=== PATIENT | female | born 1970 | race Caucasian/White ===

== ENCOUNTER 2024-05-04 09:05 | Emergency (ER) | payer OTHER, SELFPAY ==
--- OUTSIDE RECORDS SUMMARY | 2024-05-04 09:09 | XMS_ITS | Encounter Summary ---
Author Organization [facility] Address [address] [place] [address]. [place] [address] Care Team Providers Care Bedspread Seamer Name Role Phone Maria Garcia EXHIBITS COORDINATOR Unavailable [phone] Rachana Collins Brien Hannon Unavailable [phone] Sonja Lemon MD Unavailable [phone] Anitra Albarran MD Unavailable [phone] Jayla Metcalf MD Primary Care Provider Jayla Metcalf MD Unavailable Maxi Massey MD Unavailable [phone] Olga Lui APRN [facility] Unavailable Reason for Visit * Reason Onset Date Comments Vaginal Discharge Entered automa tically based on patient selection in [facility] Vaginal Problem 03/27/2024 Encounter Details Date Type Department Care Team (Late st Contact Info) Description 03/27/2024 3:30 PM SUPERVISING FLOORPERSON E-Visit [facility] [address] [place] [address] [place] [address] [place] [address] Vaginal Discharge (Entered automatically b... Social History Tobacco Use Types Packs/Day Years Used Date Smoking Tobacco: Former Cigarettes Passive Smoke Exposure: Past Smokeless Tobacco: Never Alcohol Use Standard Drinks/Week Comments Yes 0 (1 standard drink = 0.6 oz pur e alcohol) PHQ-2 Answer Date Recorded PHQ-2 Score 0 04/15/2023 Adolescent Education Answer Date Record ed Getting School Help Needed Not on file 11/27 Food Insecurity Answer Date Recorded Within the past 12 months, d id you worry that your food would run out before you got money to buy more? Patient refused 2022 Within the past 12 months, d id the food you bought just not last and you didn t have money to get more? Patient refused 01/31/2023 Housing Stability Answer Date Recorded Do you have housing? (Barrie g is defined as stable permanent housing and does not include staying ouside in a car, in a tent, in an abandoned building, in an overnight custodial, or couch-surfing.) Patient refused 01/31/2023 Are you worried about losing your housing? Patie nt refused 01/31/2023 Financial Resource Strain Answer Date R ecorded Within the past 12 months, h ave you or your family members you live with been unable to get utilities (heat, electricity) when it was really needed? Patient refused 023 Transportation Needs Answer Date Record ed Within the past 12 months, h as lack of transportation kept you from medical appointments, getting your medicines, non-medical meetings or appointments, work, or from getting things that you need? Patient refused 01/31/2023 Interpersonal Safety Answer Date Record ed Do you feel physically and e motionally safe where you currently live? Yes 12/20/2023 Within the past 12 months, h ave you been hit, slapped, kicked or otherwise physically hurt by someone? No 12/20/2023 Within the past 12 months, h ave you been humiliated or emotionally abused in other ways by your partner or ex-partner? No 12/20/2023 Comments No Sex and Gender Information Value Date Recorded Sex Assigned at Not on file Legal Sex Female 6:22 AM SUPERVISING FLOORPERSON Gender Identity Not on file Sexual Orientation Not on file documented as of this encounter Miscellaneous Notes * Addendum Note - Jayla Metcalf MD - 03/27/2024 3:30 PM CSTAddended by: JAYLA METCALF on: 03/29/2024 12:31 PM Modules accepted: Orders RVISING FLOORPERSON * Telephone Encounter - Jayla Metcalf MD - 03/27/2024 3:23 PM CST Provider E-Visit time total (minutes): 4 RVISING FLOORPERSON documented in this encounter Plan of Treatment Upcoming Encounters Date Type Department Care Team (Late st Contact Info) Description 05/10/2024 3:00 PM SUPERVISING FLOORPERSON [facility] [address] [place] [address] [place] [address] [place] [address] documented as of this encounter Results * Multiplex Vaginal Panel by PCR (03/28/2024 1:56 PM SUPERVISING FLOORPERSON) Pathologist [facility] Bacterial Vaginosis Organism DNA Negative Negative 03/28/2024 8:57 PM SUPERVISING FLOORPERSON [facility] Comment: Indicator DNA target(s) related to bacterial vaginosis organisms is/are not detected. Organisms associated with bacterial vaginosis that are targeted in this assay include Atopobium spp., Bacterial Vaginosis-Associated Bacterium-2, and Megasphaera-1. Detected organisms are not reported individually. Rita Group DNA Not Detected Not Detected 03/28/2024 8:57 PM SUPERVISING FLOORPERSON [facility] Comment:Rita group specie s detected by this target include C. albicans, C. tropicalis, C. parapsilosis, C. dubliniensis. Rita glabrata / Rita krusei DNA Not Detected Not Detected 03/28/2024 8:57 PM SUPERVISING FLOORPERSON [facility] Trichomonas vaginalis DNA Not Detected Not Detected 03/28/2024 8:57 PM SUPERVISING FLOORPERSON [facility] Swab VAGINAL STRUCTURE / Unknown Non-blood Collection / Unknown 03/28/2024 1:56 PM SUPERVISING FLOORPERSON 03/28/2024 1:56 PM SUPERVISING FLOORPERSON Narrative [facility] - 03/28/2024 8:57 PM SUPERVISING FLOORPERSON The Xpert Xpress MVP test, performed on the [employer], is an automated, qualitative in vitro diagnostic test for the detection of DNA targets from anaerobic bacteria associated with bacterial vaginosis, Rita species associated with vulvovaginal candidiasis, and Trichomonas vaginalis. The assay uses clinician-collected and self-collected vaginal swabs from patients who are symptomatic for vaginitis/ vaginosis. The Xpert Xpress MVP test utilizes real-time polymerase chain reaction (PCR) for the amplification of specific DNA targets and utilizes fluorogenic target-specific hybridization probes to detect and differentiate DNA. It is intended to aid in the diagnosis of vaginal infections in women with a clinical presentation consistent with bacterial vaginosis, vulvovaginal candidiasis, or trichomoniasis. The assay targets three anaerobic microorgansims that are associated with bacterial vaginosis (BV). Other organisms that are not detected by the Xpert Xpress MVP test have also been reported to be associated with BV. The BV organism and Rita species targets of the Xpert Xpress MVP test can be commensal in women; positive results must be considered in conjunction with other clinical and patient information to determine the disease status. Jayla Metcalf MD LAB - MICRO GENERAL ORDERABLES F inal Result [facility] Inf. Diseases Diag. Lab [address] [facility], [address] [place] [id number] documented in this encounter Visit Diagnoses Diagnosis Abdominal pain, left lower quadrant- Primary Thrush Candidiasis of mouth documented in this encounter Care Teams Bedspread Seamer Relationship Specialty Start [place] [address] [place] [address] PCP - General Internal Medicine 11/21/23 Maria Garcia NP [address] [place] [address] Nurse Practitioner 09/28/22 Rachana Collins AuD [address] [place] [address] Stock Analyst Audiology 09/28/22 Sonja Lemon MD [address] [place] [address] parking meter collector 07/26/23 Anitra Albarran MD [address] [place] [address] parking meter collector 09/26/23 [place] [address] [place] [address] Assigned PCP 12/28/23 Maxi Massey MD [address] [place] [address] parking meter collector 02/15/24 Olga Lui APRN [employer] [address] [address] Assigned OBGYN Provider 03/29/24 documented as of this encounter
--- OUTSIDE RECORDS SUMMARY | 2024-05-04 09:09 | XMS_ITS | Encounter Summary ---
Author Organization [facility] Address [address] [place] [address] Care Team Providers Care Apprentice Name Role Phone Maria Garcia SOLAR PROJECT MANAGER Unavailable [phone] Rachana Collins AuD Unavailable [phone] Sonja Lemon MD Unavailable [phone] Anitra Albarran MD Unavailable [phone] Jackelyn Metcalf MD Primary Care Provider [phone] Jackelyn Metcalf MD Unavailable Maxi Massey MD Unavailable [phone] Encounter Details Date Type Department Care Team (Latest Contact Info) Description 03/28/2024 Travel Social History Tobacco Use Types Packs/Day Years [...] Answer Date Recorded Do you have housing? (Housin g is defined as stable permanent housing and does not include staying ouside in a car, in a tent, in an abandoned building, in an overnight chcf, or couch-surfing.) Patient refused 01/31/2023 Are you worried about losing your housing? Kassidye nt refused 01/31/2023 Financial Resource Strain Answer [...] on file Legal Sex Female 6:22 AM SENIOR OPERATOR Gender Identity Not on file Sexual Orientation Not on file documented as of this encounter Plan of Treatment Upcoming Encounters Date Type Department Care Team (Late st Contact Info) Description 05/10/2024 3:00 PM SENIOR OPERATOR Office Visit [facility] [address] [place] [address] [place] [address] [place], [place] [id number] documented as of this encounter Visit Diagnoses Not on filedocumented in this encounter Care Teams Apprentice Relationship Specialty Start [place] [address] [address] [facility] [place] [id number] PCP - General Internal Medicine 11/21/23 Maria Garcia NP [address] [place] [address] Nurse Practitioner 09/28/22 Rachana Collins AuD [address] [place] [address] Mechanical Estimator Audiology 09/28/22 Sonja Lemon MD [address] [place] [address] byproduct engineer 07/26/23 Anitra Albarran MD [address] [place] [address] byproduct engineer 09/26/23 [place] [address] [place] [address] Assigned PCP 12/28/23 Maxi Massey MD [address] [place] [address] byproduct engineer 02/15/24 documented as of this encounter
--- OUTSIDE RECORDS SUMMARY | 2024-05-04 09:09 | XMS_ITS | Encounter Summary ---
Author Organization [facility] Address [address] [place] [address] Care Team Providers Care Scientific Process Operator Name Role Phone Maria Garcia CANDLE POURER Unavailable [phone] Rachana Collins Unavailable [phone] Sonja Lemon MD Unavailable [phone] Anitra Albarran MD Unavailable [phone] Jayla Metcalf MD Primary Care Provider [phone] Jayla Metcalf MD Unavailable Maxi Massey MD Unavailable [phone] Olga Lui APRN [facility] Unavailable [phone] Encounter Details Date Type Department Care Team (Late st Contact Info) Description 04/12/2024 8:00 AM [facility] [address] [place] [address] Vaginal discharge Social History Tobacco Use Types Packs/Day Years [...] Date Recorded Do you have housing? (Barrie santos is defined as stable permanent housing and does not include staying ouside in a car, in a tent, in an abandoned building, in an overnight nursing home, or couch-surfing.) Patient refused 01/31/2023 Are you [...] on file Legal Sex Female 6:22 AM GANG PUSHER Gender Identity Not on file Sexual Orientation Not on file documented as of this encounter Miscellaneous Notes * Addendum Note - Jayla Metcalf MD - 04/12/2024 8:00 AM CSTAddended by: JAYLA METCALF T on: 04/12/2024 08:10 AM Modules accepted: Orders PUSHER documented in this encounter Plan of Treatment Upcoming Encounters Date Type Department Care Team (Late st Contact Info) Description 05/10/2024 3:00 PM GANG PUSHER Office Visit [facility] [address] [place] [id number] [place] [address] [place] [id number] Scheduled Orders Name Type Priority Associated Diagnoses Orde r Schedule Wet prep - lab collect Microbiology Routine Vaginal discharge 12 Occurrences starting 04/12/2024 until 04/12/2025, 2 completed documented as of this encounter Procedures Procedure Name Priority Date/Time Associated Diagnosis Comments WET PREPARATION Routine 04/12/2024 7:19 AM GANG PUSHER Vaginal discharge documented in this encounter Results * (ABNORMAL) Wet prep - lab collect (04/24/2024 11:58 AM GANG PUSHER) Trichomonas Absent Absent KAVYA 04/24/2024 12:04 PM GANG PUSHER RM LABORATORY Yeast Absent Absent KAVYA 04/24/2024 12:04 PM GANG PUSHER RM LABORATORY Clue Cells Absent Absent KAVYA 04/24/2024 12:04 PM GANG PUSHER RM LABORATORY WBCs/high power field 2+(A) None KAVYA 04/24/2024 12:04 PM GANG PUSHER RM LAB[facility]ATORY Swab VAGINAL STRUCTURE / Unknown Non-blood Collection / Unknown 04/24/2024 11:58 AM GANG PUSHER 04/24/2024 11:58 AM GANG PUSHER us Jayla Metcalf MD LAB - MICRO GENERAL ORDERABLES F inal Result LABORATORY [facility] [place] [facility] [address] [facility] (no room number, 1st floor of clinic) [place] [address], [facility] * (ABNORMAL) Wet prep - lab collect (04/18/2024 3:39 PM GANG PUSHER) Trichomonas Absent Absent KAVYA 04/18/2024 3:53 PM GANG PUSHER RM LABORATORY Yeast Absent Absent KAVYA 04/18/2024 3:53 PM GANG PUSHER RM LABORATORY Clue Cells Present(A) Absent KAVYA 04/18/2024 3:53 PM GANG PUSHER RM LABORATORY WBCs/high power field None None KAVYA 04/18/2024 3:53 PM GANG PUSHER RM LABORATORY Swab VAGINAL STRUCTURE / Unknown Non-blood Collection / Unknown 04/18/2024 3:39 PM GANG PUSHER 04/18/2024 3:52 PM GANG PUSHER Jayla Metcalf MD LAB - MICRO GENERAL ORDERABLES F inal Result LABORATORY [facility] [place] [facility] [address] [facility] (no room number, 1st floor of clinic) [place] [phone], [facility] * (ABNORMAL) Wet prep - lab collect (04/12/2024 7:19 AM GANG PUSHER) Trichomonas Absent Absent KAVYA 04/12/2024 7:25 AM GANG PUSHER LABORATORY Yeast Present(A) Absent KAVYA 04/12/2024 7:25 AM GANG PUSHER LABORATORY Clue Cells Absent Absent KAVYA 04/12/2024 7:25 AM GANG PUSHER LABORATORY WBCs/high power field 1+(A) None KAVYA 04/12/2024 7:25 AM GANG PUSHER LABORATORY Swab VAGINAL STRUCTURE / Unknown Non-blood Collection / Unknown 04/12/2024 7:19 AM GANG PUSHER 04/12/2024 7:19 AM GANG PUSHER Jayla Metcalf MD LAB - MICRO GENERAL ORDERABLES F inal Result LABORATORY [facility] [place] [facility] [address] [facility] (no room number, 1st floor of clinic) [place] [phone], [facility] documented in this encounter Visit Diagnoses Diagnosis Vaginal discharge Leukorrhea, not specified as infective documented in this encounter Care Teams Scientific Process Operator Relationship Specialty Start [place] [address] [place] [address] PCP - General Internal Medicine 11/21/23 Maria Garcia NP [address] [place] [address] Nurse Practitioner 09/28/22 Rachana Collins AuD [address] [place] [address] Storage Management Consultant Audiology 09/28/22 Sonja Lemon MD [address] [place] [address] divisional human resources director 07/26/23 Anitra Albarran MD [address] [place] [address] divisional human resources director 09/26/23 [place] [address] [place] [address] Assigned PCP 12/28/23 Maxi Massey MD [address] [place] [address] divisional human resources director 02/15/24 Olga Lui APRN CNP [address] [facility] [address] [id number] Assigned OBGYN Provider 03/29/24 documented as of this encounter
--- OUTSIDE RECORDS SUMMARY | 2024-05-04 09:09 | XMS_ITS | Encounter Summary ---
Author Organization [facility] Address [address] [place] [address]. [place] [address] Care Team Providers Care Manager Mobile Name Role Phone Maria Garcia PRINTED CIRCUIT BOARD ASSEMBLER Unavailable [phone] Rachana Collins Brien Hannon Unavailable [phone] Sonja Lemon MD Unavailable [phone] Anitra Albarran MD Unavailable [phone] Jackelyn Metcalf MD Primary Care Provider [phone] Jackelyn Metcalf MD Unavailable Maxi Massey MD Unavailable [phone] Olga Lui APRN [facility] Unavailable [phone] Reason for Visit * Reason Onset Date Comments Vaginal Discharge En[facility] automa [facility]ically [facility] Vaginal Problem 04/11/2024 Encounter Details Date Type Department Care Team (Late st Contact Info) Description 04/11/2024 11:30 AM FIBERGLASS SKI MAKER E-Visit [facility] [address] [place] [address] [place] [address] [place] [address] Vaginal Discharge (Entered automatically b... [...] in an abandoned building, in an overnight long term, or couch-surfing.) Patient refused 01/31/2023 Are you [...] on file Legal Sex Female 6:22 AM FIBERGLASS SKI MAKER Gender Identity Not on file Sexual Orientation Not on file documented as of this encounter Miscellaneous Notes * Telephone Encounter - Jackelyn Metcalf MD - 04/11/2024 12:11 PM CST Provider E-Visit time total (minutes): 3 RGLASS SKI MAKER documented in this encounter Plan of Treatment Upcoming Encounters Date Type Department Care Team (Late st Contact Info) Description 05/10/2024 3:00 PM FIBERGLASS SKI MAKER Office Visit [facility] [address] [facility] [place] [phone] [place] [address] [address] [place] [address] documented as of this encounter Results * (ABNORMAL) Wet prep - lab collect (04/12/2024 7:19 AM FIBERGLASS SKI MAKER) Trichomonas Absent Absent KAVYA 04/12/2024 7:25 AM FIBERGLASS SKI MAKER LABORATORY Yeast Present(A) Absent KAVYA 04/12/2024 7:25 AM FIBERGLASS SKI MAKER RM LABORATORY Clue Cells Absent Absent KAVYA 04/12/2024 7:25 AM FIBERGLASS SKI MAKER LABORATORY WBCs/high power field 1+(A) None KAVYA 04/12/2024 7:25 AM FIBERGLASS SKI MAKER LABORATORY Swab VAGINAL STRUCTURE / Unknown Non-blood Collection / Unknown 04/12/2024 7:19 AM FIBERGLASS SKI MAKER 04/12/2024 7:19 AM FIBERGLASS SKI MAKER us Jackelyn Metcalf MD LAB - MICRO GENERAL ORDERABLES F inal Result LABORATORY [facility] [place] [facility] [address] [facility] (no room number, 1st floor of clinic) [place] [id number] documented in this encounter Visit Diagnoses Diagnosis Vaginal discharge- Primary Leukorrhea, not specified as infective Bacterial vaginosis Vaginitis and vulvovaginitis, unspecified documented in this encounter Care Teams Manager Mobile Relationship Specialty Start [place] [address] [place] [id number] PCP - General Internal Medicine 11/21/23 Maria Garcia NP [address] [place] [address] Nurse Practitioner 09/28/22 Rachana Collins AuD [address] [place] [address] Sealer Dry Cell Audiology 09/28/22 Sonja Lemon MD [address] [place] [address] outside solar sales consultant 07/26/23 Anitra Albarran MD [address] [place] [address] outside solar sales consultant 09/26/23 [place] [address] [place] [address] Assigned PCP 12/28/23 Maxi Massey MD [address] [place] [address] outside solar sales consultant 02/15/24 Olga Lui APRN FINANCE ASSOCIATE [address] [address] Assigned OBGYN Provider 03/29/24 documented as of this encounter
--- OUTSIDE RECORDS SUMMARY | 2024-05-04 09:09 | XMS_ITS | Clinical Summary ---
Author Organization [facility] Address [address] [place] [address] Care Team Providers Care Hardboard Panel Printer Name Role Phone Unavailable Primary Care Provider Unavailabl e Allergies Active Allergy Reactions Criticality Noted Date Comments Codeine 06/17/2009 Other reaction(s): GI Upset, Nausea Only Medications hydrOXYzine HCl (ATARAX) 25 mg oral tabletIndication s:Insomnia, unspecified type Take 1-2 tablets (25-50 mg) by mouth at bedtime as needed for sleep. 90 tablet 3 1 Active triamcinolone acetonide (KENALOG) 0.5 % Top topical cream Apply 1 Application to skin twice a day. 454 g 2 Active propranoloL (INDERAL) 20 mg oral tabletIndication s:PAULA (generalized anxiety disorder) Take 1 tablet (20 mg) by mouth twice a day. 180 tablet 3 2 Active albuterol HFA (PROVENTIL;FAITH KAMILA HFA) 90 mcg/actuation Inhl inhaler Inhale 2 puffs every 4 (four) hours as needed. 18 g 3 3 Active ofloxacin 0.3% (FLOXIN) 0.3 % Otic Drop Instill 10 drops into EACH ear once daily. 10 mL 3 Active FLUoxetine (PROZAC) 20 mg oral capsuleIndicatio ns:PAULA (generalized anxiety disorder) Take 1 capsule (20 mg) by mouth once daily. 90 capsule 3 3 Active omeprazole (PRILOSEC) 20 mg oral delayed release capsuleIndicatio ns:Gastroesophag eal reflux disease, unspecified whether esophagitis present Take 1 capsule (20 mg) by mouth once daily. 90 capsule 3 3 Active traZODone (DESYREL) 50 mg oral tabletIndication s:Insomnia, unspecified type TAKE ONE AND ONE-HALF TABLETS BY MOUTH ONCE DAILY 135 tablet 3 3 Active FLUoxetine (PROZAC) 10 mg oral capsuleIndicatio ns:PAULA (generalized anxiety disorder) Take 1 capsule (10 mg) by mouth once daily. In addition to 20mg capsule 90 capsule 3 3 Active valACYclovir (VALTREX) 1 gram oral tablet Take 2 tablets (2,000 mg) by mouth every 12 (twelve) hours. Take 2 pills q 12 hours x 2 doses. 12 tablet 3 3 Active amoxicillin (AMOXIL) 875 mg oral tabletIndication s:Acute sinusitis, recurrence not specified, unspecified location Take 1 tablet (875 mg) by mouth twice a day. 20 tablet 3 Active Active Problems Problem Noted Date Diagnosed Date PAULA (generalized anxiety disorder) Immunizations Name Administration Dates Next Due DTaP (Daptacel) 01/17/2006 H1N1 Influenza 02/19/2009 Influenza recombinant (FluBl ok Quadrivalent PF) 11/20/2018,11/14/2017,01/06/2016 Influenza split virus quadrivalent 12/08,12/21/2016,12/10/2014,2013,12/19/2012,01/07/2012,12/21/2010,1 ,12/12/2006,01/04/2006 Test.tv 12+ Yrs Monovalent CO VID Vaccine (purple cap) 02/13/2021,05/08/2020,04/17/2020 Tdap 04/08/2016 Family History Medical History Relation Comments High Blood Pressure Father High Cholesterol Father Other Disease Father rectal cancer Colon Cancer Maternal Grandfather Heart Disease Maternal Grandmother High Blood Pressure Maternal Grandmother Multiple Sclerosis Mother Heart Disease Paternal Grandfather Stroke Paternal Grandmother Breast Cancer Neg Family Hx Ovarian Cancer Neg Family Hx Relation Status Comments Brother 1 Alive Brother 2 Alive Father Alive Maternal Grandfather Maternal Grandmother Mother Paternal Grandfather Paternal Grandmother Sister 1 Alive Sister 2 Alive Social History Tobacco Use Types Packs/Day Years Used Date Smoking Tobacco: Some Days Smokeless Tobacco: Never Tobacco Cessation:Ready to Q uit: Not Asked; Counseling Given: Not Answered PHQ-2 Answer Date Recorded PHQ2 Total 0 11/13/2021 Comments No Sex and Gender Information Value Date Recorded Sex Assigned at Not on file Legal Sex Female 4:16 PM CDT Gender Identity Not on file Sexual Orientation Not on file Last Filed Vital Signs Vital Sign Reading Time Taken Comments Blood Pressure 116/60 11/13/2021 9:31 AM CDT Pulse 67 11/13/2021 9:31 AM CDT Temperature 36.7 C (98 F) 10/23/2021 10:57 AM CDT Respiratory Rate - - Oxygen Saturation 98% 10/23/2021 10:57 AM CDT Inhaled Oxygen Concentration - - Weight 64.9 kg (143 lb) 11/13/2021 9:31 AM CDT Height 167 cm (5' 5.75) 11/13/2021 9:31 AM CDT Body Mass Index 23.26 11/13/2021 9:31 AM CDT Plan of Treatment Health Maintenance Due Date Last Done Comments Colonoscopy 1970 Hepatitis C Screening 1970 Anxiety Follow-Up (PAULA-7) 1971 Depression Assessment (PHQ-2) 1971 Pneumococcal 50+ Years (1 of 1 - PCV) 2020 Zoster Vaccine (1 of 2) 2020 Yearly Review of HCD 11/13/2022 11/13/2021 Mammogram Screening 05/30/2023 05/29/2021, 9 COVID-19 Vaccine ( season) 2023 02/13/2021, 05/08/2020, 04/17/2020 Influenza Vaccine (#1) 2023 , 11/20/2018, 11/14/2017, Additional history exists Pap Smear 11/18/2024 11/19/2019 Adult Tetanus Booster 04/08/2026 04/08/2016 Lipid Screening 11/13/2026 11/13/2021, 11/16/2019 RSV Vaccines (1 - 1-dose 75+ series) 2045 Pneumococcal Vaccine Aged Out No long er eligible based on patient's age to complete this topic Procedures Procedure Name Priority Date/Time Associated Diagnosis Comments LIPID PROFILE CASCADE Routine 11/13/2021 10:21 AM CDT Screening for cholesterol level MAMMO DIGITAL SCREENING BI Routine 05/29/2021 9:27 AM CDT Visit for screening mammogram PAP (RESEARCH MANUFACTURING OPERATOR CYTOLOGY) Routine 11/19/2019 8: 43 AM CDT Screening for cervical cancer from Last 3 Months or Most Recently Relevant to Health Maintenance Results * (ABNORMAL) LIPID PROFILE CASCADE (11/13/2021 10:21 AM CDT) CHOLESTEROL 257.0(H) 0.0 - 200.0 mg/dL [facility] TRIGLYCERIDES 116.0 0.0 - 200.0 mg/dL [facility] HDL 53.0 40.0 - 60.0 mg/dL [facility] LDL 180.8(H) 0.0 - 130.0 [facility] CHOL HDL RATIO 4.8(H) 0.0 - 4.0 [facility] Blood VENOUS BLOOD SPECIMEN / Unknown 11/13/2021 10:21 AM CDT Yoana Chicas APRN, NP CHEMISTRY ORDERABLE Zuleyka l Result [facility] [address] [address], * MAMMO DIGITAL SCREENING BI (05/29/2021 9:27 AM CDT) Anatomical Region Laterality Modality Breast Bilateral Mammography Impressions 05/29/2021 9:49 AM CDT : There is no mammographic evidence of malignancy. RECOMMENDATION: - A screening mammogram in 1 year. BI-RADS: Overall: 2 - Benign The patient will be notified of the results. REPORT SIGNED BY Vlad Gomes MD Narrative 05/29/2021 9:49 AM CDT EXAM: MAMMO DIGITAL SCREENING BI REASON FOR EXAM: Routine screening mammogram COMPARISON: Compared to: 02/08/2019 MAMMO DIGITAL SCREENING BI, 12/10/2011 MAMMO OUTSIDE STUDY, and 05/14/2010 MAMMO OUTSIDE STUDY TECHNIQUE: Craniocaudal and oblique digital views were obtained. Current study was evaluated with Computer Aided Detection (CAD) system. FINDINGS: The breasts are heterogeneously dense. There are benign appearing calcifications present in the left breast. No significant masses, calcifications, or other findings are seen. There has been no significant interval change. Yoana Chicas APRN, NP MAMMO ORDERABLE Final Re sult * PAP TEST (RESEARCH MANUFACTURING OPERATOR CYTOLOGY) (11/19/2019 8:43 AM CDT) Case Report Pap Smear Case: [id number] Authorizing Provider: Yoana Chicas APRN, NP Collected: 11/19/2019 08:43 AM Ordering Location: [facility] - Received: 11/19/2019 05:[address] [facility] First Screen: Noah Hernandez Specimen: Cervical Thin Prep with HPV Test Assistant Professor Of Spanish Screening, Cervix 11/21/2019 2:[address] [facility] Interpretation Negative for intraepithelial lesion or malignant cells. 11/21/2019 2:[address] [facility] Specimen Adequacy Satisfactory for evaluation. Endocervical/trans formation zone component present. 11/21/2019 2:41 PM CDT [facility] LMP 07/05/16 11/21/2019 2:[address] [facility] Pap Disclaimer This specimen was screened by the [facility] prior to manual review by a service learning coordinator and/or pathologist. The Pap test is a screening test and has an irreducible false-negative rate. Routine periodic testing and follow-up of unexplained clinical signs and symptoms are important to minimize the consequence of false-negative Pap tests. Blayne et al. 2012 Updated Consensus Guidelines for the Management of Abnormal Cervical Cancer Screening Tests and Cancer Precursors. J Low Genit Tract Dis 2013; 17 (5): S2-S27 11/21/2019 2:[address] [facility] Vaginal and cervical cytologic material (specimen) CERVIX UTERI STRUCTURE / Unknown 11/19/2019 8:43 AM CDT 11/19/2019 5:43 PM CDT Comment:Patient's last menst rual period was 07/05/2016. Yoana Chicas APRN, NP PATHOLOGY/CYTOLOGY ORDER ABLE Final Result [facility] [address] [place] [address] from Last 3 Months or Most Recently Relevant to Health Maintenance Insurance [employer] OPEN ACCESS/CHOICE
--- OUTSIDE RECORDS SUMMARY | 2024-05-04 09:09 | XMS_ITS | Encounter Summary ---
Author Organization [facility] Address [address] [place] [address] Care Team Providers Care Moccasin Sewer Name Role Phone Maria Garcia NP Unavailable [phone] Rachana Collins Unavailable [phone] Olga Lui APRN MOTORCYLES FINAL INSPECTOR Unavailable [phone] Samaria Cash PA-C Unavailable [phone] Samaria CashC Primary Care Provider [phone] Sonja Lemon MD Unavailable [phone] Anitra Albarran MD Unavailable [phone] Jackelyn Metcalf MD Primary Care Provider [phone] Jackelyn Metcalf MD Unavailable Solange Castellon PA-C Unavailable [phone] Maxi Massey MD Unavailable [phone] Olga Lui APRN MOTORCYLES FINAL INSPECTOR Unavailable [phone] Reason for Visit * Reason Onset Date Comments Mouth/Lip Problem 07/27/2023 Encounter Details Date Type Department Care Team (Late st Contact Info) Description 07/27/2023 [facility] Medical Advice [address] [address] Samaria Cash PA-C [address] [facility] [address] [place] [address] Mouth/Lip Problem Social History Tobacco Use Types Packs/Day Years [...] in an abandoned building, in an overnight assisted, or couch-surfing.) Patient refused 01/31/2023 Are you [...] motionally safe where you currently live? Yes 01/31/2023 Within the past 12 months, h ave you been hit, slapped, kicked or otherwise physically hurt by someone? No 01/31/2023 Within the past 12 months, h ave you been humiliated or emotionally abused in other ways by your partner or ex-partner? No 01/31/2023 Comments No Sex and Gender Information Value Date Recorded Sex Assigned at Not on file Legal Sex Female 6:22 AM EMERGENCY TELECOMMUNICATIONS DISPATCHER Gender Identity Not on file Sexual Orientation Not on file documented as of this encounter Miscellaneous Notes * Telephone Encounter - Leda Roldan RN - 07/27/2023 8:39 AM CDT Samaria- see [facility] message below. Please advise. Leda Roldan RN documented in this encounter Plan of Treatment Upcoming Encounters Date Type Department Care Team (Late st Contact Info) Description 05/10/2024 3:00 PM EMERGENCY TELECOMMUNICATIONS DISPATCHER Office Visit [facility] [address] [place] [address] [place] [address] [place], [place] [id number] documented as of this encounter Visit Diagnoses Diagnosis Thrush- Primary Candidiasis of mouth documented in this encounter Care Teams Moccasin Sewer Relationship Specialty Start Date End Date Samaria Cash PA-C 6565 [facility] [address] [address]2385 PCP - General Family Medicine 03/10/23 11/14/23 [place] [address] [place], [place] 4668568 PCP - General Internal Medicine 11/21/23 Maria Garcia NP [address] [place] [address] 105135 Nurse Practitioner 09/28/22 Rachana Collins AuD [address] [place] [address] [id number] Bullet Assembly Press Operator Audiology 09/28/22 Olga Lui APRN MOTORCYLES FINAL INSPECTOR [address] [place] [address] Assigned OBGYN Provider 12/25/2202/25 Samaria Cash PA-C [address] [place], [place] 303335 Assigned PCP 02/26/23 12/27/23 Sonja Lemon MD [address] [place] [place], [place] 700947 peanut grader 07/26/23 Anitra Albarran MD [address] [place], [place] 941757 peanut grader 09/26/23 [place] [address] [place] [address] Assigned PCP 12/28/23 Solange Castellon PA-C [address] [place] [address] Physician Inspector Watch Assembly peanut grader 02/15/24 02/15/24 Maxi Massey MD [address] [place], [place] 405037 peanut grader 02/15/24 Olga Lui APRN MOTORCYLES FINAL INSPECTOR [address] [place] [address] Assigned OBGYN Provider 03/29/24 documented as of this encounter
--- OUTSIDE RECORDS SUMMARY | 2024-05-04 09:09 | XMS_ITS | Encounter Summary ---
Author Organization [facility] Address [address] [place] [address] Care Team Providers Care Evp Global Product Leadership Name Role Phone Maria Garcia NP Unavailable [phone] Rachana Collins Unavailable [phone] Olga Lui APRN SENIOR INFORMATION SECURITY ENGINEER Unavailable [phone] Samaria Cash PA-C Unavailable Samaria Cash PA-C Primary Care Provider [phone] Sonja Lemon MD Unavailable [phone] Anitra Albarran MD Unavailable [phone] Jackelyn Metcalf MD Primary Care Provider [phone] Jackelyn Metcalf MD Unavailable Solange Castellon PA-C Unavailable [phone] Maxi Massey MD Unavailable [phone] Olga Lui APRN SENIOR INFORMATION SECURITY ENGINEER Unavailable [phone] Encounter Details Date Type Department Care Team (Late st Contact Info) Description 2023 [facility] [address] [place] [address] 700 [place] [address] Olga Lui APRN SENIOR INFORMATION SECURITY ENGINEER [address] [place] [address] 700 [place] [address] Vaginal symptom (Primary Dx) Social History Tobacco Use Types Packs/Day Years Used Date Smoking Tobacco: Former Cigarettes Passive Smoke Exposure: Never Smokeless Tobacco: Never Alcohol Use Standard Drinks/Week [...] in an abandoned building, in an overnight [facility], or couch-surfing.) Patient refused 01/31/2023 Are you [...] on file Legal Sex Female 6:22 AM BENEFITS ANALYST Gender Identity Not on file Sexual Orientation Not on file documented as of this encounter Plan of Treatment Upcoming Encounters Date Type Department Care Team (Late st Contact Info) Description 05/10/2024 3:00 PM BENEFITS ANALYST Office Visit [facility] [place] [address] [place] [phone] [place] [address] [place] [address] documented as of this encounter Visit Diagnoses Diagnosis Vaginal symptom- Primary documented in this encounter Care Teams Evp Global Product Leadership Relationship Specialty Start Date End Date Samaria Cash PA-C [address] [place] [id number] PCP - General Family Medicine 03/10/23 11/14/23 [place] [address] [place] [address] PCP - General Internal Medicine 11/21/23 Maria Garcia NP [address]09 [place], [place] 161695 Nurse Practitioner 09/28/22 Rachana Collins AuD 9[address] [place], [place] 9937[address] Sheet Metal Worker Supervisor Audiology 09/28/22 Olga Lui APRN CNP [address] [place], [place] 267604 Assigned OBGYN Provider 12/25/2202/25 Samaria Cash PA-C [address] [place] 619475 Assigned PCP 02/26/23 12/27/23 Sonja Lemon MD [address] [place] [address] manager employee benefits 07/26/23 Anitra Albarran MD [address] [place] [address] manager employee benefits 09/26/23 [place] [address] [place] [address] Assigned PCP 12/28/23 Solange Castellon PA-C 6525 [facility] [place] [address] Physician Stitcher Hand manager employee benefits 02/15/24 02/15/24 Maxi Massey MD [address] [place], [place] [address] manager employee benefits 02/15/24 Olga Lui APRN SENIOR INFORMATION SECURITY ENGINEER [address] 228[address] Assigned OBGYN Provider 03/29/24 documented as of this encounter
--- OUTSIDE RECORDS SUMMARY | 2024-05-04 09:10 | XMS_ITS | Encounter Summary ---
Author Organization [facility] Address [address] [place] [address] Care Team Providers Care Lens Inserter Name Role Phone Maria Garcia NP Unavailable [phone] Rachana Collins Unavailable [phone] Olga Lui APRN SALES OFFICE ADMINISTRATOR Unavailable [phone] Samaria Cash PA-C Unavailable Samaria Cash PA-C Primary Care Provider [phone] Sonja Lemon MD Unavailable [phone] Anitra Albarran MD Unavailable [phone] Jackelyn Metcalf MD Primary Care Provider [phone] Jackelyn Metcalf MD Unavailable Solange Castellon PA-C Unavailable [phone] Maxi Massey MD Unavailable [phone] Olga Lui APRN SALES OFFICE ADMINISTRATOR Unavailable [phone] Encounter Details Date Type Department Care Team (Late st Contact Info) Description 05/25/2023 [facility] [address] [place] [address] 700 [place] [address] Olga Lui APRN SALES OFFICE ADMINISTRATOR [address] [place] [address] 700 [place], [place] 522974 Social History Tobacco Use Types Packs/Day Years [...] in an abandoned building, in an overnight group home, or couch-surfing.) Patient refused 01/31/2023 Are [...] on file Legal Sex Female 6:22 AM HR LEADER Gender Identity Not on file Sexual Orientation Not on file documented as of this encounter Miscellaneous Notes * Telephone Encounter - Olga Lui APRN CNP - 05/25/2023 1:00 PM CDT I placed orders, of note back in December I recc this pt to see one of the MD to look at a lesion onher vulva, I do not think she has had it evaluated, but she is having sx near monthly of UTI/bv/yeast, some positive, some negative I am concerned with this many sx that she may need to come in for eval. If she has not had this lesion evaluated, recommend/remind her to come in please and see if we can get to the bottom of why she is experiencing so vaginal sx. She can collect the urine today, we will see results but still should come in for evaluation for her vulvar lesion. Thx Olga Lui APRN CNP * Telephone Encounter - Juju Dinh RN - 05/25/2023 11:28 AM CDT Pt having bladder symptoms-want her to start e-visit or okay to order? Pain/pressure with urinating Routing to provider to advise. Juju Dinh RN on 05/25/2023 at 11:30 AM documented in this encounter Plan of Treatment Upcoming Encounters Date Type Department Care Team (Late st Contact Info) Description 05/10/2024 3:00 PM HR LEADER Office Visit [facility] [address] [place] [address] [place] [address] [place] [address] documented as of this encounter Visit Diagnoses Not on filedocumented in this encounter Care Teams Lens Inserter Relationship Specialty Start Date End Date Samaria Cash PA-C [address] [facility] [address] [place] [address] PCP - General Family Medicine 03/10/23 11/14/23 [place] [address] [place] [address] PCP - General Internal Medicine 11/21/23 Maria Garcia NP 909 [place] [address] Nurse Practitioner 09/28/22 Rachana Collins AuD 909 [place] [address] Traffic Signal Mechanic Audiology 09/28/22 Olga Lui APRN CNP [address] [place] [address] 700 [place] [address] Assigned OBGYN Provider 12/25/2202/25 Samaria Cash PA-C 6565 [facility] 200 [place] [address] Assigned PCP 02/26/23 12/27/23 Sonja Lemon MD [address] [place] [address] inbound sales manager 07/26/23 Anitra Albarran MD [address] [place] [address] inbound sales manager 09/26/23 [place] [address] [place] [address] Assigned PCP 12/28/23 Solange Castellon PA-C [address] [place] [address] Physician Tow Truck Driver inbound sales manager 02/15/24 02/15/24 Maxi Massey MD [address] [place] [address] inbound sales manager 02/15/24 Olga Lui APRN SALES OFFICE ADMINISTRATOR [address] [address] Assigned OBGYN Provider 03/29/24 documented as of this encounter
--- OUTSIDE RECORDS SUMMARY | 2024-05-04 09:10 | XMS_ITS | Encounter Summary ---
Author Organization [facility] Address [address] [place] [address] Care Team Providers Care Manufacturing Business Analyst Name Role Phone Maria Garcia SOCK LINING EXAMINER Unavailable [phone] Rachana Collins AuD Unavailable [phone] Sonja Lemon MD Unavailable [phone] Anitra Albarran MD Unavailable [phone] Jackelyn Metcalf MD Primary Care Provider [phone] Jackelyn Metcalf MD Unavailable Maxi Massey MD Unavailable [phone] Olga Lui APRN [facility] Unavailable [phone] Encounter Details Date Type Department Care Team (Late st Contact Info) Description 04/18/2024 4:00 PM [facility] [address] [place] [address] Vaginal discharge Social History Tobacco [...] in an abandoned building, in an overnight prison, or couch-surfing.) Patient refused 01/31/2023 Are you [...] on file Legal Sex Female 6:22 AM LICENSING WORKER Gender Identity Not on file Sexual Orientation Not on file documented as of this encounter Plan of Treatment Upcoming Encounters Date Type Department Care Team (Late st Contact Info) Description 05/10/2024 3:00 PM LICENSING WORKER Office Visit [facility] [address] [facility] [place] [address] [place] [address] [place] [address] documented as of this encounter Procedures Procedure Name Priority Date/Time Associated Diagnosis Comments WET PREPARATION Routine 04/18/2024 3:39 PM LICENSING WORKER Vaginal discharge documented in this encounter Results * (ABNORMAL) Wet prep - lab collect (04/18/2024 3:39 PM LICENSING WORKER) Trichomonas Absent Absent KAVYA 04/18/2024 3:53 PM LICENSING WORKER [facility] LAB[facility]ATORY Yeast Absent Absent KAVYA 04/18/2024 3:53 PM LICENSING WORKER [facility] Clue Cells Present(A) Absent KAVYA 04/18/2024 3:53 PM LICENSING WORKER [facility] WBCs/high power field None None KAVYA 04/18/2024 3:53 PM LICENSING WORKER [facility] Swab VAGINAL STRUCTURE / Unknown Non-blood Collection / Unknown 04/18/2024 3:39 PM LICENSING WORKER 04/18/2024 3:52 PM LICENSING WORKER us Jackelyn Metcalf MD LAB - MICRO GENERAL ORDERABLES F inal Result LABORATORY [facility] [place] [facility] [address] [facility] (no room number, 1st floor of clinic) [place] [address] documented in this encounter Visit Diagnoses Diagnosis Vaginal discharge Leukorrhea, not specified as infective documented in this encounter Care Teams Manufacturing Business Analyst Relationship Specialty Start [place] [address] [place], [place] [phone] PCP - General Internal Medicine 11/21/23 Maria Garcia NP [address] [place] [address] 023855 Nurse Practitioner 09/28/22 Rachana Collins AuD [address] [place] [address] Textile Conservator Audiology 09/28/22 Sonja Lemon MD [address] [place], [place] 309[address] marker machine 07/26/23 Anitra Albarran MD [address] [place] [address] marker machine 09/26/23 [place] [address] [place] [address] Assigned PCP 12/28/23 Maxi Massey MD [address] [place] [address] marker machine 02/15/24 Olga Lui APRN ASSISTANT ELEMENTARY TEACHER [address] [address] Assigned OBGYN Provider 03/29/24 documented as of this encounter
--- OUTSIDE RECORDS SUMMARY | 2024-05-04 09:10 | XMS_ITS | Encounter Summary ---
Author Organization [place] Address [address] [place] [address] Care Team Providers Care Nurse Advisor Name Role Phone Maria Garcia NP Unavailable [phone] Rachana Collins Unavailable [phone] Olga Lui APRN PLUGMAN Unavailable [phone] Samaria Cash PA-C Unavailable Samaria Cash PA-C Primary Care Provider [phone] Sonja Lemon MD Unavailable [phone] Anitra Albarran MD Unavailable [phone] Jackelyn Metcalf MD Primary Care Provider [phone] Jackelyn Metcalf MD Unavailable Solange Castellon PA-C Unavailable [phone] Maxi Massey MD Unavailable [phone] Olga Lui APRN PLUGMAN Unavailable [phone] Encounter Details Date Type Department Care Team (Late st Contact Info) Description 05/17/2023 [facility] [place] [facility] [address] [place] [address] 700 [place] [address] Olga Lui APRN PLUGMAN [address] [place] [address] 700 [place], [place] [id number] Yeast infection of the vagina (Primary Dx) Social History Tobacco Use Types [...] in an abandoned building, in an overnight fpc, or couch-surfing.) Patient refused 01/31/2023 Are you [...] on file Legal Sex Female 6:22 AM RAIL TRANSPORTATION OPERATOR Gender Identity Not on file Sexual Orientation Not on file documented as of this encounter Miscellaneous Notes * Telephone Encounter - Olga Lui APRN CNP - 05/17/2023 11:58 AM CDT Sent script documented in this encounter Plan of Treatment Upcoming Encounters Date Type Department Care Team (Late st Contact Info) Description 05/10/2024 3:00 PM RAIL TRANSPORTATION OPERATOR Office Visit [facility] [address] [place] [phone] [place] [address] [place], [place] [id number] documented as of this encounter Visit Diagnoses Diagnosis Yeast infection of the vagina- Primary Candidiasis of vulva and vagina documented in this encounter Care Teams Nurse Advisor Relationship Specialty Start Date End Date Samaria Cash PA-C [address] [facility] [address] [place], [place] [address] PCP - General Family Medicine 03/10/23 11/14/23 [place] [address] [place], [place] 2053768 PCP - General Internal Medicine 11/21/23 Maria Garcia NP [address] [place] [address] 060345 Nurse Practitioner 09/28/22 Rachana Collins AuD 9 [place], [place] 861415 Atomic Process Engineer Audiology 09/28/22 Olga Lui APRN CNP [address] [facility] [address] [place] [address] Assigned OBGYN Provider 12/25/2202/25 Samaria Cash PA-C [address] [facility] 200 [place] [address] Assigned PCP 02/26/23 12/27/23 Sonja Lemon MD [address] [place] [address] manpower development specialist manager 07/26/23 Anitra Albarran MD [address] [place] [address] manpower development specialist manager 09/26/23 [place] [address] [facility] [address] Assigned PCP 12/28/23 Solange Castellon PA-C [address] [place] [address] Physician Flat Surfacer manpower development specialist manager 02/15/24 02/15/24 Maxi Massey MD [address] [place] [address] manpower development specialist manager 02/15/24 Olga Lui APRN PLUGMAN 606 [facility] 700 [place] [address] Assigned OBGYN Provider 03/29/24 documented as of this encounter
--- OUTSIDE RECORDS SUMMARY | 2024-05-04 09:10 | XMS_ITS | Encounter Summary ---
Author Organization [place] Address [address] [place] [address] Care Team Providers Care Steel Division Supervisor Name Role Phone Maria Garcia TECHNICAL APPLICATIONS SCIENTIST Unavailable [phone] Rachana Collins AuD Unavailable [phone] Sonja Lemon MD Unavailable [phone] Anitra Albarran MD Unavailable [phone] Jackelyn Metcalf MD Primary Care Provider [phone] Jackelyn Metcalf MD Unavailable Maxi Massey MD Unavailable [phone] Olga Lui APRN [facility] Unavailable [phone] Encounter Details Date Type Department Care Team (Late st Contact Info) Description 04/24/2024 1:00 PM [facility] [address] [place] [address] Vaginal discharge Social History Tobacco [...] in an abandoned building, in an overnight skilled nursing, or couch-surfing.) Patient refused 01/31/2023 Are you [...] on file Legal Sex Female 6:22 AM SPARE FIXER Gender Identity Not on file Sexual Orientation Not on file documented as of this encounter Plan of Treatment Upcoming Encounters Date Type Department Care Team (Late st Contact Info) Description 05/10/2024 3:00 PM SPARE FIXER Office Visit [facility] [address] [facility] [place] [address] [place] [address] [facility] [place] [place] [address] documented as of this encounter Procedures Procedure Name Priority Date/Time Associated Diagnosis Comments WET PREPARATION Routine 04/24/2024 11:58 AM SPARE FIXER Vaginal discharge documented in this encounter Results * (ABNORMAL) Wet prep - lab collect (04/24/2024 11:58 AM SPARE FIXER) Trichomonas Absent Absent KAVYA 04/24/2024 12:04 PM SPARE FIXER RM LABORATORY Yeast Absent Absent KAVYA 04/24/2024 12:04 PM SPARE FIXER RM LABORATORY Clue Cells Absent Absent KAVYA 04/24/2024 12:04 PM SPARE FIXER RM LABORATORY WBCs/high power field 2+(A) None KAVYA 04/24/2024 12:04 PM SPARE FIXER RM LABORATORY Swab VAGINAL STRUCTURE / Unknown Non-blood Collection / Unknown 04/24/2024 11:58 AM SPARE FIXER 04/24/2024 11:58 AM SPARE FIXER us Jackelyn Metcalf MD LAB - MICRO GENERAL ORDERABLES F inal Result LABORATORY [facility] [place] Lab [address] [facility] (no room number, 1st floor of clinic) [place] [address] documented in this encounter Visit Diagnoses Diagnosis Vaginal discharge Leukorrhea, not specified as infective documented in this encounter Care Teams Steel Division Supervisor Relationship Specialty Start [place] [address] [place], [place] 50547[address] PCP - General Internal Medicine 11/21/23 Maria Garcia NP [address] [place] [address] 332915 Nurse Practitioner 09/28/22 Rachana Collins AuD [address] [place] [address] Thermite Welder Audiology 09/28/22 Sonja Lemon MD [address] [place], [place] 804[address] material disposition inspector 07/26/23 Anirta Albarran MD [address] [place] [address] material disposition inspector 09/26/23 [place] [address] [place] [address] Assigned PCP 12/28/23 Maxi Massey MD [address] [place] [address] material disposition inspector 02/15/24 Olga Lui APRN ONCOLOGIST [address] 033884 Assigned OBGYN Provider 03/29/24 documented as of this encounter
--- OUTSIDE RECORDS SUMMARY | 2024-05-04 09:10 | XMS_ITS | Encounter Summary ---
Author Organization [place] Address [address] [place] [address] Care Team Providers Care Learning And Development Associate Name Role Phone Maria Garcia CONCHE OPERATOR Unavailable [phone] [place] HillsRachana egan AuD Unavailable [phone] Sonja Lemon MD Unavailable [phone] Anitra Albarran MD Unavailable [phone] Jackelyn Metcalf MD Primary Care Provider [phone] Jackelyn Metcalf MD Unavailable Maxi Massey MD Unavailable [phone] Olga Lui APRN [facility] Unavailable [phone] Encounter Details Date Type Department Care Team (Latest Contact Info) Description 04/20/2024 Travel Social History Tobacco Use Types Packs/Day [...] in an abandoned building, in an overnight intermediate, or couch-surfing.) Patient refused 01/31/2023 Are you worried about losing your housing? Dulce Maria nt refused 01/31/2023 Financial Resource Strain Answer [...] on file Legal Sex Female 6:22 AM HASSOCK MAKER Gender Identity Not on file Sexual Orientation Not on file documented as of this encounter Plan of Treatment Upcoming Encounters Date Type Department Care Team (Late st Contact Info) Description 05/10/2024 3:00 PM HASSOCK MAKER Office Visit [facility] [address] [place] [phone] [place] [address] [address] [id number] documented as of this encounter Visit Diagnoses Not on filedocumented in this encounter Care Teams Learning And Development Associate Relationship Specialty [place] [address] [address] [place] [id number] PCP - General Internal Medicine 11/21/23 Maria Garcia NP 909 [place], [place] 938295 Nurse Practitioner 09/28/22 Rachana Collins AuD 909 [place], [place] 0[address] Treatment Coordinator Audiology 09/28/22 Sonja Lemon MD [address] [place], [place] 555157 hydraulic chair assembler 07/26/23 Anitra Albarran MD [address] [place], [place] [address] hydraulic chair assembler 09/26/23 [place] [address] [place] [address] Assigned PCP 12/28/23 Maxi Massey MD [address] [place] [address] hydraulic chair assembler 02/15/24 Olga Lui APRN AQUATICS LIFEGUARD [address] 642784 Assigned OBGYN Provider 03/29/24 documented as of this encounter
--- OUTSIDE RECORDS SUMMARY | 2024-05-04 09:10 | XMS_ITS | Encounter Summary ---
Author Organization [place] Address [facility] [place] [address] Care Team Providers Care Office Administration Instructor Name Role Phone Maria Garcia FUEL PILOT ENGINEER Unavailable [phone] KarinaRachana egan AuD Unavailable [phone] Sonja Lemon MD Unavailable [phone] Anitra Albarran MD Unavailable [phone] Jackelyn Metcalf MD Primary Care Provider Jackelyn Metcalf MD Unavailable Maxi Massey MD Unavailable [phone] Olga Lui APRN [facility] Unavailable Encounter Details Date Type Department Care Team (Late st Contact Info) Description 2024 10:30 AM SHIP'S ENGINEER Office Visit [facility] [address] [place] [address] [place] [address] [place] [address] Acute left-sided low back pain with left-sided sciatica Social History Tobacco Use Types Packs/Day Years [...] Date Recorded Do you have housing? (Barrie asntos is defined as stable permanent housing and does not include staying ouside in a car, in a tent, in an abandoned building, in an overnight snf, or couch-surfing.) Patient refused 01/31/2023 Are you [...] on file Legal Sex Female 6:22 AM SHIP'S ENGINEER Gender Identity Not on file Sexual Orientation Not on file documented as of this encounter Last Filed Vital Signs Vital Sign Reading Time Taken Comments Blood Pressure 137/78 2024 8:57 AM SHIP'S ENGINEER Pulse 79 2024 8:57 AM SHIP'S ENGINEER Temperature 36.6 C (97.9 F) 2024 8:57 AM SHIP'S ENGINEER Respiratory Rate 14 2024 8:57 AM SHIP'S ENGINEER Oxygen Saturation 97% 2024 8:57 AM SHIP'S ENGINEER Inhaled Oxygen Concentration - - Weight 58.1 kg (128 lb) 2024 8:57 AM SHIP'S ENGINEER Height 165.1 cm (5' 5) 2024 8:57 AM SHIP'S ENGINEER Body Mass Index 21.3 2024 8:57 AM SHIP'S ENGINEER documented in this encounter Progress Notes * Jackelyn Metcalf MD - 2024 10:30 AM CST Assessment & Plan Acute left-sided low back pain with left-sided sciatica Acute left hip pain Straight leg test negative Certain positions worsen the pain Intermittent shooting pain to the hip and the buttock Deny tingling numbness weakness GI/ issues Stable vital signs - CBC with platelets and differential; Future - Comprehensive metabolic panel (BMP + Alb, Alk Phos, ALT, AST, Total. Bili, TP); Future - ESR: Erythrocyte sedimentation rate; Future - CRP, inflammation; Future - cyclobenzaprine (FLEXERIL) 5 MG tablet; Take 1 tablet (5 mg) by mouth 3 times daily as needed formuscle spasms. - gabapentin (NEURONTIN) 100 MG capsule; Take 1 capsule (100 mg) by mouth daily as needed for neuropathic pain. Take Consider physical therapy. Patient wants to defer at this time. Interested in possible steroid injection. Referral to sports medicine. Antonio Fall is a 54 year old, presenting for the following health issues: No chief complaint on file. Left hip pain x 4 days Started Tuesday, was getting out of bed Pain is positional, dull on the hip some shooting pain down the groin and buttock Took 2 aleve with some relieve this morning Took gabapentin and flexeril last night with some relieve Slept ok overnight Had chills for the past couple of days. Pain isannoying Review of Systems Constitutional, HEENT, cardiovascular, pulmonary, gi and gu systems are negative, except as otherwise noted. Objective BP 137/78 (BP Location: Left arm, Patient Position: Sitting, Cuff Size: Adult Regular) Pulse 79 Temp 97.9 ??F (36.6 ??C) (Oral) Resp 14 Ht 1.651 m (5' 5) Wt 58.1 kg (128 lb) SpO2 97% BMI 21.30 kg/m?? Body mass index is 21.3 kg/m??. Physical Exam Constitutional: Appearance: Normal appearance. Eyes: Extraocular Movements: Extraocular movements intact. Cardiovascular: Rate and Rhythm: Normal rate and regular rhythm. Pulmonary: Effort: Pulmonary effort is normal. Breath sounds: Normal breath sounds. Abdominal: Palpations: Abdomen is soft. Comments: Soft No rebound Musculoskeletal: General: Normal range of motion. Cervical back: Normal range of motion. Comments: Normal gait No tenderness on lateral hip, good ROM Negative straight leg test Skin: General: Skin is warm. Neurological: General: No focal deficit present. Mental Status: She is alert and oriented to person, place, and time. Mental status is at baseline. Psychiatric: Mood and Affect: Mood normal. Behavior: Behavior normal. Thought Content: Thought content normal. Judgment: Judgment normal. Signed Electronically by: Jackelyn Metcalf MD 'S ENGINEER documented in this encounter Plan of Treatment Upcoming Encounters Date Type Department Care Team (Late st Contact Info) Description 05/10/2024 3:00 PM SHIP'S ENGINEER Office Visit [facility] [address] [place] [address] [place] [id number] [place] [address] Scheduled Orders Name Type Priority Associated Diagnoses Orde r Schedule CBC with platelets and differential Lab Panel Routine Acute left-sided low back pain with left-sided sciatica Expected: 2024 (Approximate), Expires: 2025 Comprehensive metabolic panel (BMP + Alb, Alk Phos, ALT, AST, Total. Bili, TP) Lab Routine Acute left-sided low back pain with left-sided sciatica Expected: 2024 (Approximate), Expires: 2025 ESR: Erythrocyte sedimentation rate Lab Routine Acute left-sided low back pain with left-sided sciatica Expected: 2024 (Approximate), Expires: 2025 CRP, inflammation Lab Routine Acute left-sided low back pain with left-sided sciatica Expected: 2024 (Approximate), Expires: 2025 documented as of this encounter Visit Diagnoses Diagnosis Acute left-sided low back pain with left-sided sciatica documented in this encounter Care Teams Office Administration Instructor Relationship Specialty Start [place] [address] [place] [address] PCP - General Internal Medicine 11/21/23 Maria Garcia NP [address] [place] [address]165 Nurse Practitioner 09/28/22 Rachana Collins AuD [address] [place] [address] 183325 Pinion And Wheel Truer Audiology 09/28/22 Sonja Lemon MD [address] [place] [address] keyliner 07/26/23 Anitra Albarran MD [address] [place] [address] keyliner 09/26/23 [place] [address] [address] Assigned PCP 12/28/23 Maxi Massey MD [address] [place], [place] 90[address]87 keyliner 02/15/24 Olga Lui APRN CNP [address] [address] Assigned OBGYN Provider 03/29/24 documented as of this encounter
--- OUTSIDE RECORDS SUMMARY | 2024-05-04 09:10 | XMS_ITS | Encounter Summary ---
Author Organization [place] Address [address] [place] [address] Care Team Providers Care Sod Farmer Name Role Phone Maria Garcia PLASTIC BOAT BUFFER Unavailable [phone] Rachana Collins AuD Unavailable [phone] Sonja Lemon MD Unavailable [phone] Anitra Albarran MD Unavailable [phone] Jackelyn Metcalf MD Primary Care Provider [phone] Jackelyn Metcalf MD Unavailable Maxi Massey MD Unavailable [phone] Olga Lui APRN [facility] Unavailable [phone] Encounter Details Date Type Department Care Team (Late st Contact Info) Description 04/20/2024 11:15 AM [facility] [address] [place] [address] UTI symptoms Social History Tobacco Use Types Packs/Day Years [...] in an abandoned building, in an overnight residential, or couch-surfing.) Patient refused 01/31/2023 Are you [...] on file Legal Sex Female 6:22 AM SPLINE ROLLING MACHINE JOB SETTER Gender Identity Not on file Sexual Orientation Not on file documented as of this encounter Plan of Treatment Upcoming Encounters Date Type Department Care Team (Late st Contact Info) Description 05/10/2024 3:00 PM SPLINE ROLLING MACHINE JOB SETTER Office Visit [facility] [address] [place] [address] [place] [address] [place] [address] documented as of this encounter Procedures Procedure Name Priority Date/Time Associated Diagnosis Comments UA MICROSCOPIC WITH REFLEX TO CULTURE Routine 04/20/2024 12:17 PM SPLINE ROLLING MACHINE JOB SETTER UTI symptoms UA MACROSCOPIC WITH REFLEX TO MICRO AND CULTURE Routine 04/20/2024 12:17 PM SPLINE ROLLING MACHINE JOB SETTER UTI symptoms documented in this encounter Results * (ABNORMAL) UA Microscopic with Reflex to Culture (04/20/2024 12:17 PM SPLINE ROLLING MACHINE JOB SETTER) Bacteria Urine Few(A) None Seen /HPF KAVYA 04/20/2024 12:31 PM SPLINE ROLLING MACHINE JOB SETTER LABORATORY RBC Urine 0-2 0-2 /HPF /HPF KAVYA 04/20/2024 12:31 PM SPLINE ROLLING MACHINE JOB SETTER RM LABORATORY WBC Urine 0-5 0-5 /HPF /HPF KAVYA 04/20/2024 12:31 PM SPLINE ROLLING MACHINE JOB SETTER LABORATORY Squamous Epithelials Urine Few(A) None Seen /LPF KAVYA 04/20/2024 12:31 PM SPLINE ROLLING MACHINE JOB SETTER LABORATORY Urine URINE SPECIMEN / Unknown Non-blood Collection / Unknown 04/20/2024 12:17 PM SPLINE ROLLING MACHINE JOB SETTER 04/20/2024 12:17 PM SPLINE ROLLING MACHINE JOB SETTER Narrative LABORATORY - 04/20/2024 12:31 PM SPLINE ROLLING MACHINE JOB SETTER Urine Culture not indicated us Merle Dasilva PREMISES TECHNICIAN LEAD FURNACE OPERATOR LAB - URINE ORDER MARÍA Final Result LABORATORY [facility] [place] [facility] [address] [facility] (no room number, 1st floor of clinic) [place] [address], [facility] * (ABNORMAL) UA Macroscopic with reflex to Microscopic and Culture - Lab Collect (04/20/2024 12:17 PMCST) Color Urine Yellow Colorless, Straw, Light Yellow, Yellow 04/20/2024 12:24 PM SPLINE ROLLING MACHINE JOB SETTER LABORATORY Appearance Urine Clear Clear 04/20/19 12:24 PM SPLINE ROLLING MACHINE JOB SETTER LABORATORY Glucose Urine Negative Negative mg/dL 04/20/2024 12:24 PM SPLINE ROLLING MACHINE JOB SETTER LABORATORY Bilirubin Urine Negative Negative 12:24 PM SPLINE ROLLING MACHINE JOB SETTER LABORATORY Ketones Urine Negative Negative mg/dL 04/20/2024 12:24 PM SPLINE ROLLING MACHINE JOB SETTER LABORATORY Specific [place] Urine 1.020 1.003 - 1.035 04/20/2024 12:24 PM SPLINE ROLLING MACHINE JOB SETTER LABORATORY Blood Urine Trace(A) Negative 04/20/2024 12:24 PM SPLINE ROLLING MACHINE JOB SETTER LABORATORY pH Urine 6.0 5.0 - 7.0 04/20/2024 12:24 PM SPLINE ROLLING MACHINE JOB SETTER LABORATORY Protein Albumin Urine Negative Negative mg/dL 04/20/2024 12:24 PM SPLINE ROLLING MACHINE JOB SETTER LABORATORY Urobilinogen Urine 0.2 0.2, 1.0 E.U./dL 04/20/2024 12:24 PM SPLINE ROLLING MACHINE JOB SETTER LABORATORY Nitrite Urine Negative Negative 04/20/2024 12:24 PM SPLINE ROLLING MACHINE JOB SETTER LABORATORY Leukocyte Esterase Urine Negative Negative 04/20/2024 12:24 PM SPLINE ROLLING MACHINE JOB SETTER LABORATORY Urine URINE SPECIMEN / Unknown Non-blood Collection / Unknown 04/20/2024 12:17 PM SPLINE ROLLING MACHINE JOB SETTER 04/20/2024 12:17 PM SPLINE ROLLING MACHINE JOB SETTER us Merle Dasilva PREMISES TECHNICIAN LEAD FURNACE OPERATOR LAB - URINE ORDER MARÍA Final Result LABORATORY [facility] [place] [facility] [address] [facility] (no room number, 1st floor of clinic) [place] [address] documented in this encounter Visit Diagnoses Diagnosis UTI symptoms documented in this encounter Care Teams Sod Farmer Relationship Specialty Start [place] [address] [place], [place] [phone] PCP - General Internal Medicine 11/21/23 Maria Garcia NP [address] [place] [address] [id number] Nurse Practitioner 09/28/22 Rachana Collins AuD [address] [place] [address] Project Internship Audiology 09/28/22 Sonja Lemon MD [address] [place], [place] 3697[address] ice seller 07/26/23 Anitra Albarran MD [address] [place] [address] ice seller 09/26/23 [place] [address] [place] [address] Assigned PCP 12/28/23 Maxi Massey MD [address] [place] [address] ice seller 02/15/24 Olga Lui APRN LEAD FURNACE OPERATOR [address] [address] Assigned OBGYN Provider 03/29/24 documented as of this encounter
--- OUTSIDE RECORDS SUMMARY | 2024-05-04 09:10 | XMS_ITS | Encounter Summary ---
Author Organization [place] Address [address] [place] [address] Care Team Providers Care Time Lock Expert Name Role Phone Maria Garcia APPLICATIONS ENGINEER MANUFACTURING Unavailable [phone] Rachana Collins AuD Unavailable [phone] Sonja Lemon MD Unavailable [phone] Anitra Albarran MD Unavailable [phone] Jackelyn Metcalf MD Primary Care Provider [phone] Jackelyn Metcalf MD Unavailable Maxi Massey MD Unavailable [phone] Olga Lui APRN [facility] Unavailable [phone] Encounter Details Date Type Department Care Team (Latest Contact Info) Description 04/18/2024 Travel Social History Tobacco Use Types Packs/Day [...] in an abandoned building, in an overnight detention, or couch-surfing.) Patient refused 01/31/2023 Are you [...] on file Legal Sex Female 6:22 AM LEVERS LACE MACHINE OPERATOR Gender Identity Not on file Sexual Orientation Not on file documented as of this encounter Plan of Treatment Upcoming Encounters Date Type Department Care Team (Late st Contact Info) Description 05/10/2024 3:00 PM LEVERS LACE MACHINE OPERATOR [facility] [address] [facility] [place] [phone] [place] [address] [address] [id number] documented as of this encounter Visit Diagnoses Not on filedocumented in this encounter Care Teams Time Lock Expert Relationship Specialty Start [place] [address] [address] [id number] PCP - General Internal Medicine 11/21/23 Maria Garcia NP 909 [place], [place] 4420[address] Nurse Practitioner 09/28/22 Rachana Collins AuD 909 [place], [place] 225[address] Design Draftsman Audiology 09/28/22 Sonja Lemon MD [address] [place] [place], [place] 0[address] automatic i threading machine feeder 07/26/23 Anitra Albarran MD [address] [place], [place] [address] automatic i threading machine feeder 09/26/23 [place] [address] [place] [address] Assigned PCP 12/28/23 Maxi Massey MD [address] [place] [address] automatic i threading machine feeder 02/15/24 Olga Lui APRN RECORDS OFFICER [address] [address] Assigned OBGYN Provider 03/29/24 documented as of this encounter
--- OUTSIDE RECORDS SUMMARY | 2024-05-04 09:10 | XMS_ITS | Encounter Summary ---
Author Organization [place] Address [address] [place] [address] Care Team Providers Care Laundry Manager Name Role Phone Maria Garcia NP Unavailable [phone] Rachana Collins Unavailable [phone] Sonja Lemon MD Unavailable [phone] Anitra Albarran MD Unavailable [phone] Jackelyn Metcalf MD Primary Care Provider [phone] Jackelyn Metcalf MD Unavailable Maxi Massey MD Unavailable [phone] Encounter Details Date Type Department Care Team (Late st Contact Info) Description 03/28/2024 2:15 PM LEGAL RESEARCH ANALYST Lab [facility] [address] [place] [address] Abdominal pain, left lower quadrant Social History Tobacco Use Types Packs/Day Years [...] on file Legal Sex Female 6:22 AM LEGAL RESEARCH ANALYST Gender Identity Not on file Sexual Orientation Not on file documented as of this encounter Plan of Treatment Upcoming Encounters Date Type Department Care Team (Late st Contact Info) Description 05/10/2024 3:00 PM LEGAL RESEARCH ANALYST Office Visit [facility] [address] [place] [address] [place] [address] [place] [address] documented as of this encounter Procedures Procedure Name Priority Date/Time Associated Diagnosis Comments MULTIPLEX VAGINAL PANEL BY PCR Routine 03/28/2024 1:56 PM LEGAL RESEARCH ANALYST Abdominal pain, left lower quadrant documented in this encounter Results * Multiplex Vaginal Panel by PCR (03/28/2024 1:56 PM LEGAL RESEARCH ANALYST) Bacterial Vaginosis Organism DNA Negative Negative 03/28/2024 8:57 PM LEGAL RESEARCH ANALYST [facility] Comment: Indicator DNA target(s) related to bacterial vaginosis organisms is/are not detected. Organisms associated with bacterial vaginosis that are targeted in this assay include Atopobium spp., Bacterial Vaginosis-Associated Bacterium-2, and Megasphaera-1. Detected organisms are not reported individually. Rita Group DNA Not Detected Not Detected 03/28/2024 8:57 PM LEGAL RESEARCH ANALYST [facility] Comment:Rita group specie s detected by this target include C. albicans, C. tropicalis, C. parapsilosis, C. dubliniensis. Rita glabrata / Rita krusei DNA Not Detected Not Detected 03/28/2024 8:57 PM LEGAL RESEARCH ANALYST [facility] Trichomonas vaginalis DNA Not Detected Not Detected 03/28/2024 8:57 PM LEGAL RESEARCH ANALYST [facility] Swab VAGINAL STRUCTURE / Unknown Non-blood Collection / Unknown 03/28/2024 1:56 PM LEGAL RESEARCH ANALYST 03/28/2024 1:56 PM LEGAL RESEARCH ANALYST Narrative [facility] - 03/28/2024 8:57 PM LEGAL RESEARCH ANALYST The Xpert Xpress MVP test, performed on the [employer]ni[employer] Instrument Systems, is an automated, qualitative in vitro [...] patient information to determine the disease status. Jackelyn Metcalf MD LAB - MICRO GENERAL ORDERABLES F inal Result [facility] Inf. Diseases Diag. Lab [address] [facility], Room [address] [place] [address] documented in this encounter Visit Diagnoses Diagnosis Abdominal pain, left lower quadrant documented in this encounter Care Teams Laundry Manager Relationship Specialty [place] [address] [address] [id number] PCP - General Internal Medicine 11/21/23 Maria Garcia NP [address] [place] [address] 883025 Nurse Practitioner 09/28/22 Rachana Collins AuD [address] [place] [address] Transportation Project Manager Audiology 09/28/22 Sonja Lemon MD [address] [place] 253777 parts casting machine operator 07/26/23 Anitra Albarran MD [address] [place] [address] parts casting machine operator 09/26/23 [place] [address] [address] [place] [address] Assigned PCP 12/28/23 Maxi Massey MD [address] [place] [address] parts casting machine operator 02/15/24 documented as of this encounter
--- OUTSIDE RECORDS SUMMARY | 2024-05-04 09:10 | XMS_ITS | Encounter Summary ---
Author Organization [place] Address [address] [place] [address] Care Team Providers Care Turnaround Planner Name Role Phone Maria Garcia NP Unavailable [phone] Rachana Collins Unavailable [phone] Olga Lui APRN MEDIA AID Unavailable [phone] Samaria Cash PA-C Unavailable Samaria Cash PA-C Primary Care Provider [phone] Sonja Lemon MD Unavailable [phone] Anitra Albarran MD Unavailable Jackelyn Metcalf MD Primary Care Provider [phone] Jackelyn Metcalf MD Unavailable Solange Castellon PA-C Unavailable [phone] Maxi Massey MD Unavailable [phone] Olga Lui APRN MEDIA AID Unavailable [phone] Encounter Details Date Type Department Care Team (Late st Contact Info) Description 05/23/2023 [facility] [address] [place] [address] 700 [place] [address] Olga Lui APRN MEDIA AID [address] [place] [address] 700 [place], [place] 493384 Social History Tobacco Use Types Packs/Day Years [...] on file Legal Sex Female 6:22 AM CANDY POLISHER Gender Identity Not on file Sexual Orientation Not on file documented as of this encounter Plan of Treatment Upcoming Encounters Date Type Department Care Team (Late st Contact Info) Description 05/10/2024 3:00 PM CANDY POLISHER Office Visit [facility] [address] [place] [phone] [place] [address] [place] [id number] documented as of this encounter Visit Diagnoses Not on filedocumented in this encounter Care Teams Turnaround Planner Relationship Specialty Start Date End Date Samaria Cash PA-C [address] [place] 024045 PCP - General Family Medicine 03/10/23 11/14/23 [place] [address] [address] [place] [id number] PCP - General Internal Medicine 11/21/23 Maria Garcia NP [address] [place], [place] 976095 Nurse Practitioner 09/28/22 Rachana Collins AuD 9 [place], [place] 474145 Acrobatic Dancer Audiology 09/28/22 Olga Lui APRN CNP [address] [place], [place] [address] Assigned OBGYN Provider 12/25/2202/25 Samaria Cash PA-C [address] [place] [address] Assigned PCP 02/26/23 12/27/23 Sonja Lemon MD [address] [place] [address] emergency medical service coordinator 07/26/23 Anitra Albarran MD [address] [place] [address] emergency medical service coordinator 09/26/23 [place] [address] [address] [facility] [address] Assigned PCP 12/28/23 Solange Castellon PA-C [address] [facility] [place] [address] Physician Petroleum Products Sales Representative emergency medical service coordinator 02/15/24 02/15/24 Maxi Massey MD [address] [place], [place] 776327 emergency medical service coordinator 02/15/24 Olga Lui APRN CNP [address] 803644 Assigned OBGYN Provider 03/29/24 documented as of this encounter
--- OUTSIDE RECORDS SUMMARY | 2024-05-04 09:10 | XMS_ITS | Encounter Summary ---
Author Organization [place] Address [facility] [place] [address] Care Team Providers Care Cardroom Hand Name Role Phone Maria Garcia UTILITY HELICOPTER REPAIRER Unavailable [phone] Rachana Collins Unavailable [phone] Sonja Lemon MD Unavailable [phone] Anitra Albarran MD Unavailable [phone] Jackelyn Metcalf MD Primary Care Provider [phone] Jackelyn Metcalf MD Unavailable Maxi Massey MD Unavailable Olga Lui APRN ARTIFICIAL BREEDING DISTRIBUTOR Unavailable Encounter Details Date Type Department Care Team (Late st Contact Info) Description 04/18/2024 Orders Only [facility] [address] [place] [address] Juju Cordero APRN ARTIFICIAL BREEDING DISTRIBUTOR [address] [place] [address] Bacterial vaginosis (Primary Dx) Social History Tobacco Use Types [...] in an abandoned building, in an overnight fdc, or couch-surfing.) Patient refused 01/31/2023 Are you [...] on file Legal Sex Female 6:22 AM GROUT WORKER Gender Identity Not on file Sexual Orientation Not on file documented as of this encounter Plan of Treatment Upcoming Encounters Date Type Department Care Team (Late st Contact Info) Description 05/10/2024 3:00 PM GROUT WORKER Office Visit [facility] [address] [place] [phone] [place] [address] [place] [address] documented as of this encounter Visit Diagnoses Diagnosis Bacterial vaginosis- Primary Vaginitis and vulvovaginitis, unspecified documented in this encounter Care Teams Cardroom Hand Relationship Specialty [place] [address] [address] [place], [place] 7718168 PCP - General Internal Medicine 11/21/23 Maria Garcia NP 909 [place], [place] 709955 Nurse Practitioner 09/28/22 Rachana Collins AuD [address] [place], [place] 801685 Backup Administrator Audiology 09/28/22 Sonja Lemon MD [address] [place] [address] dump grounds checker 07/26/23 Anitra Albarran MD [address] [place] [address] dump grounds checker 09/26/23 [place] [address] [address] [facility] [place] [address] Assigned PCP 12/28/23 Maxi Massey MD [address] [place] [address] dump grounds checker 02/15/24 Olga Lui APRN ARTIFICIAL BREEDING DISTRIBUTOR [address] [place] [address] Assigned OBGYN Provider 03/29/24 documented as of this encounter
--- OUTSIDE RECORDS SUMMARY | 2024-05-04 09:10 | XMS_ITS | Encounter Summary ---
Author Organization [place] Address [address] [place] [address]. [place] [address] Care Team Providers Care Cath Lab Manager Name Role Phone Maria Garcia REGIONAL CONTROLLER Unavailable [phone] Karina, Rachanadov Hannon Unavailable [phone] Sojna Lemon MD Unavailable [phone] Anitra Albarran MD Unavailable [phone] Jackelyn Metcalf MD Primary Care Provider [phone] Jackelyn Metcalf MD Unavailable Maxi Massey MD Unavailable [phone] Olga Lui APRN PROCESS ANALYST Unavailable Reason for Visit * Reason Comments UTI Entered automaticall y based on patient selection in [employer]. Encounter Details Date Type Department Care Team (Late st Contact Info) Description 04/20/2024 9:30 AM HELP AID E-Visit [facility] [address] [place] [address] Merle Dasilva APRN PROCESS ANALYST [address] [place] [address] UTI (Entered automatically based on patien... Social History Tobacco Use Types Packs/Day Years [...] in an abandoned building, in an overnight jail, or couch-surfing.) Patient refused 01/31/2023 Are you [...] on file Legal Sex Female 6:22 AM HELP AID Gender Identity Not on file Sexual Orientation Not on file documented as of this encounter Miscellaneous Notes * Telephone Encounter - Merle Dasilva, JAKI PROCESS ANALYST - 04/20/2024 10:24 AM CST Provider E-Visit time total (minutes): 5 minutes AID documented in this encounter Plan of Treatment Upcoming Encounters Date Type Department Care Team (Late st Contact Info) Description 05/10/2024 3:00 PM HELP AID [facility] [address] [place] [phone] [place] [address] [place] [address] documented as of this encounter Results * (ABNORMAL) UA Macroscopic with reflex to Microscopic and Culture - Lab Collect (04/20/2024 12:17 PMCST) Color Urine Yellow Colorless, Straw, Light Yellow, Yellow 04/20/2024 12:24 PM [facility] Appearance Urine Clear Clear 04/20/19 25 12:24 PM [facility] Glucose Urine Negative Negative mg/dL 04/20/2024 12:24 PM [facility] Bilirubin Urine Negative Negative 12:24 PM [facility] Ketones Urine Negative Negative mg/dL 04/20/2024 12:24 PM [facility] Specific [place] Urine 1.020 1.003 - 1.035 04/20/2024 12:24 PM [facility] Blood Urine Trace(A) Negative 04/20/2024 12:24 PM [facility] pH Urine 6.0 5.0 - 7.0 04/20/2024 12:24 PM [facility] Protein Albumin Urine Negative Negative mg/dL 04/20/2024 12:24 PM [facility] Urobilinogen Urine 0.2 0.2, 1.0 E.U./dL 04/20/2024 12:24 PM [facility] Nitrite Urine Negative Negative 04/20/2024 12:24 PM [facility] Leukocyte Esterase Urine Negative Negative 04/20/2024 12:24 PM [facility] Urine URINE SPECIMEN / Unknown Non-blood Collection / Unknown 04/20/2024 12:17 PM HELP AID 04/20/2024 12:17 PM HELP AID us Merle Dasilva IT ADMIN PROCESS ANALYST LAB - URINE ORDER MARÍA Final Result LABORATORY [facility] [place] [facility] [address] [facility] (no room number, 1st floor of clinic) [place] [address], [facility] documented in this encounter Visit Diagnoses Diagnosis UTI symptoms- Primary documented in this encounter Care Teams Cath Lab Manager Relationship Specialty [place] [address] [address] [place] 1488[address] PCP - General Internal Medicine 11/21/23 Maria Garcia NP 909 [place], [place] 314655 Nurse Practitioner 09/28/22 Rachana Collins AuD 9 [place], [place] 262445 Professor Of Business Audiology 09/28/22 Sonja Lemon MD [address] [place], [place] 141907 7th grade teacher 07/26/23 Anitra Albarran MD [address] [place], [place] 4[address]77 7th grade teacher 09/26/23 [place] [address] [place] [address] Assigned PCP 12/28/23 Maxi Massey MD [address] [place] [address] 7th grade teacher 02/15/24 Olga Lui APRN PROCESS ANALYST [address] [address] Assigned OBGYN Provider 03/29/24 documented as of this encounter
--- OUTSIDE RECORDS SUMMARY | 2024-05-04 09:10 | XMS_ITS | Encounter Summary ---
Author Organization [place] Address [address] [place] [address] Care Team Providers Care Supervisor Electrolytic Tinning Name Role Phone Maria Garcia PEOPLESOFT FINANCIALS CONSULTANT Unavailable [phone] Beckett RidgeRachana egan AuD Unavailable [phone] Sonja Lemon MD Unavailable [phone] Anitra Albarran MD Unavailable [phone] Jackelyn Metcalf MD Primary Care Provider [phone] Jackelyn Metcalf MD Unavailable Maxi Massey MD Unavailable [phone] Olga Lui APRN [facility] Unavailable [phone] Encounter Details Date Type Department Care Team (Latest Contact Info) Description 04/24/2024 Travel Social History Tobacco Use Types Packs/Day [...] in an abandoned building, in an overnight fci, or couch-surfing.) Patient refused 01/31/2023 Are you [...] on file Legal Sex Female 6:22 AM [facility] Gender Identity Not on file Sexual Orientation Not on file documented as of this encounter Plan of Treatment Upcoming Encounters Date Type Department Care Team (Late st Contact Info) Description 05/10/2024 3:00 PM [facility] [address] [facility] [phone] [place] [address] [address] [id number] documented as of this encounter Visit Diagnoses Not on filedocumented in this encounter Care Teams Supervisor Electrolytic Tinning Relationship Specialty [place] [address] [address] [id number] PCP - General Internal Medicine 11/21/23 Maria Garcia NP 909 [place], [place] 342205 Nurse Practitioner 09/28/22 Rachana Collins AuD 909 [place], [place] 363575 Environmental Programs Manager Audiology 09/28/22 Sonja Lemon MD [address] [place], [place] 932[address] irrigating pump operator 07/26/23 Anitra Albarran MD [address] [place], [place] 55[address] irrigating pump operator 09/26/23 [place] [address] [place] [address] Assigned PCP 12/28/23 Maxi Massey MD [address] [place] [address] irrigating pump operator 02/15/24 Olga Lui APRN SLIME PLANT OPERATOR HELPER [address] [address] Assigned OBGYN Provider 03/29/24 documented as of this encounter
--- OUTSIDE RECORDS SUMMARY | 2024-05-04 09:10 | XMS_ITS | Encounter Summary ---
Author Organization [place] Address [address] [place] [address] Care Team Providers Care Oxygen Equipment Aide Name Role Phone Maria Garcia BUSINESS COORDINATOR Unavailable [phone] RailroadRachana egan AuD Unavailable [phone] Sonja Lemon MD Unavailable [phone] Anitra Albarran MD Unavailable [phone] Jackelyn Metcalf MD Primary Care Provider [phone] Jackelyn Metcalf MD Unavailable Maxi Massey MD Unavailable [phone] Olga Lui APRN [facility] Unavailable [phone] Encounter Details Date Type Department Care Team (Latest Contact Info) Description 04/12/2024 Travel Social History Tobacco Use Types Packs/Day [...] on file Legal Sex Female 6:22 AM RN SURGICAL PCU Gender Identity Not on file Sexual Orientation Not on file documented as of this encounter Plan of Treatment Upcoming Encounters Date Type Department Care Team (Late st Contact Info) Description 05/10/2024 3:00 PM RN SURGICAL PCU Office [facility] [address] [facility] [phone] [place] [address] [address] [id number] documented as of this encounter Visit Diagnoses Not on filedocumented in this encounter Care Teams Oxygen Equipment Aide Relationship Specialty [place] [address] [address] [phone] PCP - General Internal Medicine 11/21/23 Maria Garcia NP 909 [place], [place] 4697[address] Nurse Practitioner 09/28/22 Rachana Collins AuD 9[address] [place], [place] 481545 Processing Spec Audiology 09/28/22 Sonja Lemon MD [address] [place], [place] [address] ultrasonic hand solderer 07/26/23 Anitra Albarran MD [address] [place], [place] [address] ultrasonic hand solderer 09/26/23 [place] [address] [place] [address] Assigned PCP 12/28/23 Maxi Massey MD [address] [place] [address] ultrasonic hand solderer 02/15/24 Olga Lui APRN ICE RINK ATTENDANT [address] [address] Assigned OBGYN Provider 03/29/24 documented as of this encounter
--- OUTSIDE RECORDS SUMMARY | 2024-05-04 09:10 | XMS_ITS | Encounter Summary ---
Author Organization [place] Address [facility] [place] [address] Care Team Providers Care Volunteer Assistant Name Role Phone Maria Garcia BIOMEDICAL REPAIR TECHNICIAN Unavailable [phone] Karina, Rachana E AuD Unavailable [phone] Sonja Lemon MD Unavailable [phone] Anitra Albarran MD Unavailable [phone] Jackelyn Metcalf MD Primary Care Provider Jackelyn Metcalf MD Unavailable Maxi Massey MD Unavailable [phone] Olga Lui APRN [facility] Unavailable Encounter Details Date Type Department Care Team (Late st Contact Info) Description 05/02/2024 Telephone [facility] [address] [place] [address] [place] [address] [place] [address] Social History Tobacco Use Types Packs/Day Years [...] on file Legal Sex Female 6:22 AM CUSTOMER SERVICE REPRESENTATIVE TEACHER Gender Identity Not on file Sexual Orientation Not on file documented as of this encounter Miscellaneous Notes * Telephone Encounter - Jackelyn Metcalf MD - 05/02/2024 4:11 PM CST Acute left lower back pain with shooting pain Denies GI/ OMER SERVICE REPRESENTATIVE TEACHER documented in this encounter Plan of Treatment Upcoming Encounters Date Type Department Care Team (Late st Contact Info) Description 05/10/2024 3:00 PM CUSTOMER SERVICE REPRESENTATIVE TEACHER [facility] [address] [place] [phone] [place] [address] [place] [id number] documented as of this encounter Visit Diagnoses Diagnosis Acute left-sided low back pain with left-sided sciatica- Primary documented in this encounter Care Teams Volunteer Assistant Relationship Specialty Start [place] [address] [address] [place] [phone] PCP - General Internal Medicine 11/21/23 Maria Garcia NP 909 [place], [place] 285385 Nurse Practitioner 09/28/22 Rachana Collins AuD 909 [place], [place] [address] Kaiako Kura [place] Audiology 09/28/22 Sonja Lemon MD [address] [place] [address] staff accountant 07/26/23 Anitra Albarran MD [address] [place] [address] staff accountant 09/26/23 [place] [address] [place] [address] Assigned PCP 12/28/23 Maxi Massey MD [address] [place] [address] staff accountant 02/15/24 Olga Lui APRN CNP [address] [facility] [address] [place] [address] Assigned OBGYN Provider 03/29/24 documented as of this encounter
--- OUTSIDE RECORDS SUMMARY | 2024-05-04 09:10 | XMS_ITS | Clinical Summary ---
Author Organization [facility] Address [address] [place] [address] Care Team Providers Care Concrete Block Maker Name Role Phone Doreen Degroot MD Primary Care Provider Allergies Active Allergy Reactions Criticality Noted Date Comments Adhesive Tape-Silicones Rash 08/09/2023 Codeine GI Upset 01/13/2010 Latex Itching 09/27/2022 Medications FLUoxetine (SARAFEM) 20 mg tablet Take 20 mg by mouth every morning. Active Omeprazole 20 mg tablet Take 20 mg by mouth once daily. Active traZODone (DESYREL) 50 mg tablet Take 50 mg by mouth at bedtime. Active ofloxacin (FLOXIN) 0.3 % otic solutionIndicat ions:Otorrhea of left ear Place 5 Drops into left ear two times daily. 5 mL 04/06/2023 Active albuterol HFA (PRO-AIR; VENTOLIN; PROVENTIL) 90 mcg/actuation inhaler Inhale 1-2 Puffs by mouth. 09/01/2022 Active SUMAtriptan (IMITREX) 50 mg tablet Take 50 mg by mouth. 02/22/2023 Active dexAMETHasone 0.5 mg/5 mL (DECADRON) 0.5 mg/5 mL oral elixirIndicatio ns:Thrush Use 5-10mL to rinse your mouth for 10 mins and spit. Do this twice daily for one week. Do not drink or eat for 30 mins afterwards. Do not swallow the medication. 100 mL 2 08/09/2023 Active fluconazole (DIFLUCAN) 200 mg tabletIndicatio ns:Thrush TAKE ONE TABLET BY MOUTH ONCE DAILY FOR 3 DAYS 3 Tablet 08/16/2023 Active ciprofloxacin-d exAMETHasone (CIPRODEX) otic suspensionIndic ations:Otorrhea of left ear Place 4 Drops into left ear two times daily. 7.5 mL 05/02/2024 Active Encounters Date Type Department Care Team Description 05/01/2024 Telephone [facility] [address] [place] [address] Rob Melgoza MD Ear Pain/problem (FOLLOW UP) from Last 3 Months Social History Tobacco Use Types Packs/Day Years Used Date Smoking Tobacco: Former Cigarettes Q uit: 03/07/2016 Passive Smoke Exposure: Past Smokeless Tobacco: Never Tobacco Cessation:Counseling Given: Not Answered Comments:Only when having alcohol Alcohol Use Standard Drinks/Week Comments Yes 0 (1 standard drink = 0.6 oz pur e alcohol) social use Social Connections Answer Date Recorded Frequency of Communication with Friends and Fami ly Not on file 11/19/2022 Financial Resource Strain Answer Date R ecorded Difficulty of Paying Living Expenses Not on file 03/07/2021 Difficulty of Paying Living Expenses Not on file 03/07/2021 Comments No Sex and Gender Information Value Date Recorded Sex Assigned at Not on file Legal Sex Female 8:00 AM ADVANCED MANUFACTURING VICE PRESIDENT Gender Identity Not on file Sexual Orientation Not on file Obstetrics History Last Filed Vital Signs Vital Sign Reading Time Taken Comments Blood Pressure 110/70 03/21/2020 1:01 PM ADVANCED MANUFACTURING VICE PRESIDENT Pulse 79 07/18/2018 11:48 AM CDT Temperature 36.6 C (97.9 F) 07/18/2018 11:48 AM CDT Respiratory Rate 16 07/18/2018 11:4 8 AM CDT Oxygen Saturation 100% 07/18/2018 11: 48 AM CDT Inhaled Oxygen Concentration - - Weight 63.5 kg (139 lb 14.4 oz) 021 10:04 AM CDT Height 163.2 cm (5' 4.25) 10/17/2020 1 0:04 AM CDT Body Mass Index 23.83 10/17/2020 10:04 AM CDT Plan of Treatment Health Maintenance Due Date Last Done Comments Tdap 1981 Depression screening for age 12+ 1982 HIV for age 15-65 1985 Hepatitis C screening for age 18-79 1988 Tetanus booster 1990 Pap test for age 21-65 1991 Colonoscopy through age 75 2015 Lipids for age 45-75 2015 Mammogram for age 45-75 2015 Pneumococcal series for age 50+ (1 of 1 - PCV) 2020 Zoster (shingles) series for age 50+ (1 of 2) 2020 BMI (ht and wt on same day) for age 18+ 10/17/2021 10/17/2020, 03/21/2020, 07/22/2016 COVID-19 vaccine series ( season) 2023 02/13/2021, 05/08/2020, 04/17/2020 Influenza for age 50-64 11/06/2023 Insurance [facility] Advance Directives * Full Code (Latest Code Status on File) Date Activated Date Inactivated Comments 07/26/2016 9:02 AM 07/26/2016 4:28 PM Care Teams Concrete Block Maker Relationship Specialty Start Date End Date Doreen Degroot MD [facility] - General 01/13/10
--- OUTSIDE RECORDS SUMMARY | 2024-05-04 09:11 | XMS_ITS | Encounter Summary ---
Author Organization [facility] Address [address] [place] [address] Care Team Providers Care Blood Bank Laboratory Technician Name Role Phone No Ref-Primary, Physician Primary Care Provider Maria Garcia NP Unavailable [phone] Rachana Collins Unavailable [phone] Katie Daley HOUSE COORDINATOR STAFFING PROGRAM MANAGER Unavailable Un available Olga Lui APRN STAFFING PROGRAM MANAGER Unavailable [phone] Samaria Cash PA-C Unavailable [phone] Samaria Cash PA-C Primary Care Provider [phone] Sonja Lemon MD Unavailable [phone] Anitra Albarran MD Unavailable [phone] Jackelyn Metcalf MD Primary Care Provider [phone] Jackelyn Metcalf MD Unavailable Solange Castellon PA-C Unavailable [phone] Maxi Massey MD Unavailable [phone] Olga Lui APRN STAFFING PROGRAM MANAGER Unavailable [phone] Encounter Details Date Type Department Care Team (Late st Contact Info) Description 12/24/2022 [facility] [place] [place] Medical Advice [address] [address] Klaudia Jackson, RN Social History Tobacco Use Types Packs/Day Years Used Date Smoking Tobacco: Never Smokeless Tobacco: Never Alcohol Use Standard Drinks/Week Comments Yes 0 (1 standard drink = 0.6 oz pur e alcohol) PHQ-2 Answer Date Recorded PHQ-2 Score 0 09/27/2022 Adolescent Education Answer Date Record ed Getting School Help Needed Not on file 11/27 Comments No Sex and Gender Information Value Date Recorded Sex Assigned at Not on file Legal Sex Female 6:22 AM VALIDATION ENGINEER Gender Identity Not on file Sexual Orientation Not on file documented as of this encounter Plan of Treatment Upcoming Encounters Date Type Department Care Team (Late st Contact Info) Description 05/10/2024 3:00 PM VALIDATION ENGINEER Office Visit [facility] [address] [place] [phone] [place] [address] [place], [place] [phone] documented as of this encounter Visit Diagnoses Not on filedocumented in this encounter Care Teams Blood Bank Laboratory Technician Relationship Specialty Start Date End Date No Ref-Primary, Physician PCP - General 04/17/20 03/09/23 Samaria Cash PA-C [address] [address]18[address] PCP - General Family Medicine 03/10/23 11/14/23 [place] [address] [place] [address] PCP - General Internal Medicine 11/21/23 Maria Garcia NP [address] [place] [address] 770165 Nurse Practitioner 09/28/22 Rachana Collins AuD [address] [place] [address] Retail Marketing Coordinator Audiology 09/28/22 Katie Daley APRN STAFFING PROGRAM MANAGER Assigned PCP 09/02/22 02/04/23 Olga Lui APRN STAFFING PROGRAM MANAGER [address] [place], [place] 833284 Assigned OBGYN Provider 12/25/2202/25 Samaria Cash PA-C [address] [facility] 200 [place], [place] 084205 Assigned PCP 02/26/23 12/27/23 Sonja Lemon MD [address] [place] [facility] [place] 495977 assistant chief engineer 07/26/23 Anitra Albarran MD [address] [facility] [facility] [place] 986497 assistant chief engineer 09/26/23 [place] [address] [place] [address] Assigned PCP 12/28/23 Solange Castellon PA-C [address] 354065 Physician Stock Puller assistant chief engineer 02/15/24 02/15/24 Maxi Massey MD [address] [place] 612977 assistant chief engineer 02/15/24 Olga uLi APRN STAFFING PROGRAM MANAGER [address] [address] Assigned OBGYN Provider 03/29/24 documented as of this encounter
--- OUTSIDE RECORDS SUMMARY | 2024-05-04 09:11 | XMS_ITS | Encounter Summary ---
Author Organization [facility] Address [address] [place] [address] Care Team Providers Care Transformer Molder Name Role Phone Maria Garcia NP Unavailable [phone] Rachana Collins Unavailable [phone] Olga Lui APRN INSTRUCTOR DECORATING Unavailable [phone] Samaria Cash PA-C Unavailable Samaria Cash PA-C Primary Care Provider [phone] Sonja Lemon MD Unavailable [phone] Anitra Albarran MD Unavailable [phone] Jackelyn Metcalf MD Primary Care Provider [phone] Jackelyn Metclaf MD Unavailable Solange Castellon PA-C Unavailable [phone] Maxi Massey MD Unavailable [phone] Olga Lui APRN INSTRUCTOR DECORATING Unavailable [phone] Encounter Details Date Type Department Care Team (Late st Contact Info) Description 06/14/2023 [facility] [address] [place] [address] 700 [place] [address] Olga Lui APRN INSTRUCTOR DECORATING [address] [place] [address] 700 [place], [place] 333954 Social History Tobacco Use Types Packs/Day Years [...] in an abandoned building, in an overnight halfway, or couch-surfing.) Patient refused 01/31/2023 Are you [...] on file Legal Sex Female 6:22 AM APPAREL EMBROIDERY DIGITIZER Gender Identity Not on file Sexual Orientation Not on file documented as of this encounter Plan of Treatment Upcoming Encounters Date Type Department Care Team (Late st Contact Info) Description 05/10/2024 3:00 PM APPAREL EMBROIDERY DIGITIZER Office Visit [facility] [address] [place] [phone] [place] [address] [place] 5902968 documented as of this encounter Visit Diagnoses Not on filedocumented in this encounter Care Teams Transformer Molder Relationship Specialty Start Date End Date Samaria Cash PA-C [address] [place] [address]3235 PCP - General Family Medicine 03/10/23 11/14/23 [place] [address] [place] 1143168 PCP - General Internal Medicine 11/21/23 Maria Garcia NP 909 [place], [place] 369095 Nurse Practitioner 09/28/22 Rachana Collins AuD 9 [place], [place] 639585 Program Aide Group Work Audiology 09/28/22 Olga Lui APRN CNP [address] [place], [place] [address] Assigned OBGYN Provider 12/25/2202/25 Samaria Cash PA-C [address] [place] 833835 Assigned PCP 02/26/23 12/27/23 Sonja Lemon MD [address] [place] [address] metal bonding crib attendant 07/26/23 Anitra Albarran MD [address] [place] [address] metal bonding crib attendant 09/26/23 [place] [address] [address] [facility] [address] Assigned PCP 12/28/23 Solange Castellon PA-C [address] [place] [address] Physician Fish Cleaner metal bonding crib attendant 02/15/24 02/15/24 Maxi Massey MD [address] [place], [place] 647[address] metal bonding crib attendant 02/15/24 Olga Lui APRN CNP [address] 918[address] Assigned OBGYN Provider 03/29/24 documented as of this encounter
--- OUTSIDE RECORDS SUMMARY | 2024-05-04 09:11 | XMS_ITS | Encounter Summary ---
Author Organization [facility] Address [address] [place] [address] Care Team Providers Care Slab Miller Operator Name Role Phone Maria Garcia NP Unavailable [phone] Rachana Collins Unavailable [phone] Olga Lui APRN PLANT ASSIGNER Unavailable [phone] Samaria Cash PA-C Unavailable [phone] Samaria Cash PA-C Primary Care Provider [phone] Sonja Lemon MD Unavailable [phone] Anitra Albarran MD Unavailable [phone] Jackelyn Metcalf MD Primary Care Provider [phone] Jackelyn Metcalf MD Unavailable Solange Castellon PA-C Unavailable [phone] Maxi Massey MD Unavailable [phone] Olga Lui APRN PLANT ASSIGNER Unavailable [phone] Encounter Details Date Type Department Care Team (Late st Contact Info) Description 06/16/2023 [facility] [address] [address] Ciara Marshall PA-C 500 [place] [address] Social History Tobacco Use Types Packs/Day Years [...] Answer Date Recorded Do you have housing? (Onesimoin g is defined as stable permanent housing [...] on file Legal Sex Female 6:22 AM GASTROENTEROLOGY MANAGER Gender Identity Not on file Sexual Orientation Not on file documented as of this encounter Plan of Treatment Upcoming Encounters Date Type Department Care Team (Late st Contact Info) Description 05/10/2024 3:00 PM GASTROENTEROLOGY MANAGER Office Visit [facility] [address] [place] [address] [place] [address] [place] 3586568 documented as of this encounter Visit Diagnoses Not on filedocumented in this encounter Care Teams Slab Miller Operator Relationship Specialty Start Date End Date Samaria Cash PA-C [address] [place] [address] PCP - General Family Medicine 03/10/23 11/14/23 [place] [address] [place] 2277168 PCP - General Internal Medicine 11/21/23 Maria Garcia NP 909 [place], [place] [address] Nurse Practitioner 09/28/22 Rachana Collins AuD 9 [place], [place] [address]2395 Trick Rodeo Rider Audiology 09/28/22 Olga Lui APRN CNP [address] [place], [place] 8[address]124 Assigned OBGYN Provider 12/25/2202/25 Samaria Cash PA-C [address] [place] 575945 Assigned PCP 02/26/23 12/27/23 Sonja Lemon MD [address] [place] [address] environmental quality analyst 07/26/23 Anitra Albarran MD [address] [place] [address] environmental quality analyst 09/26/23 [place] [address] [facility] [place] [address] Assigned PCP 12/28/23 Solange Castellon PA-C 6525 [facility] [place] [address] Physician Recordist Chief environmental quality analyst 02/15/24 02/15/24 Maxi Massey MD [address] [place], [place] 276787 environmental quality analyst 02/15/24 Ogla Lui APRN PLANT ASSIGNER [address] [address] Assigned OBGYN Provider 03/29/24 documented as of this encounter
--- OUTSIDE RECORDS SUMMARY | 2024-05-04 09:12 | XMS_ITS | Encounter Summary ---
Author Organization [facility] Address [address] [place] [address]. [place] [address] Care Team Providers Care Racket Stringer Name Role Phone Maria Garcia NP Unavailable [phone] Rachana Collins Unavailable [phone] Olga Lui APRN GROUND WIRER Unavailable [phone] Samaria Cash PA-C Unavailable Samaria Cash PA-C Primary Care Provider [phone] Sonja Lemon MD Unavailable [phone] Anitra Albarran MD Unavailable [phone] Jackelyn Metcalf MD Primary Care Provider [phone] Jackelyn Metcalf MD Unavailable Solange Castellon PA-C Unavailable [phone] Maxi Massey MD Unavailable [phone] Olga Lui APRN GROUND WIRER Unavailable [phone] Encounter Details Date Type Department Care Team (Late st Contact Info) Description 08/23/2023 [facility] [address] [place] [address] [place] [address] [place] [address] Social History Tobacco Use Types [...] on file Legal Sex Female 6:22 AM SHELL WORKER Gender Identity Not on file Sexual Orientation Not on file documented as of this encounter Plan of Treatment Upcoming Encounters Date Type Department Care Team (Late st Contact Info) Description 05/10/2024 3:00 PM SHELL WORKER Office Visit [facility] [address] [place] [address] [place] [address] [place] 6286668 documented as of this encounter Visit Diagnoses Not on filedocumented in this encounter Care Teams Racket Stringer Relationship Specialty Start Date End Date Samaria Cash PA-C [address] [place] [address]77[address] PCP - General Family Medicine 03/10/23 11/14/23 [place] [address] [place] 0151668 PCP - General Internal Medicine 11/21/23 Maria Garcia NP 909 [place], [place] 394445 Nurse Practitioner 09/28/22 Rachana Collins AuD 909 [place], [place] 169785 Interior Designer Audiology 09/28/22 Olga Lui APRN CNP [address] [place], [place] [address] Assigned OBGYN Provider 12/25/2202/25 Samaria Cash PA-C [address] [place] [address] Assigned PCP 02/26/23 12/27/23 Sonja Lemon MD [address] [place] [address] dispatcher chief oil 07/26/23 Anitra Albarran MD [address] [place] [address] dispatcher chief oil 09/26/23 [place] [address] [address] [address] Assigned PCP 12/28/23 Solange Castellon PA-C 6525 [facility] [place] [address] Physician Jewel Gauger dispatcher chief oil 02/15/24 02/15/24 Maxi Massey MD [address] [place] [place], [place] 494927 dispatcher chief oil 02/15/24 Olga Lui APRN CNP [address] 309664 Assigned OBGYN Provider 03/29/24 documented as of this encounter
--- OUTSIDE RECORDS SUMMARY | 2024-05-04 09:12 | XMS_ITS | Encounter Summary ---
Author Organization [facility] Address [address] [place] [address] Care Team Providers Care Language Instructor Name Role Phone Maria Garcia NP Unavailable [phone] Rachana Collins Unavailable [phone] Olga Lui APRN RUG RENOVATOR Unavailable [phone] Samaria Cash PA-C Unavailable Samaria Cash PA-C Primary Care Provider [phone] Sonja Lemon MD Unavailable [phone] Anitra Albarran MD Unavailable Jackelyn Metcalf MD Primary Care Provider [phone] Jackelyn Metcalf MD Unavailable Solange Castellon PA-C Unavailable [phone] Maxi Massey MD Unavailable [phone] Olga Lui APRN RUG RENOVATOR Unavailable [phone] Encounter Details Date Type Department Care Team (Late st Contact Info) Description 03/14/2023 [facility] [address] [place] [address] 700 [place] [address] Olga Lui APRN RUG RENOVATOR [address] [place] [address] 700 [place], [place] 938304 Social History Tobacco Use Types Packs/Day Years [...] on file Legal Sex Female 6:22 AM HAND CANDY MOLDER Gender Identity Not on file Sexual Orientation Not on file documented as of this encounter Miscellaneous Notes * Telephone Encounter - Olga Lui APRN CNP - 03/14/2023 12:55 PM HAND CANDY MOLDER Hi, I already sent her a message, and a prescription. Waiting for UC for uti meds. Olga Lui APRN CNP CANDY MOLDER * Telephone Encounter - Juju Dihn RN - 03/14/2023 12:38 PM HAND CANDY MOLDER Pt wondering about UA/wet prep results + Clue cells UC in process Flagyl pended CANDY MOLDER documented in this encounter Plan of Treatment Upcoming Encounters Date Type Department Care Team (Late st Contact Info) Description 05/10/2024 3:00 PM HAND CANDY MOLDER Office Visit [facility] [address] [place] [address] [place] [address] [address] [place], [place] 0985868 documented as of this encounter Visit Diagnoses Not on filedocumented in this encounter Care Teams Language Instructor Relationship Specialty Start Date End Date Samaria Cash PA-C [address] [facility] 200 [place] [address] PCP - General Family Medicine 03/10/23 11/14/23 [place] [address] [facility] [place] 95[address] PCP - General Internal Medicine 11/21/23 Maria Garcia NP 9 [place], [place] 542655 Nurse Practitioner 09/28/22 Rachana Collins AuD 909 [place], [place] [address] Cigarette Book Maker Audiology 09/28/22 Olga Lui APRN CNP [address] [place], [place] 245784 Assigned OBGYN Provider 12/25/2202/25 Samaria Cash PA-C [address] [facility] 200 [place], [place] [address] Assigned PCP 02/26/23 12/27/23 Sonja Lemon MD [address] [place], [place] 718[address] manager cafe 07/26/23 Anitra Albarran MD [address] [place] [address] manager cafe 09/26/23 [place] [address] [place] [address] Assigned PCP 12/28/23 Solange Castellon PA-C [address] [place] [address]75 Physician Learning Analyst manager cafe 02/15/24 02/15/24 Maxi Massey MD [address] [place] [address] manager cafe 02/15/24 Olga Lui APRN RUG RENOVATOR [address] [address] Assigned OBGYN Provider 03/29/24 documented as of this encounter
--- OUTSIDE RECORDS SUMMARY | 2024-05-04 09:12 | XMS_ITS | Encounter Summary ---
Author Organization [facility] Address [address] [place] [address] Care Team Providers Care Bulk Sealer Operator Name Role Phone No Ref-Primary, Physician Primary Care Provider Maria Garcia NP Unavailable [phone] Rachana Collins Unavailable [phone] Katie Daley MARSHMALLOW MACHINE WORKER ASSISTANT SPA DIRECTOR Unavailable Un available Olga Lui APRN ASSISTANT SPA DIRECTOR Unavailable [phone] Samaria Cash PA-C Unavailable [phone] Samaria Cash PA-C Primary Care Provider [phone] Sonja Lemon MD Unavailable [phone] Anitra Albarran MD Unavailable [phone] Jackelyn Metcalf MD Primary Care Provider [phone] Jackelyn Metcalf MD Unavailable Solange Castellon PA-C Unavailable [phone] Maxi Massey MD Unavailable [phone] Olga Lui APRN ASSISTANT SPA DIRECTOR Unavailable [phone] Encounter Details Date Type Department Care Team (Late st Contact Info) Description 12/13/2022 [facility] [address] [address] Amy Leo Social History Tobacco Use Types Packs/Day Years [...] on file Legal Sex Female 6:22 AM SALESFORCE SPECIALIST Gender Identity Not on file Sexual Orientation Not on file documented as of this encounter Plan of Treatment Upcoming Encounters Date Type Department Care Team (Late st Contact Info) Description 05/10/2024 3:00 PM SALESFORCE SPECIALIST Office Visit [facility] [address] [place] [address] [place] [address] [place], [place] 7947768 documented as of this encounter Visit Diagnoses Not on filedocumented in this encounter Care Teams Bulk Sealer Operator Relationship Specialty Start Date End Date No Ref-Primary, Physician PCP - General 04/17/20 03/09/23 Samaria Cash PA-C [address] 1629[address] PCP - General Family Medicine 03/10/23 11/14/23 [place] [address] [place] [address] PCP - General Internal Medicine 11/21/23 Maria Garcia NP [address] [place] [address] 955415 Nurse Practitioner 09/28/22 Rachana Collins AuD [address] [place] [address] Mid Level Business Analyst Audiology 09/28/22 Katie Daley APRN ASSISTANT SPA DIRECTOR Assigned PCP 09/02/22 02/04/23 Olga Lui APRN ASSISTANT SPA DIRECTOR [address] [place], [place] 257[address] Assigned OBGYN Provider 12/25/2202/25 Samaria Cash PA-C [address] [facility] 200 [place], [place] 2[address] Assigned PCP 02/26/23 12/27/23 Sonja Lemon MD [address] [facility] [place] 592827 gate guard 07/26/23 Anitra Albarran MD [address] [place] [address] gate guard 09/26/23 [place] [address] [place] [address] Assigned PCP 12/28/23 Solange Castellon PA-C [address] [place] 457495 Physician Division Plant Engineer gate guard 02/15/24 02/15/24 Maxi Massey MD [address] [place] 103157 gate guard 02/15/24 Olga Lui APRN ASSISTANT SPA DIRECTOR [address] [address] Assigned OBGYN Provider 03/29/24 documented as of this encounter
--- OUTSIDE RECORDS SUMMARY | 2024-05-04 09:12 | XMS_ITS | Encounter Summary ---
Author Organization [place] Address [facility] [place] [place] [address] Care Team Providers Care Wooling Machine Operator Name Role Phone Maria Garcia NP Unavailable [phone] Rachana Collins Unavailable [phone] Olga Lui APRN ENERGY MANAGEMENT SPECIALIST Unavailable [phone] Samaria Cash PA-C Unavailable [phone] Samaria Cash PA-C Primary Care Provider [phone] Sonja Lemon MD Unavailable [phone] Anitra Albarran MD Unavailable [phone] Jackelyn Metcalf MD Primary Care Provider [phone] Jackelyn Metcalf MD Unavailable Solange Castellon PA-C Unavailable [phone] Maxi Massey MD Unavailable [phone] Olga Lui APRN ENERGY MANAGEMENT SPECIALIST Unavailable [phone] Reason for Referral * Consultation (Routine: Next available opening) - Pending Review Specialty Diagnoses / Procedures Referred By Heather florez Referred To Contact Otolaryngology Diagnoses Burning sensation of mouth Samaria Cash PA-C [address] [facility] [address] [place] [address] Phone: tel: fax: [facility] [place] [address] [place] [address] Phone: tel: fax: Referral ID Status Reason Start Date Expiration Date V isits Requested Visits Authorized [id number] Pending Review 07/27/2023 07/26/2024 1 1 Question Answer Reason for Referral: Voice/Throat Scheduling Instructions: external referral, pt will call to schedule. Comments Please be aware that coverage of these services is subject to the terms and limitations of your health insurance plan. Call member services at your health plan with any benefit or coverage questions. external referral, pt will call to schedule. Reason for Visit * Reason Onset Date Comments Patient Request 07/27/2023 Encounter Details Date Type Department Care Team (Late st Contact Info) Description 07/27/2023 MyC Medical Advice [address] [address] Samaria Cash PA-C 6565 [facility] [address] [place], [place] [address] Patient Request Social History Tobacco Use Types Packs/Day Years [...] on file Legal Sex Female 6:22 AM COMMUNITY HEALTH NURSING DIRECTOR Gender Identity Not on file Sexual Orientation Not on file documented as of this encounter Miscellaneous Notes * Telephone Encounter - Dana Montez MA - 07/27/2023 1:01 PM CDT Faxed ENT [phone] Burak rodríguez * Telephone Encounter - Samaria Cash PA-C - 07/27/2023 12:01 PM CDT External referral to ENT In my outbox. Please fax. * Telephone Encounter - Leda Roldan RN - 07/27/2023 11:01 AM CDT Samaria- see Victoria Plumbt message below. Please advise. Leda Fedderly, RN documented in this encounter Plan of Treatment Upcoming Encounters Date Type Department Care Team (Late st Contact Info) Description 05/10/2024 3:00 PM COMMUNITY HEALTH NURSING DIRECTOR Office Visit [facility] [address] [place] [phone] [place] [address] [place] [address] Scheduled Referrals Name Type Priority Associated Diagnoses Orde r Schedule Adult ENT Mud Jack Nozzle Worker Referral Referral Routine: Next available opening Burning sensation of mouth Expected: 07/27/2023 (Approximate), Expires: 07/26/2024 documented as of this encounter Visit Diagnoses Diagnosis Burning sensation of mouth- Primary Other and unspecified diseases of the oral soft tissues documented in this encounter Care Teams Wooling Machine Operator Relationship Specialty Start Date End Date Samaria Cash PA-C [address] [facility] [address] [place], [place] [address] PCP - General Family Medicine 03/10/23 11/14/23 [place] [address] [address] [place] [address] PCP - General Internal Medicine 11/21/23 Maria Garcia NP [address] [place] [address] 700465 Nurse Practitioner 09/28/22 Rachana Collins AuD [address] [place] [address] Traveling Inventory Associate Audiology 09/28/22 Olga Lui APRN ENERGY MANAGEMENT SPECIALIST [address] [address] [facility] [address] [place] [address] Assigned OBGYN Provider 12/25/2202/25 Samaria Cash PA-C [address] [facility] 200 [place] [address] Assigned PCP 02/26/23 12/27/23 Sonja Lemon MD [address] [place] [address] chief engineer 07/26/23 Anitra Albarran MD [address] [place] [address] chief engineer 09/26/23 [place] [address] [address] [place] [address] Assigned PCP 12/28/23 Solange Castellon PA-C [address] [place] [address] Physician Entertainment Dancer chief engineer 02/15/24 02/15/24 Maxi Massey MD [address] [place] [address] chief engineer 02/15/24 Olga Lui APRN ENERGY MANAGEMENT SPECIALIST [address] [facility] 700 [place] [address] Assigned OBGYN Provider 03/29/24 documented as of this encounter
--- OUTSIDE RECORDS SUMMARY | 2024-05-04 09:12 | XMS_ITS | Encounter Summary ---
Author Organization [place] Address [address] [place] [address]. [place] [address] Care Team Providers Care Allergy Specialist Name Role Phone Maria Garcia NP Unavailable [phone] KarinaRachana egan Unavailable [phone] Olga Lui APRN DIRECTOR FOUNDATION Unavailable [phone] Sonja Lemon MD Unavailable [phone] Anitra Albarran MD Unavailable [phone] Jackelyn Metcalf MD Primary Care Provider [phone] Jackelyn Metcalf MD Unavailable Solange Castellon PA-C Unavailable [phone] Maxi Massey MD Unavailable [phone] Olga Lui APRN DIRECTOR FOUNDATION Unavailable [phone] Encounter Details Date Type Department Care Team (Late st Contact Info) Description 12/28/2023 [facility] [address] [place] [address] [place] [address] [place] [address] Social History Tobacco Use Types [...] in an abandoned building, in an overnight mcc, or couch-surfing.) Patient refused 01/31/2023 Are you [...] on file Legal Sex Female 6:22 AM LITIGATION LEGAL SECRETARY Gender Identity Not on file Sexual Orientation Not on file documented as of this encounter Plan of Treatment Upcoming Encounters Date Type Department Care Team (Late st Contact Info) Description 05/10/2024 3:00 PM LITIGATION LEGAL SECRETARY Office Visit [address] [address] [place] [address] [place] 3836768 documented as of this encounter Visit Diagnoses Not on filedocumented in this encounter Care Teams Allergy Specialist Relationship Specialty Start [place] [address] [address] [place] [id number] PCP - General Internal Medicine 11/21/23 Maria Garcia NP 909 [place] [address] Nurse Practitioner 09/28/22 Rachana Collins AuD 909 [place] [address] Grain Shoveler Audiology 09/28/22 Olga Lui APRN CNP [address] [address] Assigned OBGYN Provider 12/25/2202/25 Sonja Lemon MD [address] [place] [address] fire lieutenant marine 07/26/23 Anitra Albarran MD [address] [place] [address] fire lieutenant marine 09/26/23 [place] [address] [address] [place] [address] Assigned PCP 12/28/23 Solange Castellon PA-C [address] [facility] [place] [address] Physician Manager Grocery fire lieutenant marine 02/15/24 02/15/24 Maxi Massey MD [address] [place] [address] fire lieutenant marine 02/15/24 Olga Lui APRN CNP [address] 1085[address] Assigned OBGYN Provider 03/29/24 documented as of this encounter
--- OUTSIDE RECORDS SUMMARY | 2024-05-04 09:12 | XMS_ITS | Encounter Summary ---
Author Organization [place] Address [address] [place] [address]. [place] [address] Care Team Providers Care Stave Inspector Name Role Phone Maria Garcia NP Unavailable [phone] Rachana Collins Unavailable [phone] Olga Lui APRN COST ESTIMATOR Unavailable [phone] Sonja Lemon MD Unavailable [phone] Anitra Albarran MD Unavailable [phone] Jackelyn Metcalf MD Primary Care Provider [phone] Jackelyn Metcalf MD Unavailable Solange Castellon PA-C Unavailable [phone] Maxi Massey MD Unavailable [phone] Olga Lui APRN COST ESTIMATOR Unavailable [phone] Encounter Details Date Type Department Care Team (Late st Contact Info) Description 01/30/2024 [facility] Medical Advice [facility] [address] [place] [address] [place] [address] [place] [address] Social History Tobacco Use Types [...] on file Legal Sex Female 6:22 AM HELPER METAL HANGING Gender Identity Not on file Sexual Orientation Not on file documented as of this encounter Plan of Treatment Upcoming Encounters Date Type Department Care Team (Late st Contact Info) Description 05/10/2024 3:00 PM HELPER METAL HANGING Office Visit [address] [address] [place] [address] [address] [place] 6772668 documented as of this encounter Visit Diagnoses Not on filedocumented in this encounter Care Teams Stave Inspector Relationship Specialty Start [place] [address] [address] [place] [id number] PCP - General Internal Medicine 11/21/23 Maria Garcia NP 909 [place] [address] Nurse Practitioner 09/28/22 Rachana Collins AuD 909 [place] [address] Battery Mechanic Audiology 09/28/22 Olga Lui APRN CNP [address] [address] Assigned OBGYN Provider 12/25/2202/25 Sonja Lemon MD [address] [place] [address] serging machine operator 07/26/23 Anitra Albarran MD [address] [place] [address] serging machine operator 09/26/23 [place] [address] [address] [address] Assigned PCP 12/28/23 Solange Castellon PA-C 6525 [facility] [place] [address] Physician Harness Mender serging machine operator 02/15/24 02/15/24 Maxi Massey MD [address] [place] [address] serging machine operator 02/15/24 Olga Lui APRN CNP [address] [address] Assigned OBGYN Provider 03/29/24 documented as of this encounter
--- OUTSIDE RECORDS SUMMARY | 2024-05-04 09:12 | XMS_ITS | Encounter Summary ---
Author Organization [place] Address [address] [place] [address] Care Team Providers Care Marketing Automation Manager Name Role Phone No Ref-Primary, Physician Primary Care Provider Maria Garcia NP Unavailable [phone] Rachana Collins Unavailable [phone] Katie Daley CHAMBER MAGISTRATE ORDER PULLER Unavailable Un available Olga Lui APRN ORDER PULLER Unavailable [phone] Samaria Cash PA-C Unavailable [phone] Samaria Cash PA-C Primary Care Provider [phone] Sonja Lemon MD Unavailable [phone] Anitra Albarran MD Unavailable [phone] Jackelyn Metcalf MD Primary Care Provider [phone] Jackelyn Metcalf MD Unavailable Solange Castellon PA-C Unavailable [phone] Maxi Massey MD Unavailable [phone] Olga Lui APRN ORDER PULLER Unavailable [phone] Encounter Details Date Type Department Care Team (Late st Contact Info) Description 01/10/2023 [facility] [address] [place] [address] Gatito Nicole Social History Tobacco Use Types Packs/Day Years [...] on file Legal Sex Female 6:22 AM MANAGER ENTERPRISE Gender Identity Not on file Sexual Orientation Not on file documented as of this encounter Plan of Treatment Upcoming Encounters Date Type Department Care Team (Late st Contact Info) Description 05/10/2024 3:00 PM MANAGER ENTERPRISE Office Visit [facility] [address] [place] [address] [place] [address] [place], [place] [address] documented as of this encounter Visit Diagnoses Not on filedocumented in this encounter Care Teams Marketing Automation Manager Relationship Specialty Start Date End Date No Ref-Primary, Physician PCP - General 04/17/20 03/09/23 Samaria Cash PA-C [address] [address] PCP - General Family Medicine 03/10/23 11/14/23 [place] [address] [place] [address] PCP - General Internal Medicine 11/21/23 Maria Garcia NP [address] [place] [address] 161095 Nurse Practitioner 09/28/22 Rachana Collins AuD [address] [place] [address] Deputy Register Of Deeds Audiology 09/28/22 Katie Daley APRN ORDER PULLER Assigned PCP 09/02/22 02/04/23 Olga Lui APRN ORDER PULLER [address] [place], [place] [address] Assigned OBGYN Provider 12/25/2202/25 Samaria Cash PA-C [address] [facility] 200 [place], [place] 7[address] Assigned PCP 02/26/23 12/27/23 Sonja Lemon MD [address] [facility] [place] [address] city weighmaster 07/26/23 Anitra Albarran MD [address] [facility] [place] 350[address] city weighmaster 09/26/23 [place] [address] [place] [address] Assigned PCP 12/28/23 Solange Castellon PA-C [address] [address] Physician Turkey Boner city weighmaster 02/15/24 02/15/24 Maxi Massey MD [address] [place] [address]487 city weighmaster 02/15/24 Olga Lui APRN ORDER PULLER [address] [address] Assigned OBGYN Provider 03/29/24 documented as of this encounter
--- OUTSIDE RECORDS SUMMARY | 2024-05-04 09:12 | XMS_ITS | Encounter Summary ---
Author Organization [place] Address [address] [place] [address] Care Team Providers Care Printed Circuit Boards Inspector Name Role Phone No Ref-Primary, Physician Primary Care Provider Maria Garcia NP Unavailable [phone] Rachana Collins Unavailable [phone] Katie Daley VICE PRESIDENT PAYER KNOCKDOWN MAN Unavailable Un available Olga Lui APRN KNOCKDOWN MAN Unavailable [phone] Samaria Cash PA-C Unavailable [phone] Samaria Cash PA-C Primary Care Provider [phone] Sonja Lemon MD Unavailable [phone] Anitra Albarran MD Unavailable [phone] Jackelyn Metcalf MD Primary Care Provider [phone] Jackelyn Metcalf MD Unavailable Solange Castellon PA-C Unavailable [phone] Maxi Massey MD Unavailable [phone] Olga Lui APRN KNOCKDOWN MAN Unavailable [phone] Encounter Details Date Type Department Care Team (Late st Contact Info) Description 01/24/2023 [facility] [address] [place] [address] Olga Iglesias Social History Tobacco Use Types Packs/Day Years [...] on file Legal Sex Female 6:22 AM MEDICAL ANTHROPOLOGY DIRECTOR Gender Identity Not on file Sexual Orientation Not on file documented as of this encounter Plan of Treatment Upcoming Encounters Date Type Department Care Team (Late st Contact Info) Description 05/10/2024 3:00 PM MEDICAL ANTHROPOLOGY DIRECTOR Office Visit [facility] [address] [place] [address] [place] [address] [place], [place] [address] documented as of this encounter Visit Diagnoses Not on filedocumented in this encounter Care Teams Printed Circuit Boards Inspector Relationship Specialty Start Date End Date No Ref-Primary, Physician PCP - General 04/17/20 03/09/23 Samaria Cash PA-C [address] [address] PCP - General Family Medicine 03/10/23 11/14/23 [place] [address] [place] [address] PCP - General Internal Medicine 11/21/23 Maria Garcia NP [address] [place] [address] Nurse Practitioner 09/28/22 Rachana Collins AuD [address] [place] [address] 615335 Film Loader Audiology 09/28/22 Katie Daley APRN KNOCKDOWN MAN Assigned PCP 09/02/22 02/04/23 Olga Lui APRN KNOCKDOWN MAN [address] [place], [place] [address] Assigned OBGYN Provider 12/25/2202/25 Samaria Cash PA-C [address] [facility] 200 [place], [place] [address] Assigned PCP 02/26/23 12/27/23 Sonja Lemon MD [address] [place] [address] spindle plumber 07/26/23 Anitra Albarran MD [address] [place], [place] [address] spindle plumber 09/26/23 [place] [address] [place] [address] Assigned PCP 12/28/23 Solange Castellon PA-C [address] [place] 9[address]65 Physician Paragliding Instructor spindle plumber 02/15/24 02/15/24 Maxi Massey MD [address] [place] 9[address]187 spindle plumber 02/15/24 Olga Lui APRN KNOCKDOWN MAN [address] [address] Assigned OBGYN Provider 03/29/24 documented as of this encounter
--- OUTSIDE RECORDS SUMMARY | 2024-05-04 09:12 | XMS_ITS | Encounter Summary ---
Author Organization [place] Address [address] [place] [address] Care Team Providers Care Polysom Tech Name Role Phone No Ref-Primary, Physician Primary Care Provider Maria Garcia NP Unavailable [phone] Rachana Collins Unavailable [phone] Katie Daley APRN MOCK UP BUILDER Unavailable Un available Olga Lui APRN MOCK UP BUILDER Unavailable [phone] Samaria Cash PA-C Unavailable [phone] Samaria Cash PA-C Primary Care Provider [phone] Sonja Lemon MD Unavailable [phone] Anitra Albarran MD Unavailable [phone] Jackelyn Metcalf MD Primary Care Provider [phone] Jackelyn Metcalf MD Unavailable Solange Castellon PA-C Unavailable [phone] Maxi Massey MD Unavailable [phone] Olga Lui APRN MOCK UP BUILDER Unavailable [phone] Encounter Details Date Type Department Care Team (Late st Contact Info) Description 01/11/2023 [facility] [address] [address] Olga Lui APRN CNP 606 [facility] 700 [place] [address] Social History Tobacco Use Types Packs/Day Years [...] on file Legal Sex Female 6:22 AM OPERATIONS TEAM LEADER Gender Identity Not on file Sexual Orientation Not on file documented as of this encounter Plan of Treatment Upcoming Encounters Date Type Department Care Team (Late st Contact Info) Description 05/10/2024 3:00 PM OPERATIONS TEAM LEADER Office Visit [facility] [address] [place] [address] [place] [address] [place], [place] 0086[address] documented as of this encounter Visit Diagnoses Not on filedocumented in this encounter Care Teams Polysom Tech Relationship Specialty Start Date End Date No Ref-Primary, Physician PCP - General 04/17/20 03/09/23 Samaria Cash PA-C 6565 [facility] 200 [place], [place] [address] PCP - General Family Medicine 03/10/23 11/14/23 [place] [address] [place], [place] 96[address] PCP - General Internal Medicine 11/21/23 Maria Garcia NP [address] [place] [address] Nurse Practitioner 09/28/22 Rachana Collins AuD 909 [place], [place] 613[address] Binder Coverstitch Audiology 09/28/22 Katie Daley, BARIATRIC NURSE MOCK UP BUILDER Assigned PCP 09/02/22 02/04/23 Olga Lui APRN MOCK UP BUILDER [address] [place], [place] 464[address] Assigned OBGYN Provider 12/25/2202/25 Samaria Cash PA-C [address] [facility] [address] [facility] 200 [place], [place] 27[address] Assigned PCP 02/26/23 12/27/23 Sonja Lemon MD [address] [place], [place] 5[address]37 asl interpreter 07/26/23 Anitra Albarran MD [address] [place] [place], [place] 6[address] asl interpreter 09/26/23 [place] [address] [place] [address] Assigned PCP 12/28/23 Solange Castellon PA-C [address] [place] [address] Physician Market Basket Maker asl interpreter 02/15/24 02/15/24 Maxi Massey MD [address] [place] [address] asl interpreter 02/15/24 Olga Lui APRN MOCK UP BUILDER [address] [place] [address] Assigned OBGYN Provider 03/29/24 documented as of this encounter
--- OUTSIDE RECORDS SUMMARY | 2024-05-04 09:12 | XMS_ITS | Encounter Summary ---
Author Organization [place] Address [address] [place] [address] Care Team Providers Care Tap Out Operator Name Role Phone No Ref-Primary, Physician Primary Care Provider Maria Garcia NP Unavailable [phone] Rachana Collins Unavailable [phone] Olga Lui APRN MANAGER ART Unavailable [phone] Samaria Cash PA-C Unavailable [phone] Samaria Cash PA-C Primary Care Provider Sonja Lemon MD Unavailable [phone] Anitra Albarran MD Unavailable [phone] Jackelyn Metcalf MD Primary Care Provider [phone] Jackelyn Metcalf MD Unavailable Solange Castellon PA-C Unavailable [phone] Maxi Massey MD Unavailable [phone] Olga Lui APRN MANAGER ART Unavailable [phone] Encounter Details Date Type Department Care Team (Late st Contact Info) Description 02/16/2023 [facility] [address] [place] [address] 700 [place] [address] Olga Lui APRN MANAGER ART [address] [place] [address] Social History Tobacco Use Types Packs/Day Years [...] in an abandoned building, in an overnight long-term, or couch-surfing.) Patient refused 01/31/2023 Are you [...] on file Legal Sex Female 6:22 AM MISSILE TECHNICIAN Gender Identity Not on file Sexual Orientation Not on file documented as of this encounter Plan of Treatment Upcoming Encounters Date Type Department Care Team (Late st Contact Info) Description 05/10/2024 3:00 PM MISSILE TECHNICIAN Office Visit [facility] [address] [address] [phone] [place] [address] [address] [place] 71146[address] documented as of this encounter Visit Diagnoses Not on filedocumented in this encounter Care Teams Tap Out Operator Relationship Specialty Start Date End Date No Ref-Primary, Physician PCP - General 04/17/20 03/09/23 Samaria Cash PA-C 6565 [facility] 200 [place], [place] [address] PCP - General Family Medicine 03/10/23 11/14/23 [place] [address] [place] [address] PCP - General Internal Medicine 11/21/23 Maria Garcia NP 9 [place], [place] 58[address] Nurse Practitioner 09/28/22 Rachana Collins AuD 9 [place], [place] 8[address] Operations Representative Audiology 09/28/22 Olga Lui APRN CNP 606 [facility] 700 [place] [address] Assigned OBGYN Provider 12/25/2202/25 Samaria Cash PA-C [address] [place] [address] Assigned PCP 02/26/23 12/27/23 Sonja Lemon MD [address] [place] [address] crepe sole scourer 07/26/23 Anitra Albarran MD [address] [place] [address] crepe sole scourer 09/26/23 [place] [address] [address] [place] [address] Assigned PCP 12/28/23 Solange Castellon PA-C [address] [place] [address] Physician Planning Rn crepe sole scourer 02/15/24 02/15/24 Maxi Massey MD [address] [place] [address] crepe sole scourer 02/15/24 Olga Lui APRN MANAGER ART [address] [place] [address] Assigned OBGYN Provider 03/29/24 documented as of this encounter
[2024-05-04 09:20] VITALS: BP 119/77; PULSE 93; RESP 18; TEMP 36.6; O2SAT 96; BMI 21.3
--- OUTSIDE RECORDS SUMMARY | 2024-05-04 10:25 | XMS_ITS | Encounter Summary ---
Author Organization [place] Address [address] [place] [address]. [place] [address] Care Team Providers Care Roofer Name Role Phone Maria Garcia HEALTHCARE RECEPTIONIST Unavailable [phone] Rachana Collins Brien Hannon Unavailable [phone] Sonja Lemon MD Unavailable [phone] Anitra Albarran MD Unavailable [phone] Jayla Metcalf MD Primary Care Provider Jayla Metcalf MD Unavailable Maxi Massey MD Unavailable [phone] Olga Lui APRN [facility] Unavailable Reason for Visit * Reason Onset Date Comments Vaginal Discharge Entered automa tically [place] Vaginal Problem 03/27/2024 Encounter Details Date Type Department Care Team (Late st Contact Info) Description 03/27/2024 3:30 PM RELIEF MAN E-Visit [facility] [address] [place] [address] [place] [address] [place] [address] Vaginal Discharge (Entered automatically b... [...] on file Legal Sex Female 6:22 AM RELIEF MAN Gender Identity Not on file Sexual Orientation Not on file documented as of this encounter Miscellaneous Notes * Addendum Note - Jayla Metcalf MD - 03/27/2024 3:30 PM CSTAddended by: JAYLA METCALF on: 03/29/2024 12:31 PM Modules accepted: Orders EF MAN * Telephone Encounter - Jayla Metcalf MD - 03/27/2024 3:23 PM CST Provider E-Visit time total (minutes): 4 EF MAN documented in this encounter Plan of Treatment Upcoming Encounters Date Type Department Care Team (Late st Contact Info) Description 05/10/2024 3:00 PM RELIEF [facility] [address] [place] [address] [place] [address] [place] [address] documented as of this encounter Results * Multiplex Vaginal Panel by PCR (03/28/2024 1:56 PM RELIEF MAN) Pathologist [facility] Bacterial Vaginosis Organism DNA Negative Negative 03/28/2024 8:57 PM RELIEF MAN [facility] Comment: Indicator DNA target(s) related to bacterial vaginosis organisms is/are not detected. Organisms associated with bacterial vaginosis that are targeted in this assay include Atopobium spp., Bacterial Vaginosis-Associated Bacterium-2, and Megasphaera-1. Detected organisms are not reported individually. Rita Group DNA Not Detected Not Detected 03/28/2024 8:57 PM RELIEF MAN [facility] Comment:Rita group specie s detected by this target include C. albicans, C. tropicalis, C. parapsilosis, C. dubliniensis. Rita glabrata / Rita krusei DNA Not Detected Not Detected 03/28/2024 8:57 PM RELIEF MAN [facility] Trichomonas vaginalis DNA Not Detected Not Detected 03/28/2024 8:57 PM RELIEF MAN [facility] Swab VAGINAL STRUCTURE / Unknown Non-blood Collection / Unknown 03/28/2024 1:56 PM RELIEF MAN 03/28/2024 1:56 PM RELIEF MAN Narrative [facility] - 03/28/2024 8:57 PM RELIEF MAN The Xpert Xpress MVP test, performed on the [employer], is an automated, qualitative in vitro [...] ORDERABLES F inal Result [facility], Room D297 [place] [id number] documented in this encounter Visit Diagnoses Diagnosis Abdominal pain, left lower quadrant- Primary Thrush Candidiasis of mouth documented in this encounter Care Teams Roofer Relationship Specialty [place] [address] [place] [address] PCP - General Internal Medicine 11/21/23 Maria Garcia NP [address] [place] [address] Nurse Practitioner 09/28/22 Rachana Collins AuD [address]09 [place] [address] Line Erector Audiology 09/28/22 Sonja Lemon MD [address] [place] [address] candy dipper hand 07/26/23 Anitra Albarran MD [address] [place] [address] candy dipper hand 09/26/23 [place] [address] [place] [address] Assigned PCP 12/28/23 Maxi Massey MD [address] [place] [address] candy dipper hand 02/15/24 Olga Lui APRN SUPERVISOR DRYING [address] [address] Assigned OBGYN Provider 03/29/24 documented as of this encounter
--- OUTSIDE RECORDS SUMMARY | 2024-05-04 10:25 | XMS_ITS | Encounter Summary ---
Author Organization [place] Address [address] [place] [address] Care Team Providers Care Industrial Registered Nurse Name Role Phone Maria Garcia NP Unavailable [phone] Rachana Collins Unavailable [phone] Olga Lui APRN LOCOMOTIVE CRANE ENGINEER Unavailable [phone] Samaria Cash PA-C Unavailable Samaria Cash PA-C Primary Care Provider [phone] Sonja Lemon MD Unavailable [phone] Anitra Albarran MD Unavailable [phone] Jackelyn Metcalf MD Primary Care Provider [phone] Jackelyn Metcalf MD Unavailable Solange Castellon PA-C Unavailable [phone] Maxi Massey MD Unavailable [phone] Olga Lui APRN LOCOMOTIVE CRANE ENGINEER Unavailable [phone] Encounter Details Date Type Department Care Team (Late st Contact Info) Description [address] [facility] [address] [place] [address] 700 [place] [address] Olga Lui APRN LOCOMOTIVE CRANE ENGINEER [address] [place] [address] 700 [place] [address] Vaginal symptom (Primary Dx) Social [...] on file Legal Sex Female 6:22 AM SAFETY LEADER Gender Identity Not on file Sexual Orientation Not on file documented as of this encounter Plan of Treatment Upcoming Encounters Date Type Department Care Team (Late st Contact Info) Description 05/10/2024 3:00 PM SAFETY LEADER Office Visit [facility] [address] [place] [phone] [place] [address] [place] [address] documented as of this encounter Visit Diagnoses Diagnosis Vaginal symptom- Primary documented in this encounter Care Teams Industrial Registered Nurse Relationship Specialty Start Date End Date Samaria Cash PA-C [address] [place] [id number] PCP - General Family Medicine 03/10/23 11/14/23 [place] [address] [place] [address] PCP - General Internal Medicine 11/21/23 Maria Garcia NP [address] [place], [place] 9907[address] Nurse Practitioner 09/28/22 Rachana Collins AuD 909 [place], [place] 6[address] Medical Device Engineer Audiology 09/28/22 Olga Lui APRN CNP [address] [place], [place] 3129[address] Assigned OBGYN Provider 12/25/2202/25 Samaria Cash PA-C [address] [place] 899775 Assigned PCP 02/26/23 12/27/23 Sonja Lemon MD [address] [facility] [address] clinical research coordinator 07/26/23 Anitra Albarran MD [address] [place] [address] clinical research coordinator 09/26/23 [place] [address] [place] [address] Assigned PCP 12/28/23 Solange Castellon PA-C [address] [facility] [place] [place] [address] Physician Bit Gatherer clinical research coordinator 02/15/24 02/15/24 Maxi Massey MD [address] [place], [place] 8[address] clinical research coordinator 02/15/24 Olga Lui APRN LOCOMOTIVE CRANE ENGINEER [address] 346954 Assigned OBGYN Provider 03/29/24 documented as of this encounter
--- OUTSIDE RECORDS SUMMARY | 2024-05-04 10:25 | XMS_ITS | Encounter Summary ---
Author Organization [place] Address [address] [place] [address]. [place] [address] Care Team Providers Care Inspector Salvage Name Role Phone Maria Garcia SIPHONER Unavailable [phone] Rachana Collins Brien Hannon Unavailable [phone] Sonja Lemon MD Unavailable [phone] Anitra Albarran MD Unavailable [phone] Jackelyn Metcalf MD Primary Care Provider Jackelyn Metcalf MD Unavailable Maxi Massey MD Unavailable [phone] Olga Lui APRN [facility] Unavailable Reason for Visit * Reason Onset Date Comments Vaginal Discharge Entered automa [facility]ically [facility] Vag[facility] Problem 04/11/2024 Encounter Details Date Type Department Care Team (Late st Contact Info) Description 04/11/2024 11:30 AM WIPER BLENDER E-Visit [facility] [address] [place] [address] [place] [address] [place] [address] Vaginal Discharge (Entered automatically b... [...] in an abandoned building, in an overnight senior care, or couch-surfing.) Patient refused 01/31/2023 Are you [...] on file Legal Sex Female 6:22 AM WIPER BLENDER Gender Identity Not on file Sexual Orientation Not on file documented as of this encounter Miscellaneous Notes * Telephone Encounter - Jackelyn Metcalf MD - 04/11/2024 12:11 PM CST Provider E-Visit time total (minutes): 3 R BLENDER documented in this encounter Plan of Treatment Upcoming Encounters Date Type Department Care Team (Late st Contact Info) Description 05/10/2024 3:00 PM WIPER BLENDER Office Visit [facility] [address] [facility] [place] [phone] [place] [address] [address] [place] [address] documented as of this encounter Results * (ABNORMAL) Wet prep - lab collect (04/12/2024 7:19 AM WIPER BLENDER) Trichomonas Absent Absent [facility] 04/12/2024 7:25 AM WIPER BLENDER LABORATORY Yeast Present(A) Absent [facility] 04/12/2024 7:25 AM WIPER BLENDER RM LABORATORY Clue Cells Absent Absent [facility] 04/12/2024 7:25 AM WIPER BLENDER LABORATORY WBCs/high power field 1+(A) None [facility] 04/12/2024 7:25 AM WIPER BLENDER LABORATORY Swab VAGINAL STRUCTURE / Unknown Non-blood Collection / Unknown 04/12/2024 7:19 AM WIPER BLENDER 04/12/2024 7:19 AM WIPER BLENDER us Jackelyn Metcalf MD LAB - MICRO GENERAL ORDERABLES F inal Result LABORATORY [facility] [address] [facility] (no room number, 1st floor of clinic) [place] [phone] documented in this encounter Visit Diagnoses Diagnosis Vaginal discharge- Primary Leukorrhea, not specified as infective Bacterial vaginosis Vaginitis and vulvovaginitis, unspecified documented in this encounter Care Teams Inspector Salvage Relationship Specialty [place] [address] [address] [place] [id number] PCP - General Internal Medicine 11/21/23 Maria Garcia NP 9 [place] [address] Nurse Practitioner 09/28/22 Rachana Collins AuD 9 [place] [address] Straw Hat Washer Operator Audiology 09/28/22 Sonja Lemon MD [address] [place] [address] experimental mechanic outboard motors 07/26/23 Anitra Albarran MD [address] [place] [address] experimental mechanic outboard motors 09/26/23 [place] [address] [place] [address] Assigned PCP 12/28/23 Maxi Massey MD [address] [place] [address] experimental mechanic outboard motors 02/15/24 Olga Lui APRN ORTHOTIC TECHNICIAN [address] [address] Assigned OBGYN Provider 03/29/24 documented as of this encounter
--- OUTSIDE RECORDS SUMMARY | 2024-05-04 10:25 | XMS_ITS | Encounter Summary ---
Author Organization [place] Address [address] [place] [address] Care Team Providers Care Surveyor Geophysical Prospecting Name Role Phone Maria Garcia PSYCHOLOGIST EXPERIMENTAL Unavailable [phone] Rachana Collins Unavailable [phone] Sonja Lemon MD Unavailable [phone] Anitra Albarran MD Unavailable [phone] Jayla Metcalf MD Primary Care Provider [phone] Jayla Metcalf MD Unavailable Maxi Massey MD Unavailable [phone] Olga Lui APRN [facility] Unavailable [phone] Encounter Details Date Type Department Care Team (Late st Contact Info) Description 04/12/2024 8:00 AM [facility] [address] [place] [address] Vaginal discharge Social History Tobacco [...] in an abandoned building, in an overnight mcfp, or couch-surfing.) Patient refused 01/31/2023 Are you [...] on file Legal Sex Female 6:22 AM WELL DRILL OPERATOR ROTARY DRILL Gender Identity Not on file Sexual Orientation Not on file documented as of this encounter Miscellaneous Notes * Addendum Note - Jayla Metcalf MD - 04/12/2024 8:00 AM CSTAddended by: JAYLA METCALF T on: 04/12/2024 08:10 AM Modules accepted: Orders DRILL OPERATOR ROTARY DRILL documented in this encounter Plan of Treatment Upcoming Encounters Date Type Department Care Team (Late st Contact Info) Description 05/10/2024 3:00 PM WELL DRILL OPERATOR ROTARY DRILL Office Visit [facility] [address] [place] [phone] [place] [address] [address] [place] [id number] Scheduled Orders Name Type Priority Associated Diagnoses Orde r Schedule Wet prep - lab collect Microbiology Routine Vaginal discharge 12 Occurrences starting 04/12/2024 until 04/12/2025, 2 completed documented as of this encounter Procedures Procedure Name Priority Date/Time Associated Diagnosis Comments WET PREPARATION Routine 04/12/2024 7:19 AM WELL DRILL OPERATOR ROTARY DRILL Vaginal discharge documented in this encounter Results * (ABNORMAL) Wet prep - lab collect (04/24/2024 11:58 AM WELL DRILL OPERATOR ROTARY DRILL) Trichomonas Absent Absent [facility] 04/24/2024 12:04 PM WELL DRILL OPERATOR ROTARY DRILL RM LABORATORY Yeast Absent Absent [facility] 04/24/2024 12:04 PM WELL DRILL OPERATOR ROTARY DRILL RM LABORATORY Clue Cells Absent Absent K[facility] 04/24/2024 12:04 PM WELL DRILL OPERATOR ROTARY DRILL RM LABORATORY WBCs/high power field 2+(A) None [facility]YA 04/24/2024 12:04 PM WELL DRILL OPERATOR ROTARY DRILL RM LABORATORY Swab VAGINAL STRUCTURE / Unknown Non-blood Collection / Unknown 04/24/2024 11:58 AM WELL DRILL OPERATOR ROTARY DRILL 04/24/2024 11:58 AM WELL DRILL OPERATOR ROTARY DRILL us Jayla Metcalf MD LAB - MICRO GENERAL ORDERABLES F inal Result LABORATORY [facility] [address] [facility] (no room number, 1st floor of clinic) [place] [phone], [facility] * (ABNORMAL) Wet prep - lab collect (04/18/2024 3:39 PM WELL DRILL OPERATOR ROTARY DRILL) Trichomonas Absent Absent KAVYA 04/18/2024 3:53 PM WELL DRILL OPERATOR ROTARY DRILL RM LABORATORY Yeast Absent Absent K[facility]YA 04/18/2024 3:53 PM WELL DRILL OPERATOR ROTARY DRILL RM LABORATORY Clue Cells Present(A) Absent K[facility]YA 04/18/2024 3:53 PM WELL DRILL OPERATOR ROTARY DRILL RM LABORATORY WBCs/high power field None None K[facility]YA 04/18/2024 3:53 PM WELL DRILL OPERATOR ROTARY DRILL RM LABORATORY Swab VAGINAL STRUCTURE / Unknown Non-blood Collection / Unknown 04/18/2024 3:39 PM WELL DRILL OPERATOR ROTARY DRILL 04/18/2024 3:52 PM WELL DRILL OPERATOR ROTARY DRILL Jayla Metcalf MD LAB - MICRO GENERAL ORDERABLES F inal Result LABORATORY [facility] [address] [facility] (no room number, 1st floor of clinic) [place] [phone], [facility] * (ABNORMAL) Wet prep - lab collect (04/12/2024 7:19 AM WELL DRILL OPERATOR ROTARY DRILL) Trichomonas Absent Absent KAVYA 04/12/2024 7:25 AM WELL DRILL OPERATOR ROTARY DRILL LABORATORY Yeast Present(A) Absent KAVYA 04/12/2024 7:25 AM WELL DRILL OPERATOR ROTARY DRILL LABORATORY Clue Cells Absent Absent K[facility]YA 04/12/2024 7:25 AM WELL DRILL OPERATOR ROTARY DRILL LABORATORY WBCs/high power field 1+(A) None KAVYA 04/12/2024 7:25 AM WELL DRILL OPERATOR ROTARY DRILL LABORATORY Swab VAGINAL STRUCTURE / Unknown Non-blood Collection / Unknown 04/12/2024 7:19 AM WELL DRILL OPERATOR ROTARY DRILL 04/12/2024 7:19 AM WELL DRILL OPERATOR ROTARY DRILL Jayla Metcalf MD LAB - MICRO GENERAL ORDERABLES F inal Result LABORATORY [facility] [address] [facility] (no room number, 1st floor of clinic) [place] [address], [facility] documented in this encounter Visit Diagnoses Diagnosis Vaginal discharge Leukorrhea, not specified as infective documented in this encounter Care Teams Surveyor Geophysical Prospecting Relationship Specialty [place] [address] [place] [address] PCP - General Internal Medicine 11/21/23 Maria Garcia NP [address] [place] [address] Nurse Practitioner 09/28/22 Rachana Collins AuD 909 [place] [address] Engagement Specialist Audiology 09/28/22 Sonja Lemon MD [address] [place] [address] santa's helper 07/26/23 Anitra Albarran MD [address] [place] [address] santa's helper 09/26/23 [place] [address] [place] [address] Assigned PCP 12/28/23 Maxi Massey MD [address] [place] [address] santa's helper 02/15/24 Olga Lui APRN CNP [address] [facility] [address] [address]39[address] Assigned OBGYN Provider 03/29/24 documented as of this encounter
--- OUTSIDE RECORDS SUMMARY | 2024-05-04 10:25 | XMS_ITS | Encounter Summary ---
Author Organization [place] Address [address] [place] [address] Care Team Providers Care Cupola Tapper Helper Name Role Phone Maria Garcia NP Unavailable [phone] Rachana Collins Unavailable [phone] Olga Lui APRN PROPERTY PRESERVATION SPECIALIST Unavailable [phone] Samaria Cash PA-C Unavailable [phone] Samaria CashC Primary Care Provider [phone] Sonja Lemon MD Unavailable [phone] Anitra Albarran MD Unavailable [phone] Jackelyn Metcalf MD Primary Care Provider [phone] Jackelyn Metcalf MD Unavailable Solange Castellon PA-C Unavailable [phone] Maxi Massey MD Unavailable [phone] Olga Lui APRN PROPERTY PRESERVATION SPECIALIST Unavailable [phone] Reason for Visit * Reason Onset Date Comments Mouth/Lip Problem 07/27/2023 Encounter Details Date Type Department Care Team (Late st Contact Info) Description 07/27/2023 [facility] Medical Advice [address] [address] Samaria Cash PA-C 10[address] [facility] [address] [place] [address] Mouth/Lip Problem Social History Tobacco Use Types [...] in an abandoned building, in an overnight retirement, or couch-surfing.) Patient refused 01/31/2023 Are you [...] on file Legal Sex Female 6:22 AM COMPRESSOR ENGINEER Gender Identity Not on file Sexual Orientation Not on file documented as of this encounter Miscellaneous Notes * Telephone Encounter - Leda Roldan RN - 07/27/2023 8:39 AM CDT Samaria- see Comverging Technologiest message below. Please advise. Leda Roldan RN documented in this encounter Plan of Treatment Upcoming Encounters Date Type Department Care Team (Late st Contact Info) Description 05/10/2024 3:00 PM COMPRESSOR ENGINEER Office Visit [facility] [address] [place] [address] [place] [address] [place], [place] 7[address]47[address] documented as of this encounter Visit Diagnoses Diagnosis Thrush- Primary Candidiasis of mouth documented in this encounter Care Teams Cupola Tapper Helper Relationship Specialty Start Date End Date Samaria Cash PA-C [address] [facility] [address] [address]1995[address] PCP - General Family Medicine 03/10/23 11/14/23 [place] [address] [place], [place] 6[address]15[address] PCP - General Internal Medicine 11/21/23 Maria Garcia NP [address] [place] [address] 791355 Nurse Practitioner 09/28/22 Rachana Collins AuD [address] [place] [address] 252525 Machine Operator Farmworker Audiology 09/28/22 Olga Lui APRN PROPERTY PRESERVATION SPECIALIST [address] [place] [address] Assigned OBGYN Provider 12/25/2202/25 Samaria Cash PA-C [address] [place], [place] [address] Assigned PCP 02/26/23 12/27/23 Sonja Lemon MD [address] [place], [place] 459[address] automobile lights assembler 07/26/23 Anitra Albarran MD [address] [place], [place] 6[address] automobile lights assembler 09/26/23 [place] [address] [place] [address] Assigned PCP 12/28/23 Solange Castellon PA-C [address] [place] [address] Physician Blanket Weaver automobile lights assembler 02/15/24 02/15/24 Maxi Massey MD [address] [place], [place] [address] automobile lights assembler 02/15/24 Olga Lui APRN PROPERTY PRESERVATION SPECIALIST [address] [place] [address] Assigned OBGYN Provider 03/29/24 documented as of this encounter
--- OUTSIDE RECORDS SUMMARY | 2024-05-04 10:25 | XMS_ITS | Referral Summary ---
Author Organization [facility] Address [address] [place] [address] Care Team Providers Care Library Manager Name Role Phone Unavailable Primary Care Provider [...] 11/20/2018,11/14/2017,01/06/2016 Influenza split virus quadrivalent 12/08,12/21/2016,12/10/2014,2013,12/19/2012,01/07/2012,12/21/2010,1 ,12/12/2006,01/04/2006 Pfizer 12+ Yrs Monovalent CO VID Vaccine (purple cap) 02/13/2021,05/08/2020,04/17/2020 Tdap 04/08/2016 Social History Tobacco Use Types Packs/Day Years [...] 11/13/2021 9:31 AM CDT Plan of Treatment Not on file Procedures Procedure Name Priority Date/Time Associated Diagnosis Comments LIPID PROFILE CASCADE Routine 11/13/2021 10:21 AM CDT Screening for cholesterol level MAMMO DIGITAL SCREENING BI Routine 05/29/2021 9:27 AM CDT Visit for screening mammogram PAP (ENGINEER FISHING VESSEL CYTOLOGY) Routine 11/19/2019 8: 43 AM CDT Screening for cervical cancer from Last 3 Months or Most Recently Relevant to Health Maintenance Results * (ABNORMAL) LIPID PROFILE CASCADE (11/13/2021 10:21 AM CDT) CHOLESTEROL 257.0(H) 0.0 - 200.0 mg/dL [facility] TRIGLYCERIDES 116.0 0.0 - 200.0 mg/dL [facility] HDL 53.0 40.0 - 60.0 mg/dL [facility] LDL 180.8(H) 0.0 - 130.[address] [facility] CHOL HDL RATIO 4.8(H) 0.0 - 4.0 [facility] Blood VENOUS BLOOD SPECIMEN / Unknown 11/13/2021 10:21 AM CDT Yoana Chicas APRN, JADEN CHEMISTRY ORDERABLE Zuleyka l Result [facility] [address] [address], [place] [phone] * MAMMO DIGITAL SCREENING BI (05/29/2021 9:27 [...] ORDERABLE Final Re sult * PAP TEST (ENGINEER FISHING VESSEL CYTOLOGY) (11/19/2019 8:43 AM CDT) Case Report Pap Smear Case: [id number] Authorizing Provider: Yoana Chicas APRN, NP Collected: 11/19/2019 08:43 AM Ordering Location: [facility] - Received: 11/19/2019 05:43 PM [facility] First Screen: Noah Hernandez Specimen: Cervical Thin Prep with HPV Test Ophthalmic Medical Technologist Screening, Cervix 11/21/2019 2:41 PM CDT [facility] Interpretation Negative for intraepithelial lesion or malignant cells. 11/21/2019 2:41 PM CDT [facility] Specimen Adequacy Satisfactory for evaluation. Endocervical/trans formation zone component present. 11/21/2019 2:41 PM CDT [facility] LMP 07/05/16 11/21/2019 2:41 PM CDT [facility] Pap Disclaimer This specimen was screened by the [employer] [facility] prior to manual review by a process engineering manager and/or pathologist. The Pap test is a [...] 17 (5): S2-S27 11/21/2019 2:41 PM CDT [facility] Vaginal and cervical cytologic material (specimen) CERVIX UTERI STRUCTURE / Unknown 11/19/2019 8:43 AM CDT 11/19/2019 5:43 PM CDT Comment:Patient's last menst rual period was 07/05/2016. Yoana Chicas APRN, NP PATHOLOGY/CYTOLOGY ORDER ABLE Final Result [facility] [address] [place] [id number] from Last 3 Months or Most Recently Relevant to Health Maintenance Insurance [employer] OPEN ACCESS/CHOICE [place] [id number]
--- OUTSIDE RECORDS SUMMARY | 2024-05-04 10:25 | XMS_ITS | Encounter Summary ---
Author Organization [facility] Address [address] [place] [address] Care Team Providers Care Doctor Of Nurse Anesthesia Name Role Phone Maria Garcia NP Unavailable [phone] Rachana Collins Unavailable [phone] Sonja Lemon MD Unavailable [phone] Anitra Albarran MD Unavailable [phone] Jackelyn Metcalf MD Primary Care Provider [phone] Jackelyn Metcalf MD Unavailable Maxi Massey MD Unavailable [phone] Encounter Details Date Type Department Care Team (Late st Contact Info) Description 03/28/2024 2:15 PM CHIEF PSYCHOLOGY Lab [facility] [address] [place] [address] Abdominal pain, left lower quadrant Social [...] file Legal Sex Female 6:22 AM CHIEF PSYCHOLOGY Gender Identity Not on file Sexual Orientation Not on file documented as of this encounter Plan of Treatment Upcoming Encounters Date Type Department Care Team (Late st Contact Info) Description 05/10/2024 3:00 PM CHIEF PSYCHOLOGY Office Visit [facility] [address] [place] [address] [place] [address] [place] [address] documented as of this encounter Procedures Procedure Name Priority Date/Time Associated Diagnosis Comments MULTIPLEX VAGINAL PANEL BY PCR Routine 03/28/2024 1:56 PM CHIEF PSYCHOLOGY Abdominal pain, left lower quadrant documented in this encounter Results * Multiplex Vaginal Panel by PCR (03/28/2024 1:56 PM CHIEF PSYCHOLOGY) Bacterial Vaginosis Organism DNA Negative Negative 03/28/2024 8:57 PM CHIEF PSYCHOLOGY [facility] Comment: Indicator DNA target(s) related to bacterial vaginosis organisms is/are not detected. Organisms associated with bacterial vaginosis that are targeted in this assay include Atopobium spp., Bacterial Vaginosis-Associated Bacterium-2, and Megasphaera-1. Detected organisms are not reported individually. Rita Group DNA Not Detected Not Detected 03/28/2024 8:57 PM CHIEF PSYCHOLOGY [facility] Comment:Rita group specie s detected by this target include C. albicans, C. tropicalis, C. parapsilosis, C. dubliniensis. Rita glabrata / Rita krusei DNA Not Detected Not Detected 03/28/2024 8:57 PM CHIEF PSYCHOLOGY [facility] Trichomonas vaginalis DNA Not Detected Not Detected 03/28/2024 8:57 PM CHIEF PSYCHOLOGY [facility] Swab VAGINAL STRUCTURE / Unknown Non-blood Collection / Unknown 03/28/2024 1:56 PM CHIEF PSYCHOLOGY 03/28/2024 1:56 PM CHIEF PSYCHOLOGY Narrative [facility] - 03/28/2024 8:57 PM CHIEF PSYCHOLOGY The Xpert Xpress MVP test, performed on the [employer] Instrument Systems, is an automated, qualitative in [...] ORDERABLES F inal Result [facility] Inf. Diseases Diag. Lab [address] [facility], [address] [place] [address] documented in this encounter Visit Diagnoses Diagnosis Abdominal pain, left lower quadrant documented in this encounter Care Teams Doctor Of Nurse Anesthesia Relationship Specialty [place] [address] [address] [id number] PCP - General Internal Medicine 11/21/23 Maria Garcia NP [address] [place] [address] 783915 Nurse Practitioner 09/28/22 Rachana Collins AuD [address] [place] [address] Retail Gift Card Merchandising Audiology 09/28/22 Sonja Lemon MD [address] [place] [id number] instructor flying 07/26/23 Anitra Albarran MD [address] [place] [address] instructor flying 09/26/23 [place] [address] [address] [address] Assigned PCP 12/28/23 Maxi Massey MD [address] [place] [address] instructor flying 02/15/24 documented as of this encounter
--- OUTSIDE RECORDS SUMMARY | 2024-05-04 10:25 | XMS_ITS | Encounter Summary ---
Author Organization [facility] Address [address] [place] [address] Care Team Providers Care Planner Scheduler Name Role Phone Maria Garcia SENIOR ORACLE SOA DEVELOPER Unavailable [phone] Rachana Collins AuD Unavailable [phone] Sonja Lemon MD Unavailable [phone] Anitra Albarran MD Unavailable [phone] Jackelyn Metcalf MD Primary Care Provider [phone] Jackelyn Metcalf MD Unavailable Maxi Massey MD Unavailable [phone] Encounter Details Date Type Department Care Team [...] on file Legal Sex Female 6:22 AM CESSATION SYSTEMS OUTREACH SPECIALIST Gender Identity Not on file Sexual Orientation Not on file documented as of this encounter Plan of Treatment Upcoming Encounters Date Type Department Care Team (Late st Contact Info) Description 05/10/2024 3:00 PM CESSATION SYSTEMS OUTREACH SPECIALIST Office Visit [facility] [address] [place] [address] [place] [address] [place], [place] [id number] documented as of this encounter Visit Diagnoses Not on filedocumented in this encounter Care Teams Planner Scheduler Relationship Specialty Start [place] [address] [address] [facility] [place] [id number] PCP - General Internal Medicine 11/21/23 Maria Garcia NP [address] [place] [address] Nurse Practitioner 09/28/22 Rachana Collins AuD [address] [place] [address] Needle Polisher Audiology 09/28/22 Sonja Lemon MD [address] [place] [address] manager critical care unit 07/26/23 Anitra Albarran MD [address] [place] [address] manager critical care unit 09/26/23 [place] [address] [place] [address] Assigned PCP 12/28/23 Maxi Massey MD [address] [place] [address] manager critical care unit 02/15/24 documented as of this encounter
--- OUTSIDE RECORDS SUMMARY | 2024-05-04 10:25 | XMS_ITS | Clinical Summary ---
Author Organization [facility] Address [address] [place] [address] Care Team Providers Care Ancillary Services Manager Therapy Name Role Phone Unavailable Primary Care Provider [...] 11/20/2018,11/14/2017,01/06/2016 Influenza split virus quadrivalent 12/08,12/21/2016,12/10/2014,2013,12/19/2012,01/07/2012,12/21/2010,1 ,12/12/2006,01/04/2006 [email or web address] 12+ Yrs Monovalent CO VID Vaccine (purple [...] AM CDT Visit for screening mammogram PAP (LOSS PREVENTION AGENT CYTOLOGY) Routine 11/19/2019 8: 43 AM CDT Screening for cervical cancer from Last 3 Months or Most Recently Relevant to Health Maintenance Results * (ABNORMAL) LIPID PROFILE CASCADE (11/13/2021 10:21 AM CDT) CHOLESTEROL 257.0(H) 0.0 - 200.0 mg/dL [facility] TRIGLYCERIDES 116.0 0.0 - 200.0 mg/dL [facility] HDL 53.0 40.0 - 60.0 mg/dL [facility] LDL 180.8(H) 0.0 - 130.0 [facility] CHOL HDL RATIO 4.8(H) 0.0 - 4.0 [facility] Blood VENOUS BLOOD SPECIMEN / Unknown 11/13/2021 10:21 AM CDT Yoana Chicas APRN, NP CHEMISTRY ORDERABLE Zuleyka l Result [facility] [address] [address], * MAMMO DIGITAL SCREENING BI (05/29/2021 9:27 [...] ORDERABLE Final Re sult * PAP TEST (LOSS PREVENTION AGENT CYTOLOGY) (11/19/2019 8:43 AM CDT) Case Report Pap Smear Case: [id number] Authorizing Provider: Yoana Chicas APRN, NP Collected: 11/19/2019 08:43 AM Ordering Location: [facility] - Received: 11/19/2019 05:43 PM [facility] First Screen: Noah Hernandez Specimen: Cervical Thin Prep with HPV Test Inorganic Chemistry Professor Screening, Cervix 11/21/2019 2:[address] [facility] Interpretation Negative for intraepithelial lesion or malignant cells. 11/21/2019 2:[address] [facility] Specimen Adequacy Satisfactory for evaluation. Endocervical/trans formation zone component present. 11/21/2019 2:41 PM CDT [facility] LMP 07/05/16 11/21/2019 2:[address] [facility] Pap Disclaimer This specimen was screened by the [employer] Imaging System prior to manual review by a salvage mend worker and/or pathologist. The Pap test is a [...] (5): [id number] 11/21/2019 2:[address] [facility] Vaginal and cervical cytologic material (specimen) CERVIX UTERI STRUCTURE / Unknown 11/19/2019 8:43 AM CDT 11/19/2019 5:43 PM CDT Comment:Patient's last menst rual period was 07/05/2016. Yoana Chicas APRN, NP PATHOLOGY/CYTOLOGY ORDER ABLE Final Result [facility] [address] [place] [id number] from Last 3 Months or Most Recently Relevant to Health Maintenance Insurance [employer] OPEN ACCESS/CHOICE
--- OUTSIDE RECORDS SUMMARY | 2024-05-04 10:25 | XMS_ITS | Encounter Summary ---
Author Organization [facility] Address [address] [place] [address] Care Team Providers Care Community Director Name Role Phone Maria Garcia AVIATION PROJECT MANAGER Unavailable [phone] KosciuskoRachana egan AuD Unavailable [phone] Sonja Lemon MD Unavailable [phone] Anitra Albarran MD Unavailable [phone] Jackelyn Metcalf MD Primary Care Provider [phone] Jackelyn Metcalf MD Unavailable Maxi Massey MD Unavailable [phone] Olga Lui APRN [facility] Unavailable [phone] Encounter Details Date Type Department Care Team [...] in an abandoned building, in an overnight half-way, or couch-surfing.) Patient refused 01/31/2023 Are you [...] on file Legal Sex Female 6:22 AM FRONT LINE SUPERVISOR Gender Identity Not on file Sexual Orientation Not on file documented as of this encounter Plan of Treatment Upcoming Encounters Date Type Department Care Team (Late st Contact Info) Description 05/10/2024 3:00 PM FRONT LINE SUPERVISOR [facility] [address] [facility] [phone] [place] [address] [address] [id number] documented as of this encounter Visit Diagnoses Not on filedocumented in this encounter Care Teams Community Director Relationship Specialty Start [place] [address] [address] [phone] PCP - General Internal Medicine 11/21/23 Maria Garcia NP [address] [place], [place] 138725 Nurse Practitioner 09/28/22 Rachana Collins AuD [address] [place], [place] 128825 Facility Maintenance Manager Audiology 09/28/22 Sonja Lemon MD [address] [place], [place] 947[address] cable swager 07/26/23 Anitra Albarran MD [address] [place], [place] 363927 cable swager 09/26/23 [place] [address] [place] [address] Assigned PCP 12/28/23 Maxi Massey MD [address] [place] [address] cable swager 02/15/24 Olga Lui APRN ADAPTED PHYSICAL EDUCATION TEACHER [address] [address] Assigned OBGYN Provider 03/29/24 documented as of this encounter
--- OUTSIDE RECORDS SUMMARY | 2024-05-04 10:27 | XMS_ITS | Encounter Summary ---
Author Organization [facility] Address [facility] [place] [address] Care Team Providers Care Dispensary Clerk Name Role Phone Maria Garcia TECHNOLOGY TRAINING ASSOCIATE Unavailable [phone] Rachana Collins Unavailable [phone] Sonja Lemon MD Unavailable [phone] Anitra Albarran MD Unavailable [phone] Jackelyn Metcalf MD Primary Care Provider Jackelyn Metcalf MD Unavailable Maxi Massey MD Unavailable Olga Lui APRN VIDEO GAMES MECHANIC Unavailable [phone] Encounter Details Date Type Department Care Team (Late st Contact Info) Description 04/18/2024 Orders Only [facility] [address] [place] [address] Juju Cordero APRN VIDEO GAMES MECHANIC [address] [place] [address] Bacterial vaginosis (Primary Dx) Social [...] on file Legal Sex Female 6:22 AM CLOTHING PATTERN PREPARER Gender Identity Not on file Sexual Orientation Not on file documented as of this encounter Plan of Treatment Upcoming Encounters Date Type Department Care Team (Late st Contact Info) Description 05/10/2024 3:00 PM CLOTHING PATTERN PREPARER Office Visit [facility] [address] [place] [address] [place] [address] [place] [address] documented as of this encounter Visit Diagnoses Diagnosis Bacterial vaginosis- Primary Vaginitis and vulvovaginitis, unspecified documented in this encounter Care Teams Dispensary Clerk Relationship Specialty [place] [address] [address] [place], [place] [phone] PCP - General Internal Medicine 11/21/23 Maria Garcia NP [address]09 [place], [place] 652305 Nurse Practitioner 09/28/22 Rachana Collins AuD [address] [place], [place] 276575 Arts Administrator Audiology 09/28/22 Sonja Lemon MD [address] [place] [address] matcher leather parts 07/26/23 Anitra Albarran MD [address] [place] [address] matcher leather parts 09/26/23 [place] [address] [facility] [place] [address] Assigned PCP 12/28/23 Maxi Massey MD [address] [place] [address] matcher leather parts 02/15/24 Olga Lui APRN VIDEO GAMES MECHANIC [address] [place] [address] Assigned OBGYN Provider 03/29/24 documented as of this encounter
--- OUTSIDE RECORDS SUMMARY | 2024-05-04 10:27 | XMS_ITS | Encounter Summary ---
Author Organization [facility] Address [address] [place] [address] Care Team Providers Care Clam Bed Laborer Name Role Phone Maria Garcia INGOT HEADER Unavailable [phone] Rachana Collins AuD Unavailable [phone] Sonja Lemon MD Unavailable [phone] Anitra Albarran MD Unavailable [phone] Jackelyn Metcalf MD Primary Care Provider [phone] Jackelyn Metcalf MD Unavailable Maxi Massey MD Unavailable [phone] Olga Lui APRN [facility] Unavailable [phone] Encounter Details Date Type Department Care Team (Late st Contact Info) Description 04/20/2024 11:15 AM [facility] [address] [place] [address] UTI symptoms Social History Tobacco [...] on file Legal Sex Female 6:22 AM DIALYSIS NURSE Gender Identity Not on file Sexual Orientation Not on file documented as of this encounter Plan of Treatment Upcoming Encounters Date Type Department Care Team (Late st Contact Info) Description 05/10/2024 3:00 PM DIALYSIS NURSE Office Visit [facility] [address] [place] [address] [place] [address] [place] [address] documented as of this encounter Procedures Procedure Name Priority Date/Time Associated Diagnosis Comments UA MICROSCOPIC WITH REFLEX TO CULTURE Routine 04/20/2024 12:17 PM DIALYSIS NURSE UTI symptoms UA MACROSCOPIC WITH REFLEX TO MICRO AND CULTURE Routine 04/20/2024 12:17 PM DIALYSIS NURSE UTI symptoms documented in this encounter Results * (ABNORMAL) UA Microscopic with Reflex to Culture (04/20/2024 12:17 PM DIALYSIS NURSE) Bacteria Urine Few(A) None Seen /HPF [facility] 04/20/2024 12:31 PM DIALYSIS NURSE LABORATORY RBC Urine 0-2 0-2 /HPF /HPF [facility] 04/20/2024 12:31 PM DIALYSIS NURSE RM LABORATORY WBC Urine 0-5 0-5 /HPF /HPF K[facility]YA 04/20/2024 12:31 PM DIALYSIS NURSE LABORATORY Squamous Epithelials Urine Few(A) None Seen /LPF [facility] 04/20/2024 12:31 PM DIALYSIS NURSE LABORATORY Urine URINE SPECIMEN / Unknown Non-blood Collection / Unknown 04/20/2024 12:17 PM DIALYSIS NURSE 04/20/2024 12:17 PM DIALYSIS NURSE Narrative LABORATORY - 04/20/2024 12:31 PM DIALYSIS NURSE Urine Culture not indicated us Merle Dasilva BELLING MACHINE OPERATOR RAILROAD COMMISSIONER LAB - URINE ORDER MARÍA Final Result LABORATORY [facility] [address] [facility] (no room number, 1st floor of clinic) [place] [address], [facility] * (ABNORMAL) UA Macroscopic with reflex to Microscopic and Culture - Lab Collect (04/20/2024 12:17 PMCST) Color Urine Yellow Colorless, Straw, Light Yellow, Yellow 04/20/2024 12:24 PM DIALYSIS NURSE LABORATORY Appearance Urine Clear Clear 04/20/19 12:24 PM DIALYSIS NURSE LABORATORY Glucose Urine Negative Negative mg/dL 04/20/2024 12:24 PM DIALYSIS NURSE LABORATORY Bilirubin Urine Negative Negative 12:24 PM DIALYSIS NURSE LABORATORY Ketones Urine Negative Negative mg/dL 04/20/2024 12:24 PM DIALYSIS NURSE LABORATORY Specific [place] Urine 1.020 1.003 - 1.035 04/20/2024 12:24 PM DIALYSIS NURSE LABORATORY Blood Urine Trace(A) Negative 04/20/2024 12:24 PM DIALYSIS NURSE LABORATORY pH Urine 6.0 5.0 - 7.0 04/20/2024 12:24 PM DIALYSIS NURSE LABORATORY Protein Albumin Urine Negative Negative mg/dL 04/20/2024 12:24 PM DIALYSIS NURSE LABORATORY Urobilinogen Urine 0.2 0.2, 1.0 E.U./dL 04/20/2024 12:24 PM DIALYSIS NURSE LABORATORY Nitrite Urine Negative Negative 04/20/2024 12:24 PM DIALYSIS NURSE LABORATORY Leukocyte Esterase Urine Negative Negative 04/20/2024 12:24 PM DIALYSIS NURSE LABORATORY Urine URINE SPECIMEN / Unknown Non-blood Collection / Unknown 04/20/2024 12:17 PM DIALYSIS NURSE 04/20/2024 12:17 PM DIALYSIS NURSE us Merle Dasilva BELLING MACHINE OPERATOR RAILROAD COMMISSIONER LAB - URINE ORDER MARÍA Final Result LABORATORY [facility] [address] [facility] (no room number, 1st floor of clinic) [place] [address] documented in this encounter Visit Diagnoses Diagnosis UTI symptoms documented in this encounter Care Teams Clam Bed Laborer Relationship Specialty [place] [address] [place], [place] [phone] PCP - General Internal Medicine 11/21/23 Maria Garcia NP [address] [place] [address] [id number] Nurse Practitioner 09/28/22 Rachana Collins AuD [address] [place] [address] Bronc Breaker Audiology 09/28/22 Sonja Lemon MD [address] [place], [place] 79[address]77 bank consultant 07/26/23 Anitra Albarran MD [address] [place] [address] bank consultant 09/26/23 [place] [address] [place] [address] Assigned PCP 12/28/23 Maxi Massey MD [address] [place] [address] bank consultant 02/15/24 Olga Lui APRN RAILROAD COMMISSIONER [address] [address] Assigned OBGYN Provider 03/29/24 documented as of this encounter
--- OUTSIDE RECORDS SUMMARY | 2024-05-04 10:27 | XMS_ITS | Encounter Summary ---
Author Organization [facility] Address [facility] [place] [address] Care Team Providers Care Parking Cashier Name Role Phone Maria Garcia CLINICAL BUSINESS MANAGER Unavailable [phone] KarinaRachana egan AuD Unavailable [phone] Sonja Lemon MD Unavailable [phone] Anitra Albarran MD Unavailable [phone] Jackelyn Metcalf MD Primary Care Provider Jackelyn Metcalf MD Unavailable Maxi Massey MD Unavailable [phone] Olga Lui APRN [facility] Unavailable Encounter Details Date Type Department Care Team (Late st Contact Info) Description 2024 10:30 AM MANAGER PROVIDER RELATIONS Office Visit [facility] [address] [place] [address] [place] [address] [place] [address] Acute left-sided low back pain [...] file Legal Sex Female 6:22 AM MANAGER PROVIDER RELATIONS Gender Identity Not on file Sexual Orientation Not on file documented as of this encounter Last Filed Vital Signs Vital Sign Reading Time Taken Comments Blood Pressure 137/78 2024 8:57 AM MANAGER PROVIDER RELATIONS Pulse 79 2024 8:57 AM MANAGER PROVIDER RELATIONS Temperature 36.6 C (97.9 F) 2024 8:57 AM MANAGER PROVIDER RELATIONS Respiratory Rate 14 2024 8:57 AM MANAGER PROVIDER RELATIONS Oxygen Saturation 97% 2024 8:57 AM MANAGER PROVIDER RELATIONS Inhaled Oxygen Concentration - - Weight 58.1 kg (128 lb) 2024 8:57 AM MANAGER PROVIDER RELATIONS Height 165.1 cm (5' 5) 2024 8:57 AM MANAGER PROVIDER RELATIONS Body Mass Index 21.3 2024 8:57 AM MANAGER PROVIDER RELATIONS documented in this encounter Progress Notes * [...] normal. Signed Electronically by: Jackelyn Metcalf MD GER PROVIDER RELATIONS documented in this encounter Plan of Treatment Upcoming Encounters Date Type Department Care Team (Late st Contact Info) Description 05/10/2024 3:00 PM MANAGER PROVIDER RELATIONS Office Visit [facility] [address] [place] [address] [place]af [place] [id number] [place] [address] Scheduled Orders Name Type Priority Associated [...] sciatica documented in this encounter Care Teams Parking Cashier Relationship Specialty [place] [address] [place] [address] PCP - General Internal Medicine 11/21/23 Maria Garcia NP [address] [place] [address] 116985 Nurse Practitioner 09/28/22 Rachana Collins AuD [address] [place] [address] 259245 Earth Moving Technician Audiology 09/28/22 Sonja Lemon MD [address] [place] [address] furrier designer 07/26/23 Anitra Albarran MD [address] [place] [address] furrier designer 09/26/23 [place] [address] [place] [address] Assigned PCP 12/28/23 Maxi Massey MD [address] [place], [place] 606[address] furrier designer 02/15/24 Olga Lui APRN CNP [address] 171044 Assigned OBGYN Provider 03/29/24 documented as of this encounter
--- OUTSIDE RECORDS SUMMARY | 2024-05-04 10:27 | XMS_ITS | Encounter Summary ---
Author Organization [facility] Address [address] [place] [address] Care Team Providers Care General Pediatrician Name Role Phone Maria Garcia CHRO Unavailable [phone] Rachana Collins AuD Unavailable [phone] oSnja Lemon MD Unavailable [phone] Anitra Albarran MD Unavailable [phone] Jackelyn Metcalf MD Primary Care Provider [phone] Jackelyn Metcalf MD Unavailable Maxi Massey MD Unavailable + [phone] Olga Lui APRN [facility] Unavailable [phone] Encounter Details Date Type Department Care Team (Late st Contact Info) Description 04/18/2024 4:00 PM [facility] [address] [place] [address] Vaginal discharge Social History Tobacco [...] on file Legal Sex Female 6:22 AM VETERINARY INSPECTOR Gender Identity Not on file Sexual Orientation Not on file documented as of this encounter Plan of Treatment Upcoming Encounters Date Type Department Care Team (Late st Contact Info) Description 05/10/2024 3:00 PM VETERINARY INSPECTOR Office Visit [facility] [address] [facility] [place] [address] [place] [address] [place] [address] documented as of this encounter Procedures Procedure Name Priority Date/Time Associated Diagnosis Comments WET PREPARATION Routine 04/18/2024 3:39 PM VETERINARY INSPECTOR Vaginal discharge documented in this encounter Results * (ABNORMAL) Wet prep - lab collect (04/18/2024 3:39 PM VETERINARY INSPECTOR) Trichomonas Absent Absent KAVYA 04/18/2024 3:53 PM VETERINARY INSPECTOR [facility] Yeast Absent Absent KAVYA 04/18/2024 3:53 PM VETERINARY INSPECTOR [facility] Clue Cells Present(A) Absent KAVYA 04/18/2024 3:53 PM VETERINARY INSPECTOR [facility] WBCs/high power field None None KAVYA 04/18/2024 3:53 PM VETERINARY INSPECTOR [facility] Swab VAGINAL STRUCTURE / Unknown Non-blood Collection / Unknown 04/18/2024 3:39 PM VETERINARY INSPECTOR 04/18/2024 3:52 PM VETERINARY INSPECTOR us Jackelyn Metcalf MD LAB - MICRO GENERAL ORDERABLES F inal Result LABORATORY [facility] [place] [facility] [address] [facility] (no room number, 1st floor of clinic) [place] [address] documented in this encounter Visit Diagnoses Diagnosis Vaginal discharge Leukorrhea, not specified as infective documented in this encounter Care Teams General Pediatrician Relationship Specialty Start [place] [address] [place], [place] 1598668 PCP - General Internal Medicine 11/21/23 Maria Garcia NP [address] [place] [address] 276885 Nurse Practitioner 09/28/22 Rachana Collins AuD [address] [place] [address] Impersonator Character Audiology 09/28/22 Sonja Lemon MD [address] [place], [place] 104107 cloth booker 07/26/23 Anitra Albarran MD [address] [place] [address] cloth booker 09/26/23 [place] [address] [place] [address] Assigned PCP 12/28/23 Maxi Massey MD [address] [place] [address] cloth booker 02/15/24 Olga Lui APRN ELEMENTARY SPECIAL EDUCATION TEACHER [address] 141074 Assigned OBGYN Provider 03/29/24 documented as of this encounter
--- OUTSIDE RECORDS SUMMARY | 2024-05-04 10:27 | XMS_ITS | Encounter Summary ---
Author Organization [facility] Address [address] [place] [address] Care Team Providers Care Rotor Blade Installer Name Role Phone Maria Garcia DATABASE PROGRAMMER Unavailable [phone] Rachana Collins AuD Unavailable [phone] Sonja Lemon MD Unavailable [phone] Anitra Albarran MD Unavailable [phone] Jackelyn Metcalf MD Primary Care Provider [phone] Jackelyn Metcalf MD Unavailable Maxi Massey MD Unavailable + [phone] Olga Lui APRN [facility] Unavailable [phone] Encounter Details Date Type Department Care Team [...] in an abandoned building, in an overnight usp, or couch-surfing.) Patient refused 01/31/2023 Are you [...] on file Legal Sex Female 6:22 AM IDENTIFICATION AND RECORDS COMMANDER Gender Identity Not on file Sexual Orientation Not on file documented as of this encounter Plan of Treatment Upcoming Encounters Date Type Department Care Team (Late st Contact Info) Description 05/10/2024 3:00 PM IDENTIFICATION AND RECORDS COMMANDER [facility] [address] [facility] [phone] [place] [address] [address] [id number] documented as of this encounter Visit Diagnoses Not on filedocumented in this encounter Care Teams Rotor Blade Installer Relationship Specialty [place] [address] [address] [place] [phone] PCP - General Internal Medicine 11/21/23 Maria Garcia NP [address] [place], [place] 623235 Nurse Practitioner 09/28/22 Rachana Collins AuD [address] [place], [place] 668735 Field Engineer Audiology 09/28/22 Sonja Lemon MD [address] [facility], [place] 844917 cement block maker 07/26/23 Anitra Albarran MD [address] [facility], [place] 224767 cement block maker 09/26/23 [place] [address] [place] [address] Assigned PCP 12/28/23 Maxi Massey MD [address] [place] [address] cement block maker 02/15/24 Olga Lui APRN GRAPHITE DISK ASSEMBLER [address] 670684 Assigned OBGYN Provider 03/29/24 documented as of this encounter
--- OUTSIDE RECORDS SUMMARY | 2024-05-04 10:27 | XMS_ITS | Encounter Summary ---
Author Organization [facility] Address [address] [place] [address] Care Team Providers Care Reagent Tender Helper Name Role Phone Maria Garcia NP Unavailable [phone] Rachana Collins Unavailable [phone] Olga Lui APRN PARCEL POST CLERK Unavailable [phone] Samaria Cash PA-C Unavailable Samaria Cash PA-C Primary Care Provider [phone] Sonja Lemon MD Unavailable [phone] Anitra Albarran MD Unavailable [phone] Jackelyn Metcalf MD Primary Care Provider [phone] Jackelyn Metcalf MD Unavailable Solange Castellon PA-C Unavailable [phone] Maxi Massey MD Unavailable [phone] Olga Lui APRN PARCEL POST CLERK Unavailable [phone] Encounter Details Date Type Department Care Team (Late st Contact Info) Description 05/17/2023 [facility] [address] [place] [address] 700 [place] [address] Olga Lui APRN PARCEL POST CLERK [address] [place] [address] 700 [place], [place] 723664 Yeast infection of the vagina (Primary Dx) [...] on file Legal Sex Female 6:22 AM BANKER MASON Gender Identity Not on file Sexual Orientation Not on file documented as of this encounter Miscellaneous Notes * Telephone Encounter - Olga Lui APRN CNP - 05/17/2023 11:58 AM CDT Sent script documented in this encounter Plan of Treatment Upcoming Encounters Date Type Department Care Team (Late st Contact Info) Description 05/10/2024 3:00 PM BANKER MASON Office Visit [facility] [address] [place] [phone] [place] [address] [place], [place] 5858368 documented as of this encounter Visit Diagnoses Diagnosis Yeast infection of the vagina- Primary Candidiasis of vulva and vagina documented in this encounter Care Teams Reagent Tender Helper Relationship Specialty Start Date End Date Samaria Cash PA-C [address] [facility] [address] [place], [place] 782475 PCP - General Family Medicine 03/10/23 11/14/23 [place] [address] [place], [place] 5190768 PCP - General Internal Medicine 11/21/23 Maria Garcia NP [address] [place] [address] 095555 Nurse Practitioner 09/28/22 Rachana Collins AuD 9 [place], [place] 883295 Crane Manager Audiology 09/28/22 Olga Lui APRN CNP [address] [facility] [address] [place] [address] Assigned OBGYN Provider 12/25/2202/25 Samaria Cash PA-C [address] [facility] 200 [place] [address] Assigned PCP 02/26/23 12/27/23 Sonja Lemon MD [address] [place] [address] senior ui developer 07/26/23 Anitra Albarran MD [address] [place] [address] senior ui developer 09/26/23 [place] [address] [facility] [place] [address] Assigned PCP 12/28/23 Solange Castellon PA-C [address] [place] [address] Physician Cork Insulator Helper senior ui developer 02/15/24 02/15/24 Maxi Massey MD [address] [place] [address] senior ui developer 02/15/24 Olga Lui APRN PARCEL POST CLERK 606 [facility] 700 [place] [address] Assigned OBGYN Provider 03/29/24 documented as of this encounter
--- OUTSIDE RECORDS SUMMARY | 2024-05-04 10:27 | XMS_ITS | Encounter Summary ---
Author Organization [facility] Address [address] [place] [address] Care Team Providers Care Direct Service Provider Name Role Phone Maria Garcia CONVERTER SKIMMER Unavailable [phone] AxisRachana egan AuD Unavailable [phone] Sonja Lemon MD Unavailable [phone] Anitra Albarran MD Unavailable [phone] Jackelyn Metcalf MD Primary Care Provider [phone] Jackelyn Metcalf MD Unavailable Maxi Massey MD Unavailable [phone] Olga Lui APRN [facility] Unavailable [phone] Encounter Details Date Type Department Care Team (Latest Contact Info) Description 2024 Travel Social History Tobacco Use Types Packs/Day [...] on file Legal Sex Female 6:22 AM ADMINISTRATIVE CLERK Gender Identity Not on file Sexual Orientation Not on file documented as of this encounter Plan of Treatment Upcoming Encounters Date Type Department Care Team (Late st Contact Info) Description 05/10/2024 3:00 PM ADMINISTRATIVE CLERK Office [facility] [address] [facility] [phone] [place] [address] [address] [id number] documented as of this encounter Visit Diagnoses Not on filedocumented in this encounter Care Teams Direct Service Provider Relationship Specialty [place] [address] [address] [place] [phone] PCP - General Internal Medicine 11/21/23 Maria Garcia NP 909 [place], [place] 009075 Nurse Practitioner 09/28/22 Rachana Collins AuD 909 [place], [place] 097225 Log Peeler Audiology 09/28/22 Sonja Lemon MD [address] [place], [place] 249377 vocational rehabilitation technician 07/26/23 Anitra Albarran MD [address] [place], [place] 0[address] vocational rehabilitation technician 09/26/23 [place] [address] [place] [address] Assigned PCP 12/28/23 Maxi Massey MD [address] [place] [address] vocational rehabilitation technician 02/15/24 Olga Lui APRN STAGE TECHNICIAN [address] 453714 Assigned OBGYN Provider 03/29/24 documented as of this encounter
--- OUTSIDE RECORDS SUMMARY | 2024-05-04 10:27 | XMS_ITS | Encounter Summary ---
Author Organization [facility] Address [address] [place] [address] Care Team Providers Care State Manager Name Role Phone Maria Garcia NP Unavailable [phone] Rachana Collins Unavailable [phone] Olga Lui APRN CEMENT BOAT AND BARGE LOADER Unavailable [phone] Samaria Cash PA-C Unavailable Samaria Cash PA-C Primary Care Provider [phone] Sonja Lemon MD Unavailable [phone] Anitra Albarran MD Unavailable [phone] Jackelyn Metcalf MD Primary Care Provider [phone] Jackelyn Metcalf MD Unavailable Solange Castellon PA-C Unavailable [phone] Maxi Massey MD Unavailable [phone] Olga Lui APRN CEMENT BOAT AND BARGE LOADER Unavailable [phone] Encounter Details Date Type Department Care Team (Late st Contact Info) Description 05/23/2023 [facility] [address] [place] [address] 700 [place] [address] Olga Lui APRN CEMENT BOAT AND BARGE LOADER [address] [place] [address] 700 [place], [place] 358144 Social History Tobacco Use Types Packs/Day Years [...] on file Legal Sex Female 6:22 AM PALLET ASSEMBLER Gender Identity Not on file Sexual Orientation Not on file documented as of this encounter Plan of Treatment Upcoming Encounters Date Type Department Care Team (Late st Contact Info) Description 05/10/2024 3:00 PM PALLET ASSEMBLER Office Visit [facility] [address] [place] [phone] [place] [address] [address] [place] [id number] documented as of this encounter Visit Diagnoses Not on filedocumented in this encounter Care Teams State Manager Relationship Specialty Start Date End Date Samaria Cash PA-C [address] [place] [id number] PCP - General Family Medicine 03/10/23 11/14/23 [place] [address] [address] [place] [id number] PCP - General Internal Medicine 11/21/23 Maria Garcia NP 909 [place], [place] 827645 Nurse Practitioner 09/28/22 Rachana Collins AuD 9 [place], [place] 728225 Alumnae Secretary Audiology 09/28/22 Olga Lui APRN CNP [address] [place], [place] 721324 Assigned OBGYN Provider 12/25/2202/25 Samaria Cash PA-C [address] [place] [id number] Assigned PCP 02/26/23 12/27/23 Sonja Lemon MD [address] [place] [address] professional model 07/26/23 Anitra Albarran MD [address] [place] [address] professional model 09/26/23 [place] [address] [address] [facility] [place] [address] Assigned PCP 12/28/23 Solange Castellon PA-C [address] [place] [address] Physician Dredge Mechanic professional model 02/15/24 02/15/24 Maxi Massey MD [address] [place] [place], [place] 18[address]27 professional model 02/15/24 Olga Lui APRN CNP [address] 112264 Assigned OBGYN Provider 03/29/24 documented as of this encounter
--- OUTSIDE RECORDS SUMMARY | 2024-05-04 10:27 | XMS_ITS | Clinical Summary ---
Author Organization [facility] Address [address] [place] [address] Care Team Providers Care Window Clerk Name Role Phone Maria Garcia NP Unavailable [phone] Rachana Collins Unavailable [phone] Sonja Lemon MD Unavailable [phone] Anitra Albarran MD Unavailable [phone] Jackelyn Metcalf MD Primary Care Provider [phone] Jackelyn Metcalf MD Unavailable Maxi Massey MD Unavailable Olga Lui APRN [facility] Unavailable Allergies Active Allergy Reactions Criticality Noted Date Comments Adhesive Tape Rash Low 08/09/2023 Codeine GI Disturbance 06/17/2009 Other reaction(s): GI Upset, Nausea Only Latex Itching 09/27/2022 Medications ofloxacin (FLOXIN) 0.3 % otic solution Place 5 drops in ear(s). 04/06/19 24 Active ondansetron (ZOFRAN ODT) 4 MG ODT tabIndications: Nausea Take 1 tablet (4 mg) by mouth every 8 hours as needed for nausea 15 tablet 04/20/19 24 Active valACYclovir (VALTREX) 1000 mg tabletIndicatio ns:Cold sore Take 2 tablets (2,000 mg) by mouth every 12 hours 8 tablet 3 04/27/19 24 Active fluconazole (DIFLUCAN) 200 MG tabletIndicatio ns:Thrush Take 1 tablet (200 mg) by mouth daily. 10 tablet 11/11/19 24 Active Additional Information Patient taking differently:200 mg OralDAILY PRN, Reported on 11/15/2023 SUMAtriptan (IMITREX) 50 MG tabletIndicatio ns:Chronic migraine without aura without status migrainosus, not intractable Take 1 tablet (50 mg) by mouth at onset of headache for migraine. May repeat in 2 hours. Max 4 tablets/24 hours. 9 tablet 3 11/15/19 24 Active traZODone (DESYREL) 50 MG tabletIndicatio ns:PAULA (generalized anxiety disorder),TMJ (temporomandibu lar joint syndrome) Take 1.5 tablets (75 mg) by mouth daily. 135 tablet 3 11/15/19 24 Active FLUoxetine (PROZAC) 20 MG capsuleIndicati ons:PAULA (generalized anxiety disorder) Take 1 capsule (20 mg) by mouth daily. 90 capsule 3 11/15/19 24 Active omeprazole (PRILOSEC) [address] capsuleIndicati ons:Gastroesoph ageal reflux disease with esophagitis without hemorrhage Take 2 capsules (40 mg) by mouth daily. 180 capsule 11/15/19 24 Active albuterol (PROAIR HFA/PROVENTIL HFA/VENTOLIN HFA) 108 (90 Base) MCG/ACT inhalerIndicati ons:Wheezing Inhale 1-2 puffs into the lungs every 4 hours as needed for shortness of breath, wheezing or cough. 18 g 11 01/30/20 24 Active terconazole (TERAZOL 7) 0.4 % vaginal creamIndication s:Recurrent candidiasis of vagina Intravaginal: Insert 1 applicatorful (~5 g) once daily (at bedtime) for 7 days 35 g 02/15/20 24 Active terconazole (TERAZOL 7) 0.4 % vaginal creamIndication s:Vaginal discharge Place 1 applicator vaginally at bedtime. Insert 1 applicatorful (~5 g) once daily (at bedtime) for 7 days 45 g 4 04/12/19 25 Active predniSONE (DELTASONE) 20 MG tabletIndicatio ns:Acute left-sided low back pain with left-sided sciatica Take 1 tablet (20 mg) by mouth daily for 3 days. 3 tablet 05/02/19 25 025 Active cyclobenzaprine (FLEXERIL) 5 MG tabletIndicatio ns:Acute left-sided low back pain with left-sided sciatica Take 1 tablet (5 mg) by mouth 3 times daily as needed for muscle spasms. 15 tablet 05/03/19 25 Active gabapentin (NEURONTIN) 100 MG capsuleIndicati ons:Acute left-sided low back pain with left-sided sciatica Take 1 capsule (100 mg) by mouth daily as needed for neuropathic pain. Take 25 capsule 05/03/19 25 Active clotrimazole (MYCELEX) 10 MG lozengeIndicati ons:Thrush Place 1 lozenge (10 mg) inside cheek 5 times daily for 14 days. 70 lozenge 03/29/19 25 025 metroNIDAZOLE (FLAGYL) 500 MG tabletIndicatio ns:Bacterial vaginosis Take 1 tablet (500 mg) by mouth 2 times daily for 7 days. 14 tablet 04/18/19 25 025 cyclobenzaprine (FLEXERIL) 5 MG tabletIndicatio ns:Acute left-sided low back pain with left-sided sciatica Take 1 tablet (5 mg) by mouth 3 times daily as needed for muscle spasms. 15 tablet 05/02/19 25 025 Discontinu ed(Reorder (No AVS)) gabapentin (NEURONTIN) 100 MG capsuleIndicati ons:Acute left-sided low back pain with left-sided sciatica Take 1 capsule (100 mg) by mouth nightly as needed for neuropathic pain. 5 capsule 05/02/19 25 025 Discontinu ed(Reorder (No AVS)) Active Problems Problem Noted Date Diagnosed Date Mild intermittent asthma without complication Cold sore 02/22/2023 Gastroesophageal reflux dise ase with esophagitis without hemorrhage 02/22/2023 Chronic migraine without aur a without status migrainosus, not intractable 02/22/2023 TMJ (temporomandibular joint syndrome) PAULA (generalized anxiety disorder) 09/27/2022 09/27/2022 Encounters Date Type Department Care Team Description 2024 10:30 AM MASON HELPER [facility] [address] [facility] [place] [phone] Jackelyn Metcalf MD Acute left-sided low back pain with left-sided sciatica 2024 Travel 05/02/2024 Telephone [facility] [address] [place] [phone] Jackelyn Metcalf MD 04/24/2024 1:00 PM MASON HELPER Lab [facility] [address] [place] [phone] Vaginal discharge 04/24/2024 Travel 04/20/2024 11:15 AM MASON HELPER Lab [facility] [address] [place] [phone] UTI symptoms 04/20/2024 9:30 AM MASON HELPER E[facility] [address] [place] [phone] Merle Dasilva APRN LACQUER DIPPING MACHINE OPERATOR UTI (Entered automatically based on patien... 04/20/2024 Travel 04/18/2024 4:00 PM MASON HELPER Lab [facility] [address] [place] [phone] Vaginal discharge 04/18/2024 Orders Only [facility] [address] [place] [phone] Juju Cordero APRN [employer]ACQUER DIPPING MACHINE OPERATOR Bacterial vaginosis (Primary Dx) 04/18/2024 Travel 04/12/2024 8:00 AM MASON HELPER Lab [facility] [address] [place] [phone] Vaginal discharge 04/12/2024 Travel 04/11/2024 11:30 AM MASON HELPER E-Visit [facility] [address] [facility] [place] [phone] Jackelyn Metcalf MD Vaginal Discharge (Entered automatically b... 03/28/2024 2:15 PM MASON HELPER Lab [facility] [address] [facility] [place] [phone] Abdominal pain, left lower quadrant 03/28/2024 Travel 03/27/2024 3:30 PM MASON HELPER E-Visit [facility] [address] [place] [place] [phone] Jackelyn Metcalf MD Vaginal Discharge (Entered automatically b... 03/16/2024 1:00 PM MASON HELPER Lab [facility] [address] [facility] [place] [address] Vaginal discharge 03/16/2024 Travel 03/16/2024 Telephone [facility] [address] [facility] [place] [phone] Jackelyn Metcalf MD 03/13/2024 12:30 PM MASON HELPER E-Visit [facility] [address] [facility] [place] [address] Jackelyn Metcalf MD Thrush (Primary Dx) 03/13/2024 MyC Medical Advice [facility] [address] [place] [place] [phone] Jackelyn Metcalf MD 02/21/2024 10:15 AM MASON HELPER Lab [facility] [address] [facility] [place] [phone] Recurrent candidiasis of vagina 02/21/2024 Travel 02/15/2024 Telephone [facility] [address] [place] [place] [address] Jackelyn Metcalf MD Results 02/14/2024 1:30 PM MASON HELPER Lab [facility] [address] [facility] [place] [phone] Dysuria 02/14/2024 Travel from Last 3 Months Immunizations Name Administration Dates Next Due COVID-19 MONOVALENT 12+ (Pfizer) 02/13/2021,03/0 06/2020,04/17/2020 DT (PEDS <7y) 01/17/2006 Flu, Unspecified 01/08/2014,12/19/2012, 1 [id number] Novel Flu 02/19/2009 Influenza (H1N1) 02/19/2009 Influenza (IIV3) PF 01/07/2012, 8,12/12/2006,2005 Influenza Vaccine 18-64 (Flublok) 12/10/2022 Influenza Vaccine >6 months,quad, PF 11/20/2018, 11/14/2017,01/06/2016 Influenza Vaccine, 6+MO IM (QUADRIVALENT W/PRESERVATIVES) 12/08/2020,12/21/2016,12/10/2014,2013,12/19/2012,01/07/2012,12/21/2010,1 ,12/12/2006,01/04/2006 Influenza,INJ,MDCK,PF,Quad >6mo(Flucelvax) 01/17/2022,12/05/2019 Pneumococcal 20 valent Conju gate (Prevnar 20) 02/25/2023 TDAP (Adacel,Boostrix) 04/08/2016 Twinrix A/B 11/22/2023,06/10/2023,05/13/2023 Family History Medical History Relation Comments Rectal Cancer Father Relation Status Comments Father Social History Tobacco Use Types Packs/Day Years Used Date Smoking Tobacco: Former Cigarettes Passive Smoke Exposure: Past Smokeless Tobacco: Never Tobacco Cessation:Counseling Given: Not Answered Alcohol Use Standard Drinks/Week Comments Yes 0 [...] in an abandoned building, in an overnight longterm, or couch-surfing.) Patient refused 01/31/2023 Are you [...] on file Legal Sex Female 6:22 AM MASON HELPER Gender Identity Not on file Sexual Orientation Not on file Last Filed Vital Signs Vital Sign Reading Time Taken Comments Blood Pressure 137/78 2024 8:57 AM MASON HELPER Pulse 79 2024 8:57 AM MASON HELPER Temperature 36.6 C (97.9 F) 2024 8:57 AM MASON HELPER Respiratory Rate 14 2024 8:57 AM MASON HELPER Oxygen Saturation 97% 2024 8:57 AM MASON HELPER Inhaled Oxygen Concentration - - Weight 58.1 kg (128 lb) 2024 8:57 AM MASON HELPER Height 165.1 cm (5' 5) 2024 8:57 AM MASON HELPER Body Mass Index 21.3 2024 8:57 AM MASON HELPER Plan of Treatment Upcoming Encounters Date Type Department Care Team (Late st Contact Info) Description 05/10/2024 3:00 PM MASON HELPER Office [facility] [address] [facility] [phone] [place] [address] [facility] [phone] Health Maintenance Due Date Last Done Comments ADVANCE CARE PLANNING 1970 CT COLONOGRAPHY 1970 FIT 1970 FLEX SIG 1970 sDNA (Cologuard) 1970 COLONOSCOPY 1980 COLORECTAL CANCER SCREENING 1980 LUNG CANCER SCREENING 2020 ZOSTER IMMUNIZATION (1 of 2) 2020 COVID-19 Vaccine ( season) 2023 02/13/2021, 05/08/2020, 04/17/2020 YEARLY PREVENTIVE VISIT 12/18/2023 12/18/19 23, 11/13/2021, 11/16/2019 ANNUAL REVIEW OF HM ORDERS 02/23/2024 02/22/2023 PHQ-2 (once per calendar year) 2024 04/15/2023, 09/27/2022 ASTHMA ACTION PLAN 04/20/2024 04/20/2023 ASTHMA CONTROL TEST 06/19/2024 12/20/2023, 11/15/2023, 04/15/2023 MAMMO SCREENING 09/15/2025 09/16/2023, 08/05, 05/29/2021, Additional history exists HPV TEST 12/17/2025 12/17/2022, 11/19/2019 PAP 12/17/2025 12/17/2022, 11/19/2019 DTAP/TDAP/TD IMMUNIZATION (3 - Td or Tdap) 04/08/2026 04/08/2016, 01/17/2006 GLUCOSE 04/19/2026 04/19/2023, 02/19/2023 LIPID 04/19/2028 04/19/2023 Pneumococcal Vaccine: 50+ Years Completed 02/25/2023 HEPATITIS C SCREENING Completed 06/17/2023, 023 HEPATITIS B IMMUNIZATION Completed 024, 06/10/2023, 05/13/2023 INFLUENZA VACCINE Completed 12/12/2023, , 01/17/2022, Additional history exists HIV SCREENING Completed 03/01/2024, 06/05, 05/31/2023, Additional history exists HPV IMMUNIZATION Aged Out No longer e ligible based on patient's age to complete this topic MENINGITIS IMMUNIZATION Aged Out No l onger eligible based on patient's age to complete this topic Procedures Procedure Name Priority Date/Time Associated Diagnosis Comments WET PREPARATION Routine 04/24/2024 11:58 AM MASON HELPER Vaginal discharge UA MICROSCOPIC WITH REFLEX TO CULTURE Routine 04/20/2024 12:17 PM MASON HELPER UTI symptoms UA MACROSCOPIC WITH REFLEX TO MICRO AND CULTURE Routine 04/20/2024 12:17 PM MASON HELPER UTI symptoms WET PREPARATION Routine 04/18/2024 3:39 PM MASON HELPER Vaginal discharge WET PREPARATION Routine 04/12/2024 7:19 AM MASON HELPER Vaginal discharge MULTIPLEX VAGINAL PANEL BY PCR Routine 03/28/2024 1:56 PM MASON HELPER Abdominal pain, left lower quadrant WET PREPARATION Routine 03/16/2024 12:28 PM MASON HELPER Vaginal discharge LAB RESULT - HIM SCAN 03/05/2024 12:00 AM MASON HELPER FUNGAL OR YEAST CULTURE ROUTINE Routine 03/01/2024 1:57 PM MASON HELPER Acute vaginitis UROGENITAL UREAPLASMA AND MYCOPLASMA SPECIES BY PCR Routine 03/01/2024 1:57 PM MASON HELPER Chronic candidiasis of vulva and vagina HEMOGLOBIN A1C Routine 03/01/2024 1:57 PM MASON HELPER Chronic candidiasis of vulva and vagina HIV ANTIGEN ANTIBODY COMBO Routine 03/01/2024 1:57 PM MASON HELPER Encounter for screening for human immunodeficiency virus (HIV) MULTIPLEX VAGINAL PANEL BY PCR Routine 02/21/2024 9:36 AM MASON HELPER Recurrent candidiasis of vagina MULTIPLEX VAGINAL PANEL BY PCR Routine 02/14/2024 1:11 PM MASON HELPER Dysuria UA MICROSCOPIC WITH REFLEX TO CULTURE Routine 02/14/2024 1:11 PM MASON HELPER Dysuria UA MACROSCOPIC WITH REFLEX TO MICRO AND CULTURE Routine 02/14/2024 1:11 PM MASON HELPER Dysuria MA SCREENING BILATERAL W/ EVERETT Routine 09/16/2023 12:15 PM CDT Visit for screening mammogram HEPATITIS C ANTIBODY Routine 06/17/2023 12:02 PM CDT Screen for STD (sexually transmitted disease) ASTHMA ACTION PLAN Routine 04/20/2023 10 :51 AM MASON HELPER COMPREHENSIVE METABOLIC PANEL Routine 04/19/2023 7:51 AM MASON HELPER Routine history and physical examination of adult LIPID REFLEX TO DIRECT LDL PANEL Routine 04/19/2023 7:51 AM MASON HELPER Screening for hyperlipidemia Routine history and physical examination of adult GYNECOLOGIC CYTOLOGY Routine 12/17/2022 3:25 PM CDT Encounter for gynecological examination without abnormal finding HPV HIGH RISK TYPES DNA CERVICAL Routine 12/17/2022 3:25 PM CDT Encounter for gynecological examination without abnormal finding from Last 3 Months or Most Recently Relevant to Health Maintenance Results * (ABNORMAL) Wet prep - lab collect (04/24/2024 11:58 AM MASON HELPER) Only the most recent of4 resultswithin the time period is included. Trichomonas Absent Absent KAVYA 04/24/2024 12:04 PM MASON HELPER RM LABORATORY Yeast Absent Absent KAVYA 04/24/2024 12:04 PM MASON HELPER RM LABORATORY Clue Cells Absent Absent KAVYA 04/24/2024 12:04 PM MASON HELPER RM LABORATORY WBCs/high power field 2+(A) None KAVYA 04/24/2024 12:04 PM MASON HELPER RM LABORATORY Swab VAGINAL STRUCTURE / Unknown Non-blood Collection / Unknown 04/24/2024 11:58 AM MASON HELPER 04/24/2024 11:58 AM MASON HELPER us Jackelyn Metcalf MD LAB - MICRO GENERAL ORDERABLES F inal Result Performing Organization Address City/[facility]/ZIP Co de Phone Number LABORATORY [facility] [address] [facility] (no room number, [facility] [place] [address], [place] * (ABNORMAL) UA Microscopic with Reflex to Culture (04/20/2024 12:17 PM MASON HELPER) Only the most recent of2 resultswithin the time period is included. Bacteria Urine Few(A) None Seen /HPF KAVYA 04/20/2024 12:31 PM MASON HELPER LABORATORY RBC Urine 0-2 0-2 /HPF /HPF KAVYA 04/20/2024 12:31 PM MASON HELPER LABORATORY WBC Urine 0-5 0-5 /HPF /HPF KAVYA 04/20/2024 12:31 PM MASON HELPER LABORATORY Squamous Epithelials Urine Few(A) None Seen /LPF KAVYA 04/20/2024 12:31 PM MASON HELPER LABORATORY Urine URINE SPECIMEN / Unknown Non-blood Collection / Unknown 04/20/2024 12:17 PM MASON HELPER 04/20/2024 12:17 PM MASON HELPER Narrative LABORATORY - 04/20/2024 12:31 PM MASON HELPER Urine Culture not indicated us Merle Dasilva APRN LACQUER DIPPING MACHINE OPERATOR LAB - URINE ORDER MARÍA Final Result Performing Organization Address City/[facility]/ZIP Co de Phone Number LABORATORY [facility] [address] [facility] (no room number, [facility]st [facility]) [place] [phone], [place] * (ABNORMAL) UA Macroscopic with reflex to Microscopic and Culture - Lab Collect (04/20/2024 12:17 PMCST) Only the most recent of2 resultswithin the time period is included. Color Urine Yellow Colorless, Straw, Light Yellow, Yellow 04/20/2024 12:24 PM MASON HELPER LABORATORY Appearance Urine Clear Clear 04/20/19 25 12:24 PM MASON HELPER LABORATORY Glucose Urine Negative Negative mg/dL 04/20/2024 12:24 PM MASON HELPER LABORATORY Bilirubin Urine Negative Negative 12:24 PM MASON HELPER LABORATORY Ketones Urine Negative Negative mg/dL 04/20/2024 12:24 PM MASON HELPER LABORATORY Specific [place] Urine 1.020 1.003 - 1.035 04/20/2024 12:24 PM MASON HELPER LABORATORY Blood Urine Trace(A) Negative 04/20/2024 12:24 PM MASON HELPER LABORATORY pH Urine 6.0 5.0 - 7.0 04/20/2024 12:24 PM MASON HELPER LABORATORY Protein Albumin Urine Negative Negative mg/dL 04/20/2024 12:24 PM MASON HELPER LABORATORY Urobilinogen Urine 0.2 0.2, 1.0 E.U./dL 04/20/2024 12:24 PM MASON HELPER LABORATORY Nitrite Urine Negative Negative 04/20/2024 12:24 PM MASON HELPER LABORATORY Leukocyte Esterase Urine Negative Negative 04/20/2024 12:24 PM MASON HELPER LABORATORY Urine URINE SPECIMEN / Unknown Non-blood Collection / Unknown 04/20/2024 12:17 PM MASON HELPER 04/20/2024 12:17 PM MASON HELPER us Merle Dasilva APRN LACQUER DIPPING MACHINE OPERATOR LAB - URINE ORDER MARÍA Final Result LABORATORY [facility] [address] [facility] (no room number, 1st floor of clinic) [place] [address], [facility] * Multiplex Vaginal Panel by PCR (03/28/2024 1:56 PM MASON HELPER) Only the most recent of3 resultswithin the time period is included. Bacterial Vaginosis Organism DNA Negative Negative 03/28/2024 8:57 PM MASON HELPER [facility] Comment: Indicator DNA target(s) related to bacterial vaginosis organisms is/are not detected. Organisms associated with bacterial vaginosis that are targeted in this assay include Atopobium spp., Bacterial Vaginosis-Associated Bacterium-2, and Megasphaera-1. Detected organisms are not reported individually. Rita Group DNA Not Detected Not Detected 03/28/2024 8:57 PM MASON HELPER [facility] Comment:Rita group specie s detected by this target include C. albicans, C. tropicalis, C. parapsilosis, C. dubliniensis. Rita glabrata / Rita krusei DNA Not Detected Not Detected 03/28/2024 8:57 PM MASON HELPER [facility] Trichomonas vaginalis DNA Not Detected Not Detected 03/28/2024 8:57 PM MASON HELPER [facility] Swab VAGINAL STRUCTURE / Unknown Non-blood Collection / Unknown 03/28/2024 1:56 PM MASON HELPER 03/28/2024 1:56 PM MASON HELPER Narrative [facility] - 03/28/2024 8:57 PM MASON HELPER The Xpert Xpress MVP test, performed on the [employer] Systems, is an automated, qualitative in [...] patient information to determine the disease status. us Jackelyn Metcalf MD LAB - MICRO GENERAL ORDERABLES F inal Result [facility] Inf. Diseases Diag. Lab [address] [facility][[address]], [address] [place] [address], [facility] * Lab Result - HIM Scan (03/05/2024 12:00 AM MASON HELPER) 03/05/2024 Provider Outside NON-BEAKER LAB TESTING Final Result * HIV Antigen Antibody Combo [place] (03/01/2024 1:57 PM MASON HELPER) HIV Antigen Antibody Combo Nonreactive Nonreactive 03/01/2024 10:06 PM MASON HELPER U LABORATORY Comment:Negative HIV-1 p24 a ntigen and HIV-1/2 antibody screening test results usually indicate the absence of HIV-1 and HIV-2 infection. However, such negative results do not rule-out acute HIV infection. If acute HIV-1 or HIV-2 infection is suspected, detection of HIV-1 or HIV-2 RNA is recommended. This result is obtained using the Abraham Elecsys HIV Duo method on the anuradha e801 immunoassay analyzer. Blood BLOOD SPECIMEN / Unknown Client Draw / Unknown 03/01/2024 1:57 PM MASON HELPER 03/01/2024 8:41 PM MASON HELPER Darcie Flower MD LAB - BLOOD ORDERABLES Zuleyka bone Result LABORATORY [facility] [place] [facility] [address] [facility], [address] [phone] * Urogenital Ureaplasma and Mycoplasma Species by PCR (03/01/2024 1:57 PM MASON HELPER) Ureaplasma parvum by PCR Not Detected 03/04/2024 2:44 AM MASON HELPER [facility] Ureaplasma urealyticum by PCR Not Detected 03/04/2024 2:44 AM MASON HELPER [facility] Mycoplasma hominis by PCR Not Detected 03/04/2024 2:44 AM MASON HELPER [facility] Mycoplasma genitalium by PCR Not Detected 03/04/2024 2:44 AM MASON HELPER [facility] Comment: INTERPRETIVE INFORMATION: Urogenital Ureaplasma and Mycoplasma Species by PCR A negative result does not rule out the presence of PCR inhibitors in the patient specimen or test-specific nucleic acid in concentrations below the level of detection by this test. This test was developed and its performance characteristics determined by [facility]. It has not been cleared or approved by the [place] Food and Drug Administration. This test was performed in a CLIA certified laboratory and is intended for clinical purposes. Performed By: [facility] [address] [place] [address] Principal Statistical Scientist: Kendell De La Rosa MD, PhD CLIA Number: [id number] Swab ENDOCERVICAL STRUCTURE / Unknown Non-blood Collection / Unknown 03/01/2024 1:57 PM MASON HELPER 03/01/2024 3:35 PM MASON HELPER Darcie Flower MD LAB - MICRO GENERAL ORDERAB LES Final Result [address] [phone] [phone] * Fungal or Yeast Culture Routine (03/01/2024 1:57 PM MASON HELPER) Pathologist [facility] Culture No Growth KAVYA 03/05/2024 7:38 AM MASON HELPER [facility] Swab ENDOCERVICAL STRUCTURE / Unknown Non-blood Collection / Unknown 03/01/2024 1:57 PM MASON HELPER 03/01/2024 8:38 PM MASON HELPER Darcie Flower MD LAB - MICRO GENERAL ORDERAB LES Final Result [facility] Inf. Diseases Diag. Lab [address] [facility][[address]], [address] [place] [address] * (ABNORMAL) Hemoglobin A1c (03/01/2024 1:57 PM MASON HELPER) Estimated Average Glucose 120(H) <117 mg/dL 03/01/2024 9:11 PM MASON HELPER [facility] Hemoglobin A1C 5.8(H) <5.7 % 03/01/2024 9:11 PM MASON HELPER [facility] Comment: Normal <5.7% Prediabetes 5.7-6.4% Diabetes 6.5% or higher Note: Adopted from ADA consensus guidelines. Blood BLOOD SPECIMEN / Unknown Client Draw / Unknown 03/01/2024 1:57 PM MASON HELPER 03/01/2024 8:41 PM MASON HELPER Darcie Flower MD LAB - BLOOD ORDERABLES Z[place]ka bone Result LABORATORY [facility] [place] [facility] [address] [facility] [address] [facility], [address] [place] [phone] * MA Screening Bilateral w/ [place] (09/16/2023 12:15 PM CDT) Anatomical Region Laterality Modality Breast Bilateral Mammography Impressions 09/19/2023 7:54 AM CDT IMPRESSION: ACR BI-RADS Category 1: Negative BREAST CANCER SCREENING RECOMMENDATION: Routine yearly mammography beginning at age 40 or as discussed with your provider. The results and recommendations of this examination will be communicated to the patient. Kevin Ramirez MD Narrative 09/19/2023 7:54 AM CDT BILATERAL FULL FIELD DIGITAL SCREENING MAMMOGRAM WITH TOMOSYNTHESIS Performed on: 09/16/23 Compared to: 08/20/2022, 05/29/2021, and 02/08/2019 Technique: This study was evaluated with the assistance of Computer-Aided Detection. Breast Tomosynthesis was used in interpretation. Findings: The breasts are heterogeneously dense, which may obscure small masses. There is no radiographic evidence of malignancy. Samaria Cash PA-C IM MAMMOGRAPHY ORDERABLES Final Result * Hepatitis C antibody (06/17/2023 12:02 PM CDT) Hepatitis C Antibody Nonreactive Nonreactive 06/17/2023 10:41 PM CDT LABORATORY Comment:A nonreactive screen ing test result does not exclude the possibility of exposure to or infection with HCV. Nonreactive screening test results in individuals with prior exposure to HCV may be due to antibody levels below the limit of detection of this assay or lack of reactivity to the HCV antigens used in this assay. Patients with recent HCV infections (<3 months from time of exposure) may have false- negative HCV antibody results due to the time needed for seroconversion (average of 8 to 9 weeks). Blood BLOOD SPECIMEN / Unknown Venipuncture / Unknown 06/17/2023 12:02 PM CDT 06/17/2023 12:02 PM CDT Olga Lui ELECTRIC PILE DRIVER OPERATOR LACQUER DIPPING MACHINE OPERATOR LAB - BLOOD ORDERABLE S Final Result [facility] [place] Core Lab [address] [facility], [address] [place] [address] * (ABNORMAL) Lipid panel reflex to direct LDL Fasting (04/19/2023 7:51 AM MASON HELPER) Cholesterol 210(H) <200 mg/dL 04/19/2023 6:26 PM MASON HELPER [facility] Triglycerides 142 <150 mg/dL 04/19/2023 6:26 PM MASON HELPER [facility] Direct Measure HDL 39(L) >=50 mg/dL 04/19/2023 6:26 PM MASON HELPER [facility] LDL Cholesterol Calculated 143(H) <=100 mg/dL 04/19/2023 6:26 PM MASON HELPER [facility] Non HDL Cholesterol 171(H) <130 mg/dL 04/19/2023 6:26 PM MASON HELPER [facility] Patient Fasting > 8hrs? Yes 04/19/2023 6:26 PM MASON HELPER [facility] Blood BLOOD SPECIMEN / Unknown Venipuncture / Unknown 04/19/2023 7:51 AM MASON HELPER 04/19/2023 7:51 AM MASON HELPER Narrative [facility] - 04/19/2023 6:26 PM MASON HELPER Cholesterol Desirable: <200 mg/dL Triglycerides Normal: Less than 150 mg/dL Borderline High: 150-199 mg/dL High: 200-499 mg/dL Very High: Greater than or equal to 500 mg/dL Direct Measure HDL Female: Greater than or equal to 50 mg/dL Male: Greater than or equal to 40 mg/dL LDL Cholesterol Desirable: <100mg/dL Above Desirable: 100-129 mg/dL Borderline High: 130-159 mg/dL High: 160-189 mg/dL Very High: >= 190 mg/dL Non HDL Cholesterol Desirable: 130 mg/dL Above Desirable: 130-159 mg/dL Borderline High: 160-189 mg/dL High: 190-219 mg/dL Very High: Greater than or equal to 220 mg/dL Samaria Cash PA-C LAB - BLOOD ORDERABLES Fin al Result [facility] [place] Core Lab [address] [facility], [address] [place] [address], [facility] [phone] * Comprehensive metabolic panel (BMP + Alb, Alk Phos, ALT, AST, Total. Bili, TP) (04/19/2023 7:51 AM MASON HELPER) Pathologist [facility] Sodium 142 135 - 145 mmol/L 04/19/2023 6:26 PM MASON HELPER [facility] Comment:Reference intervals for this test were updated on 11/30/2022 to more accurately reflect our healthy population. There may be differences in the flagging of prior results with similar values performed with this method. Interpretation of those prior results can be made in the context of the updated reference intervals. Potassium 4.1 3.4 - 5.3 mmol/L 04/19/2023 6:26 PM MASON HELPER [facility] Carbon Dioxide (CO2) 28 22 - 29 mmol/L 04/19/2023 6:26 PM MASON HELPER [facility] Anion Gap 10 7 - 15 mmol/L 04/19/2023 6:26 PM MASON HELPER [facility] Urea Nitrogen 15.1 6.0 - 20.0 mg/dL 04/19/2023 6:26 PM MASON HELPER [facility] Creatinine 0.72 0.51 - 0.95 mg/dL 04/19/2023 6:26 PM MASON HELPER [facility] GFR Estimate >90 >60 mL/min/1. 73m2 04/19/2023 6:26 PM MASON HELPER [facility] Calcium 9.7 8.6 - 10.0 mg/dL 04/19/2023 6:26 PM MASON HELPER [facility] Chloride 104 98 - 107 mmol/L 04/19/2023 6:26 PM MASON HELPER [facility] Glucose 96 70 - 99 mg/dL 04/19/2023 6:26 PM MASON HELPER [facility] Alkaline Phosphatase 47 40 - 150 U/L 04/19/2023 6:26 PM MASON HELPER [facility] Comment:Reference intervals for this test were updated on 01/18/2023 to more accurately reflect our healthy population. There may be differences in the flagging of prior results with similar values performed with this method. Interpretation of those prior results can be made in the context of the updated reference intervals. AST 24 0 - 45 U/L 04/19/2023 6:26 PM MASON HELPER [facility] Comment:Reference intervals for this test were updated on 08/16/2022 to more accurately reflect our healthy population. There may be differences in the flagging of prior results with similar values performed with this method. Interpretation of those prior results can be made in the context of the updated reference intervals. ALT 15 0 - 50 U/L 04/19/2023 6:26 PM MASON HELPER [facility] Comment:Reference intervals for this test were updated on 08/16/2022 to more accurately reflect our healthy population. There may be differences in the flagging of prior results with similar values performed with this method. Interpretation of those prior results can be made in the context of the updated reference intervals. Protein Total 7.0 6.4 - 8.3 g/dL 04/19/2023 6:26 PM MASON HELPER [facility] Albumin 4.3 3.5 - 5.2 g/dL 04/19/2023 6:26 PM MASON HELPER [facility] Bilirubin Total 0.3 <=1.2 mg/dL 04/19/2023 6:26 PM MASON HELPER [facility] Blood BLOOD SPECIMEN / Unknown Venipuncture / Unknown 04/19/2023 7:51 AM MASON HELPER 04/19/2023 7:51 AM MASON HELPER us Samaria Cash PA-C LAB - BLOOD ORDERABLES Fin al Result [facility] [place] Core Lab [address] [facility], [address] [place] [address], [facility] [phone] * Pap imaged thin layer screen with HPV - recommended age 30 - 65 years (select HPV order below) (12/17/2022 3:25 PM CDT) Interpretation Negative for Intraepithelial Lesion or Malignancy (NILM) 12/21/2022 3:29 PM CDT [facility] Comment Papanicolaou Test Limitations: Cervical cytology is a screening test with limited sensitivity, and regular screening is critical for cancer prevention. Pap tests are primarily effective for the diagnosis/prevent ion of squamous cell carcinoma, not adenocarcinoma or other cancers. 12/21/2022 3:29 PM CDT [facility] Specimen Adequacy Satisfactory for evaluation, endocervical/ferguson sformation zone component present 12/21/2022 3:29 PM CDT [facility] Clinical Information none 12/21/2022 3:29 PM CDT [facility] Reflex Testing Yes regardless of result 12/21/2022 3:29 PM CDT [facility] Previous Abnormal? No 12/21/2022 3:29 PM CDT [facility] Performing Labs The technical component of this testing was completed at [facility] 12/21/2022 3:29 PM CDT [facility] Brushing CERVIX UTERI STRUCTURE / Unknown Non-blood Collection / Unknown 12/17/2022 3:25 PM CDT 12/17/2022 3:54 PM CDT Comment:Pap imaged thin laye r screen with HPV - recommended age 30 - 65 yearsAnswer REQUIRED pap questions below:LMP (date): No LMP recorded. Patient has had an ablation.PAP SOURCE: CervicalPREVIOUS PAP RESULTS: No results found for: PAPPERTINENT CLINICAL HISTORY: NONE Olga RUIZ Final Result [facility] Specialty Lab [address] [facility] [address], [address] [place] [address], [facility] [phone] * HPV High Risk Types DNA Cervical (12/17/2022 3:25 PM CDT) Other HR HPV Negative Negative 12/23/2022 1:22 PM CDT [facility] HPV16 DNA Negative Negative 12/23/2022 1:22 PM CDT [facility] HPV18 DNA Negative Negative 12/23/2022 1:22 PM CDT [facility] FINAL DIAGNOSIS This patient's sample is negative for HPV DNA. This test was developed and its performance characteristics determined by the [facility], Molecular Diagnostics Laboratory. It has not been cleared or approved by the FDA. The laboratory is regulated under CLIA as qualified to perform high-complexity testing. This test is used for clinical purposes. It should not be regarded as investigational or for research. METHODOLOGY: The Abraham Anuradha 4800 system uses automated extraction, simultaneous amplification of HPV (L1 region) and beta-globin, followed by real time detection of fluorescent labeled HPV and beta globin using specific oligonucleotide probes. The test specifically identifies types HPV 16 DNA and HPV 18 DNA while concurrently detecting the rest of the high risk types (31, 33, 35, 39, 45, 51, 52, 56, 58, 59, 66 or 68). COMMENTS: This test is not intended for use as a screening device for woman under age 30 with normal cervical cytology. Results should be correlated with cytologic and histologic findings. Close clinical followup is recommended. 12/23/2022 1:22 PM CDT [facility] Brushing CERVIX UTERI STRUCTURE / Unknown Non-blood Collection / Unknown 12/17/2022 3:25 PM CDT 12/22/2022 10:16 AM CDT Olga Lui APRN LACQUER DIPPING MACHINE OPERATOR LAB - BLOOD ORDERABLE S Final Result [facility] Molecular Diagnostics [address] [facility], [address] [place] [address], [facility] [phone] from Last 3 Months or Most Recently Relevant to Health Maintenance Insurance [facility] [place] [facility] [place] [facility] Care Teams Window Clerk Relationship Specialty [place] [address] [place] [address] PCP - General Internal Medicine 11/21/23 Maria Garcia NP [address] [place] [address] [id number] Nurse Practitioner 09/28/22 Rachana Collins AuD [address] [place] [address] [id number] Commercial Interior Designer Audiology 09/28/22 Sonja Lemon MD [address] [place] [address] nut tightener 07/26/23 Anitra Albarran MD [address] [place] [address] nut tightener 09/26/23 [place] [address] [facility] [place] [address] Assigned PCP 12/28/23 Maxi Massey MD [address] [place] [address] nut tightener 02/15/24 Olga Lui APRN LACQUER DIPPING MACHINE OPERATOR [address] [address] Assigned OBGYN Provider 03/29/24
--- OUTSIDE RECORDS SUMMARY | 2024-05-04 10:27 | XMS_ITS | Encounter Summary ---
Author Organization [place] Address [address] [place] [address] Care Team Providers Care Dip Tube Assembler Machine Name Role Phone Maria Garcia MANAGER SPECIALTY Unavailable [phone] Pencil BluffRachana egan AuD Unavailable [phone] Sonja Lemon MD Unavailable [phone] Anitra Albarran MD Unavailable [phone] Jackelyn Metcalf MD Primary Care Provider [phone] Jackelyn Metcalf MD Unavailable Maxi Massey MD Unavailable [phone] Olga Lui APRN [facility] Unavailable [phone] Encounter Details Date Type Department Care Team [...] on file Legal Sex Female 6:22 AM IGNITION SPECIALIST Gender Identity Not on file Sexual Orientation Not on file documented as of this encounter Plan of Treatment Upcoming Encounters Date Type Department Care Team (Late st Contact Info) Description 05/10/2024 3:00 PM IGNITION SPECIALIST [facility] [address] [facility] [id number] [place] [address] [address] [phone] documented as of this encounter Visit Diagnoses Not on filedocumented in this encounter Care Teams Dip Tube Assembler Machine Relationship Specialty Start [place] [address] [address] [phone] PCP - General Internal Medicine 11/21/23 Maria Garcia NP 909 [place], [place] 199475 Nurse Practitioner 09/28/22 Rachana Collins AuD [address] [place], [place] [phone] Tank Erector Audiology 09/28/22 Sonja Lemon MD [address] [place], [place] 647757 car body mechanic 07/26/23 Anitra Albarran MD [address] [place], [place] 897877 car body mechanic 09/26/23 [place] [address] [place] [address] Assigned PCP 12/28/23 Maxi Massey MD [address] [place] [address] car body mechanic 02/15/24 Olga Lui APRN RAM PRESS OPERATOR [address] 788904 Assigned OBGYN Provider 03/29/24 documented as of this encounter
--- OUTSIDE RECORDS SUMMARY | 2024-05-04 10:27 | XMS_ITS | Clinical Summary ---
Author Organization [facility] [facility] Address [address] [place] [address] Care Team Providers Care Setter Off Name Role Phone Doreen Degroot MD Primary [...] Type Department Care Team Description 05/01/2024 Telephone [facility] [address] [place] [address] Rob Melgoza MD Ear Pain/problem [...] on file Legal Sex Female 8:00 AM HEARING STENOGRAPHER Gender Identity Not on file Sexual Orientation Not on file Obstetrics History Last Filed Vital Signs Vital Sign Reading Time Taken Comments Blood Pressure 110/70 03/21/2020 1:01 PM HEARING STENOGRAPHER Pulse 79 07/18/2018 11:48 AM CDT Temperature [...] 04/17/2020 Influenza for age 50-64 11/06/2023 Insurance [facility] Advance Directives * Full Code (Latest Code Status on File) Date Activated Date Inactivated Comments 07/26/2016 9:02 AM 07/26/2016 4:28 PM Care Teams Setter Off Relationship Specialty Start Date End Date Doreen Degroot MD [facility] - General 01/13/10
--- OUTSIDE RECORDS SUMMARY | 2024-05-04 10:27 | XMS_ITS | Encounter Summary ---
Author Organization [place] Address [address] [place] [address] Care Team Providers Care Boom Crane Operator Name Role Phone Maria Garcia NP Unavailable [phone] Rachana Collins Unavailable [phone] Olga Lui APRN WAITSTAFF CAPTAIN Unavailable [phone] Samaria Cash PA-C Unavailable [phone] Samaria CashC Primary Care Provider [phone] Sonja Lemon MD Unavailable [phone] Anitra Albarran MD Unavailable [phone] Jackelyn Metcalf MD Primary Care Provider [phone] Jackelyn Metcalf MD Unavailable Solange Castellon PA-C Unavailable [phone] Maxi Massey MD Unavailable [phone] Olga Lui APRN WAITSTAFF CAPTAIN Unavailable [phone] Reason for Visit * Reason Onset Date Comments Refill Request 06/05/2023 Encounter Details Date Type Department Care Team (Late st Contact Info) Description 06/05/2023 Jyoti Hampton [address] [phone] Samaria Cash PA-C [address] [facility] [address] [place] [address] Refill Request Social History Tobacco Use Types Packs/Day [...] on file Legal Sex Female 6:22 AM PARACHUTIST/COMBATANT DIVER QUALIFIED Gender Identity Not on file Sexual Orientation Not on file documented as of this encounter Miscellaneous Notes * Telephone Encounter - Tarah Yepez PA-C - 06/06/2023 10:40 AM CDT It does not look like we have prescribed nystatin for patient. What symptoms is she having? Perhapsvisit is appropriate? Or E-visit? documented in this encounter Plan of Treatment Upcoming Encounters Date Type Department Care Team (Late st Contact Info) Description 05/10/2024 3:00 PM PARACHUTIST/COMBATANT DIVER QUALIFIED Office Visit [facility] [address] [place] [address] [place] [address] [place], [place] [phone] documented as of this encounter Visit Diagnoses Not on filedocumented in this encounter Care Teams Boom Crane Operator Relationship Specialty Start Date End Date Samaria Cash PA-C [address] [phone] PCP - General Family Medicine 03/10/23 11/14/23 [place] [address] [place], [place] [phone] PCP - General Internal Medicine 11/21/23 Maria Garcia NP [address] [place] [address] 311785 Nurse Practitioner 09/28/22 Rachana Collins AuD [address] [place] [address] [id number] Jewel Blocker And Sawyer Audiology 09/28/22 Olga Lui APRN WAITSTAFF CAPTAIN [address] [place] [address] Assigned OBGYN Provider 12/25/2202/25 Samaria Cash PA-C [address] [facility] [address] [facility] 200 [place], [place] 427325 Assigned PCP 02/26/23 12/27/23 Sonja Lemon MD [address] [place], [place] 759[address] cyber security systems engineer 07/26/23 Anitra Albarran MD [address] [place], [place] 848757 cyber security systems engineer 09/26/23 [place] [address] [facility] [address] Assigned PCP 12/28/23 Solange Castellon PA-C [address] [place], [place] 602835 Physician Technology Professional cyber security systems engineer 02/15/24 02/15/24 Maxi Massey MD [address] [place], [place] 248807 cyber security systems engineer 02/15/24 Olga Lui APRN WAITSTAFF CAPTAIN [address] [place] [address] Assigned OBGYN Provider 03/29/24 documented as of this encounter
--- OUTSIDE RECORDS SUMMARY | 2024-05-04 10:29 | XMS_ITS | Encounter Summary ---
Author Organization [place] Address [address] [place] [address]. [place] [address] Care Team Providers Care Frit Mixer And Burner Name Role Phone Maria Garcia NP Unavailable [phone] KarinaRachana egan Unavailable [phone] Olga Lui APRN REEL SLITTER Unavailable [phone] Sonja Lemon MD Unavailable [phone] Anitra Albarran MD Unavailable [phone] Jackelyn Metcalf MD Primary Care Provider [phone] Jackelyn Metcalf MD Unavailable Solange Castellon PA-C Unavailable [phone] Maxi Massey MD Unavailable [phone] Olga Lui APRN REEL SLITTER Unavailable [phone] Encounter Details Date Type Department Care Team (Late st Contact Info) Description 12/28/2023 [facility] [place] [place] [facility] [address] [place] [address] [place] [address] [place] [address] Social History Tobacco Use Types [...] on file Legal Sex Female 6:22 AM MARKETING PR INTERN Gender Identity Not on file Sexual Orientation Not on file documented as of this encounter Plan of Treatment Upcoming Encounters Date Type Department Care Team (Late st Contact Info) Description 05/10/2024 3:00 PM MARKETING PR INTERN Office Visit [address] [address] [place] [address] [place] [id number] documented as of this encounter Visit Diagnoses Not on filedocumented in this encounter Care Teams Frit Mixer And Burner Relationship Specialty [place] [address] [place] [id number] PCP - General Internal Medicine 11/21/23 Maria Garcia NP 909 [place] [address] Nurse Practitioner 09/28/22 Rachana Collins AuD 909 [place] [address] Entry Level Paralegal Audiology 09/28/22 Olga Lui APRN CNP [address] [address] Assigned OBGYN Provider 12/25/2202/25 Sonja Lemon MD [address] [place] [address] soft work wrapper layer and examiner 07/26/23 Anitra Albarran MD [address] [place] [address] soft work wrapper layer and examiner 09/26/23 [place] [address] [address] [address] Assigned PCP 12/28/23 Solange Castellon PA-C [address] [facility] [place] [address] Physician Scheduler Maintenance soft work wrapper layer and examiner 02/15/24 02/15/24 Maxi Massey MD [address] [place] [address] soft work wrapper layer and examiner 02/15/24 Olga Lui APRN CNP [address] 571634 Assigned OBGYN Provider 03/29/24 documented as of this encounter
--- OUTSIDE RECORDS SUMMARY | 2024-05-04 10:29 | XMS_ITS | Encounter Summary ---
Author Organization [place] Address [address] [place] [address] Care Team Providers Care Manager Performance Name Role Phone Marai Garcia NP Unavailable [phone] Rachana Collins Unavailable [phone] Olga Lui APRN MOPHEAD TRIMMER AND WRAPPER Unavailable [phone] Samaria Cash PA-C Unavailable Samaria Cash PA-C Primary Care Provider [phone] Sonja Lemon MD Unavailable [phone] Anitra Albarran MD Unavailable [phone] Jackelyn Metcalf MD Primary Care Provider [phone] Jackelyn Metcalf MD Unavailable Solange Castellon PA-C Unavailable [phone] Maxi Massey MD Unavailable [phone] Olga Lui APRN MOPHEAD TRIMMER AND WRAPPER Unavailable [phone] Encounter Details Date Type Department Care Team (Late st Contact Info) Description 03/14/2023 [facility] [address] [place] [address] 700 [place] [address] Olga Lui APRN MOPHEAD TRIMMER AND WRAPPER [address] [place] [address] 700 [place], [place] 420964 Social History Tobacco Use Types Packs/Day Years [...] in an abandoned building, in an overnight alf, or couch-surfing.) Patient refused 01/31/2023 Are you [...] on file Legal Sex Female 6:22 AM HOGSHEAD MAT INSPECTOR Gender Identity Not on file Sexual Orientation Not on file documented as of this encounter Miscellaneous Notes * Telephone Encounter - Olga Lui APRN CNP - 03/14/2023 12:55 PM HOGSHEAD MAT INSPECTOR Hi, I already sent her a message, and a prescription. Waiting for UC for uti meds. Olga Lui APRN CNP HEAD MAT INSPECTOR * Telephone Encounter - Juju Dinh RN - 03/14/2023 12:38 PM HOGSHEAD MAT INSPECTOR Pt wondering about UA/wet prep results + Clue cells UC in process Flagyl pended HEAD MAT INSPECTOR documented in this encounter Plan of Treatment Upcoming Encounters Date Type Department Care Team (Late st Contact Info) Description 05/10/2024 3:00 PM HOGSHEAD MAT INSPECTOR Office Visit [facility] [address] [place] [address] [place] [address] [place], [place] [phone] documented as of this encounter Visit Diagnoses Not on filedocumented in this encounter Care Teams Manager Performance Relationship Specialty Start Date End Date Samaria Cash PA-C [address] [facility] 200 [place] [address] PCP - General Family Medicine 03/10/23 11/14/23 [place] [address] [facility] [place] [phone] PCP - General Internal Medicine 11/21/23 Maria Garcia NP 9 [place], [place] 741355 Nurse Practitioner 09/28/22 Rachana Collins AuD [address] [place], [place] 235425 Technology Services Manager Audiology 09/28/22 Olga Lui APRN CNP [address] [place], [place] 454[address] Assigned OBGYN Provider 12/25/2202/25 Samaria Cash PA-C [address] [facility] 200 [place], [place] 763575 Assigned PCP 02/26/23 12/27/23 Sonja Lemon MD [address] [place], [place] 606787 head cleaning porter 07/26/23 Anitra Albarran MD [address] [place] [address] head cleaning porter 09/26/23 [place] [address] [place] [address] Assigned PCP 12/28/23 Solange Castellon PA-C [address] [place] 459565 Physician Fish Conservationist head cleaning porter 02/15/24 02/15/24 Maxi Massey MD [address] [place] [address] head cleaning porter 02/15/24 Olga Lui APRN MOPHEAD TRIMMER AND WRAPPER [address] [address] Assigned OBGYN Provider 03/29/24 documented as of this encounter
--- OUTSIDE RECORDS SUMMARY | 2024-05-04 10:29 | XMS_ITS | Encounter Summary ---
Author Organization [place] Address [address] [place] [address] Care Team Providers Care Inspector Multifocal Lens Name Role Phone No Ref-Primary, Physician Primary Care Provider Maria Garcia NP Unavailable [phone] Rachana Collins Unavailable [phone] Katie Daley BEET TOPPER PRODUCTION HAND Unavailable Un available Olga Lui APRN PRODUCTION HAND Unavailable [phone] Samaria Cash PA-C Unavailable [phone] Samaria Cash PA-C Primary Care Provider [phone] Sonja Lemon MD Unavailable [phone] Anitra Albarran MD Unavailable [phone] Jackelyn Metcalf MD Primary Care Provider [phone] Jackelyn Metcalf MD Unavailable Solange Castellon PA-C Unavailable [phone] Maxi Massey MD Unavailable [phone] Olga Lui APRN PRODUCTION HAND Unavailable [phone] Encounter Details Date Type Department Care Team (Late st Contact Info) Description 01/24/2023 [facility] [address] [place] [address] Olga Iglesias Social History Tobacco [...] on file Legal Sex Female 6:22 AM TOURIST INFORMATION ASSISTANT Gender Identity Not on file Sexual Orientation Not on file documented as of this encounter Plan of Treatment Upcoming Encounters Date Type Department Care Team (Late st Contact Info) Description 05/10/2024 3:00 PM TOURIST INFORMATION ASSISTANT Office Visit [facility] [address] [place] [phone] [place] [address] [place], [place] 4678068 documented as of this encounter Visit Diagnoses Not on filedocumented in this encounter Care Teams Inspector Multifocal Lens Relationship Specialty Start Date End Date No Ref-Primary, Physician PCP - General 04/17/20 03/09/23 Samaria Cash PA-C [address] 374575 PCP - General Family Medicine 03/10/23 11/14/23 [place] [address] [facility] [place] [address] PCP - General Internal Medicine 11/21/23 Maria Garcia NP [address] [place] [address] 793935 Nurse Practitioner 09/28/22 Rachana Collins AuD [address] [place] [address] 382155 Field Return Repairer Audiology 09/28/22 Katie Daley APRN PRODUCTION HAND Assigned PCP 09/02/22 02/04/23 Olga Lui APRN PRODUCTION HAND [address] [place], [place] 455484 Assigned OBGYN Provider 12/25/2202/25 Samaria Cash PA-C [address] [facility] 200 [place], [place] 419865 Assigned PCP 02/26/23 12/27/23 Sonja Lemon MD [address] [place] [address] road freight brake coupler 07/26/23 Anitra Albarran MD [address] [place], [place] 911787 road freight brake coupler 09/26/23 [place] [address] [place] [address] Assigned PCP 12/28/23 Solange Castellon PA-C [address] [place] 897215 Physician Bag Turner road freight brake coupler 02/15/24 02/15/24 Maxi Massey MD [address] [place] 066477 road freight brake coupler 02/15/24 Olga Lui APRN PRODUCTION HAND [address] [address] Assigned OBGYN Provider 03/29/24 documented as of this encounter
--- OUTSIDE RECORDS SUMMARY | 2024-05-04 10:29 | XMS_ITS | Encounter Summary ---
Author Organization [place] Address [address] [place] [address]. [place] [address] Care Team Providers Care Graduate Internship Name Role Phone Maria Garcia NP Unavailable [phone] Rachana Collins Unavailable [phone] Olga Lui APRN HORTICULTURE TEACHER Unavailable [phone] Sonja Lemon MD Unavailable [phone] Anitra Albarran MD Unavailable [phone] Jackelyn Metcalf MD Primary Care Provider Jackelyn Metcalf MD Unavailable Solange Castellon PA-C Unavailable +[phone] Maxi Massey MD Unavailable [phone] Olga Lui APRN HORTICULTURE TEACHER Unavailable [phone] Encounter Details Date Type Department Care Team (Late st Contact Info) Description 01/30/2024 [facility] [address] [place] [address] [place] [address] [place] [address] Social History Tobacco Use Types [...] on file Legal Sex Female 6:22 AM EXHAUST EQUIPMENT OPERATOR Gender Identity Not on file Sexual Orientation Not on file documented as of this encounter Plan of Treatment Upcoming Encounters Date Type Department Care Team (Late st Contact Info) Description 05/10/2024 3:00 PM EXHAUST EQUIPMENT OPERATOR Office Visit [address] [address] [place] [address] [place] 7026868 documented as of this encounter Visit Diagnoses Not on filedocumented in this encounter Care Teams Graduate Internship Relationship Specialty Start [place] [address] [address] [place] 6738668 PCP - General Internal Medicine 11/21/23 Maria Garcia NP 909 [place] [address] Nurse Practitioner 09/28/22 Rachana Collins AuD 909 [place] [address] Women'S Studies Lecturer Audiology 09/28/22 Olga Lui APRN CNP [address] [address] Assigned OBGYN Provider 12/25/2202/25 Sonja Lemon MD [address] [place] [address] newswriter 07/26/23 Anitra Albarran MD [address] [place] [address] newswriter 09/26/23 [place] [address] [address] [address] Assigned PCP 12/28/23 Solange Castellon PA-C 6525 [facility] [place] [address] Physician Industrial Electrical Engineer newswriter 02/15/24 02/15/24 Maxi Massey MD [address] [place] [address] newswriter 02/15/24 Olga Lui APRN CNP [address] 407644 Assigned OBGYN Provider 03/29/24 documented as of this encounter
--- OUTSIDE RECORDS SUMMARY | 2024-05-04 10:29 | XMS_ITS | Encounter Summary ---
Author Organization [place] Address [address] [place] [address] Care Team Providers Care Business Continuity Management Director Name Role Phone No Ref-Primary, Physician Primary Care Provider Maria Garcia NP Unavailable [phone] Rachana Collins Unavailable [phone] Katie Daley METAL FURNITURE GLAZIER CTC OPERATOR Unavailable Un available Olga Lui APRN CTC OPERATOR Unavailable [phone] Samaria Cash PA-C Unavailable [phone] Samaria Cash PA-C Primary Care Provider [phone] Sonja Lemon MD Unavailable [phone] Anitra Albarran MD Unavailable [phone] Jackelyn Metcalf MD Primary Care Provider [phone] Jackelyn Metcalf MD Unavailable Solange Castellon PA-C Unavailable [phone] Maxi Massey MD Unavailable [phone] Olga Lui APRN CTC OPERATOR Unavailable [phone] Encounter Details Date Type Department Care Team (Late st Contact Info) Description 01/10/2023 [facility] [address] [place] [address] Gatito Nicole Social History Tobacco [...] on file 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 Gender Identity Not on file Sexual Orientation Not on file documented as of this encounter Plan of Treatment Upcoming Encounters Date Type Department Care Team (Late st Contact Info) Description 05/10/2024 3:00 PM BILINGUAL MEDICAL ASSISTANT Office Visit [facility] [address] [place] [address] [place] [address] [place], [place] 4687368 documented as of this encounter Visit Diagnoses Not on filedocumented in this encounter Care Teams Business Continuity Management Director Relationship Specialty Start Date End Date No Ref-Primary, Physician PCP - General 04/17/20 03/09/23 Samaria Cash PA-C [address] 748635 PCP - General Family Medicine 03/10/23 11/14/23 [place] [address] [place] [address] PCP - General Internal Medicine 11/21/23 Maria Gacria NP [address] [place] [address] 850985 Nurse Practitioner 09/28/22 Rachana Collins AuD [address] [place] [address] Maple Products Supervisor Audiology 09/28/22 Katie Daley APRN CTC OPERATOR Assigned PCP 09/02/22 02/04/23 Olga Lui APRN CTC OPERATOR [address] [place], [place] 820234 Assigned OBGYN Provider 12/25/2202/25 Samaria Cash PA-C [address] [facility] 200 [place], [place] 628705 Assigned PCP 02/26/23 12/27/23 Sonja Lemon MD [address] [facility] [place] [place] 650427 statue carver 07/26/23 Anitra Albarran MD [address] [facility] [place] [place] 276497 statue carver 09/26/23 [place] [address] [place] [address] Assigned PCP 12/28/23 Solange Castellon PA-C [address] 065685 Physician Window Dresser statue carver 02/15/24 02/15/24 Maxi Massey MD [address] [place] 105227 statue carver 02/15/24 Olga Lui APRN CTC OPERATOR [address] [address] Assigned OBGYN Provider 03/29/24 documented as of this encounter
--- OUTSIDE RECORDS SUMMARY | 2024-05-04 10:29 | XMS_ITS | Encounter Summary ---
Author Organization [place] Address [address] [place] [address]. [place] [address] Care Team Providers Care Valve Inserter Name Role Phone Maria Garcia NP Unavailable [phone] Rachana Collins Unavailable [phone] Olga Lui APRN DIESEL POWERPLANT SUPERVISOR Unavailable [phone] Samaria Cash PA-C Unavailable Samaria Cash PA-C Primary Care Provider [phone] Sonja Lemon MD Unavailable +[phone] Anitra Albarran MD Unavailable [phone] Jackelyn Metcalf MD Primary Care Provider [phone] Jackelyn Metcalf MD Unavailable Solange Castellon PA-C Unavailable [phone] Maxi Massey MD Unavailable [phone] Olga Lui APRN DIESEL POWERPLANT SUPERVISOR Unavailable [phone] Encounter Details Date Type Department Care Team (Late st Contact Info) Description 08/23/2023 [facility] [address] [place] [address] [place] [address] [place] [address] Social History Tobacco Use Types [...] file 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 [address] [place] [address] [place] [address] [address] [place] 2245268 documented as of this encounter Visit Diagnoses Not on filedocumented in this encounter Care Teams Valve Inserter Relationship Specialty Start Date End Date Samaria Cash PA-C [address] [place] [address] PCP - General Family Medicine 03/10/23 11/14/23 [place] [address] [address] [place] 7667968 PCP - General Internal Medicine 11/21/23 Maria Garcia NP 909 [place], [place] 598545 Nurse Practitioner 09/28/22 Rachana Collins AuD 909 [employer], [place] 235755 Shank Sander Audiology 09/28/22 Olga Lui APRN CNP [address] 700 [place], [place] 732144 Assigned OBGYN Provider 12/25/2202/25 Samaria Cash PA-C [address] [place] [address] Assigned PCP 02/26/23 12/27/23 Sonja Lemon MD [address] [place] [address] chief librarian music department 07/26/23 Anitra Albarran MD [address] [place] [place] [address] chief librarian music department 09/26/23 [place] [address] [address] Assigned PCP 12/28/23 Solange Castellon PA-C 6525 [facility] [place] [address] Physician Plastic Surgery Nurse chief librarian music department 02/15/24 02/15/24 Maxi Massey MD [address] [place] [place], [place] 312137 chief librarian music department 02/15/24 Olga Lui APRN CNP [address] 707[address] Assigned OBGYN Provider 03/29/24 documented as of this encounter
--- OUTSIDE RECORDS SUMMARY | 2024-05-04 10:29 | XMS_ITS | Encounter Summary ---
Author Organization [place] Address [address] [place] [address] Care Team Providers Care Access Tech Name Role Phone No Ref-Primary, Physician Primary Care Provider Maria Garcia NP Unavailable [phone] Rachana Collins Unavailable [phone] Olga Lui APRN BAND DIRECTOR Unavailable [phone] Samaria Cash PA-C Unavailable [phone] Samaria Cash PA-C Primary Care Provider Sojna Lemon MD Unavailable [phone] Anitra Albarran MD Unavailable [phone] Jackelyn Metcalf MD Primary Care Provider [phone] Jackelyn Metcalf MD Unavailable Solange Castellon PA-C Unavailable [phone] Maxi Massey MD Unavailable [phone] Olga Lui APRN BAND DIRECTOR Unavailable [phone] Encounter Details Date Type Department Care Team (Late st Contact Info) Description 02/16/2023 [facility] [address] [place] [address] 700 [place] [address] Olga Lui APRN BAND DIRECTOR [address] [place] [address] Social History Tobacco Use Types Packs/Day Years [...] on file Legal Sex Female 6:22 AM BRIDGE ENGINEER Gender Identity Not on file Sexual Orientation Not on file documented as of this encounter Plan of Treatment Upcoming Encounters Date Type Department Care Team (Late st Contact Info) Description 05/10/2024 3:00 PM BRIDGE ENGINEER Office Visit [facility] [place] [address] [address] [phone] [place] [address] [address] 8615568 documented as of this encounter Visit Diagnoses Not on filedocumented in this encounter Care Teams Access Tech Relationship Specialty Start Date End Date No Ref-Primary, Physician PCP - General 04/17/20 03/09/23 Samaria Cash PA-C 6565 [facility] 200 [place], [place] 9[address]195 PCP - General Family Medicine 03/10/23 11/14/23 [place] [address] [place] [address] PCP - General Internal Medicine 11/21/23 Maria Garcia NP 9 [place], [place] 887005 Nurse Practitioner 09/28/22 Rachana Collins AuD 9 [place], [place] 570205 Supervisor Dock Audiology 09/28/22 Olga Lui APRN CNP 606 [facility] 700 [place] [address] Assigned OBGYN Provider 12/25/2202/25 Samaria Cash PA-C [address] [place] [address] Assigned PCP 02/26/23 12/27/23 Sonja Lemon MD [address] [place] [address] patient support associate 07/26/23 Anitra Albarran MD [address] [place] [address] patient support associate 09/26/23 [place] [address] [address] [facility] [place] [address] Assigned PCP 12/28/23 Solange Castellon PA-C [address] [place] [address] Physician Lighting Director patient support associate 02/15/24 02/15/24 Maxi Massey MD [address] [place] [address] patient support associate 02/15/24 Olga Lui APRN BAND DIRECTOR [address] 700 [place] [address] Assigned OBGYN Provider 03/29/24 documented as of this encounter
--- OUTSIDE RECORDS SUMMARY | 2024-05-04 10:29 | XMS_ITS | Encounter Summary ---
Author Organization [place] Address [facility] [place] [address] Care Team Providers Care Well Drill Operator Rotary Drill Name Role Phone Maria Garcia NP Unavailable [phone] Rachana Collins Unavailable [phone] Olga Lui APRN MUNICIPAL CLERK Unavailable [phone] Samaria Cash PA-C Unavailable [phone] Samaria Cash PA-C Primary Care Provider [phone] Sonja Lemon MD Unavailable [phone] Anitra Albarran MD Unavailable [phone] Jackelyn Metcalf MD Primary Care Provider [phone] Jackelny Metcalf MD Unavailable Solange Castellon PA-C Unavailable [phone] Maxi Massey MD Unavailable [phone] Olga Lui APRN MUNICIPAL CLERK Unavailable [phone] Reason for Referral * Consultation (Routine: Next available opening) - Pending Review Specialty Diagnoses / Procedures Referred By Heather florez Referred To Contact Otolaryngology Diagnoses Burning sensation of mouth Samaria Cash PA-C 49[address] [facility] [address] [facility] 200 [place] [address] Phone: tel: fax: [facility] [place] [address] [place] [address] Phone: tel: fax: Referral ID Status Reason Start Date Expiration Date V isits Requested Visits Authorized [id number] Pending Review 07/27/2023 07/26/2024 1 1 Question [...] Contact Info) Description 07/27/2023 My[facility] Medical Advice [address] [address] Samaria Cash PA-C 6565 [facility] 200 [place], [place] 5668[address] Patient Request Social History Tobacco Use Types [...] on file Legal Sex Female 6:22 AM SUPERVISOR JOINERS Gender Identity Not on file Sexual Orientation Not on file documented as of this encounter Miscellaneous Notes * Telephone Encounter - Dana Montez MA - 07/27/2023 1:01 PM CDT Faxed ENT [phone] Burak rodríguez * Telephone Encounter - Samaria Cash PA-C - 07/27/2023 12:01 PM CDT External referral to ENT In my outbox. Please fax. * Telephone Encounter - Leda Roldan RN - 07/27/2023 11:01 AM CDT Samaria- see [email or web address] message below. Please advise. Leda Fedderly, RN documented in this encounter Plan of Treatment Upcoming Encounters Date Type Department Care Team (Late st Contact Info) Description 05/10/2024 3:00 PM SUPERVISOR JOINERS Office [facility] [address] [place] [address] [place] [address] [place] [address] Scheduled Referrals Name Type Priority Associated Diagnoses Orde r Schedule Adult ENT Hotbed Lever Operator Referral Referral Routine: Next available opening Burning sensation of mouth Expected: 07/27/2023 (Approximate), Expires: 07/26/2024 documented as of this encounter Visit Diagnoses Diagnosis Burning sensation of mouth- Primary Other and unspecified diseases of the oral soft tissues documented in this encounter Care Teams Well Drill Operator Rotary Drill Relationship Specialty Start Date End Date Samaria Cash PA-C 6565 [facility] 200 [place], [place] [address] PCP - General Family Medicine 03/10/23 11/14/23 [place] [address] [facility] [place] [address] PCP - General Internal Medicine 11/21/23 Maria Garcia NP [address] [place] [address] 846355 Nurse Practitioner 09/28/22 Rachana Collins AuD [address] [place] [address] 531235 Assurance Senior Audiology 09/28/22 Olga Lui APRN MUNICIPAL CLERK [address] [address] [facility] 700 [place] [address] Assigned OBGYN Provider 12/25/2202/25 Samaria Cash PA-C [address] [facility] 200 [place] [address] Assigned PCP 02/26/23 12/27/23 Sonja Lemon MD [address] [place] [address] client solutions manager 07/26/23 Anitra Albarran MD [address] [place] [address] client solutions manager 09/26/23 [place] [address] [facility] [place] [address] Assigned PCP 12/28/23 Solange Castellon PA-C [address] [place] [address] Physician Software Tester client solutions manager 02/15/24 02/15/24 Maxi Massey MD [address] [place] [address] client solutions manager 02/15/24 Olga Lui APRN MUNICIPAL CLERK [address] [facility] 700 [place] [address] Assigned OBGYN Provider 03/29/24 documented as of this encounter
--- OUTSIDE RECORDS SUMMARY | 2024-05-04 10:29 | XMS_ITS | Encounter Summary ---
Author Organization [facility] Address [address] [place] [address] Care Team Providers Care Trade Analyst Name Role Phone No Ref-Primary, Physician Primary Care Provider Maria Garcia NP Unavailable [phone] Rachana Collins Unavailable [phone] Katie Daley APRN RESIN MAKER Unavailable Un available Olga Lui APRN RESIN MAKER Unavailable [phone] Samaria Cash PA-C Unavailable [phone] Samaria Cash PA-C Primary Care Provider [phone] Sonja Lemon MD Unavailable [phone] Anitra Albarran MD Unavailable [phone] Jackelyn Metcalf MD Primary Care Provider [phone] Jackelyn Metcalf MD Unavailable Solange Castellon PA-C Unavailable [phone] Maxi Massey MD Unavailable [phone] Olga Lui APRN RESIN MAKER Unavailable [phone] Encounter Details Date Type Department Care Team (Late st Contact Info) Description 01/11/2023 [facility] [address] [address] Olga Lui APRN CNP 606 [facility] 700 [place] [address] Social History Tobacco Use Types Packs/Day Years [...] on file Legal Sex Female 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 HELPER Gender Identity Not on file Sexual Orientation Not on file documented as of this encounter Plan of Treatment Upcoming Encounters Date Type Department Care Team (Late st Contact Info) Description 05/10/2024 3:00 PM ELEVATOR ERECTOR HELPER Office Visit [facility] [address] [place] [address] [place] [address] [place], [place] 3557368 documented as of this encounter Visit Diagnoses Not on filedocumented in this encounter Care Teams Trade Analyst Relationship Specialty Start Date End Date No Ref-Primary, Physician PCP - General 04/17/20 03/09/23 Samaria Cash PA-C 6565 [facility] 200 [place], [place] 886385 PCP - General Family Medicine 03/10/23 11/14/23 [place] [address] [place], [place] 7835168 PCP - General Internal Medicine 11/21/23 Maria Garcia NP [address] [place] [address] Nurse Practitioner 09/28/22 Rachana Collins AuD 909 [place], [place] 430395 Telephone Diaphragm Assembler Audiology 09/28/22 Katie Daley, FACTORY CLERK RESIN MAKER Assigned PCP 09/02/22 02/04/23 Olga Lui APRN RESIN MAKER [address] [place], [place] [address] Assigned OBGYN Provider 12/25/2202/25 Samaria Cash PA-C [address] [facility] [address] [address] [facility] 200 [place], [place] 112955 Assigned PCP 02/26/23 12/27/23 Sonja Lemon MD [address] [place], [place] [address] screen printing equipment setter 07/26/23 Anitra Albarran MD [address] [place], [place] 543047 screen printing equipment setter 09/26/23 [place] [address] [place] [address] Assigned PCP 12/28/23 Solange Castellon PA-C [address] [place] [address] Physician Paper Coating Supervisor screen printing equipment setter 02/15/24 02/15/24 Maxi Massey MD [address] [place] [address] screen printing equipment setter 02/15/24 Olga Lui APRN RESIN MAKER [address] [place] [address] Assigned OBGYN Provider 03/29/24 documented as of this encounter
[2024-05-04] MEDS: KETOROLAC 30 MG/ML inj 15 MG IM (11:00)
--- NOTE | 2024-05-04 12:22 | ED.GENADULT ---
HPI - General Adult General Chief complaint: Extremity Pain/Injury, Lower Stated complaint: L leg, hip numbness Time Seen by Provider: 05/04/24 10:03 History of Present Illness HPI narrative: This 54-year-old female comes in reporting severe pain in her low back radiating all way down her left leg. This began 3 or 4 days ago and was not related to any particular injury event or strenuous activity. She called in to her primary physician and did get prescriptions for gabapentin, Flexeril, and Medrol Dosepak. She states that the Flexeril has seemed to help her a little bit. She then went to [facility] and had x-rays done showing some degenerative changes. She comes in today because her pain is worsened she has pain radiating down her left leg. Related Data Home Medications ?Medication ?Instructions ?Recorded ?Confirmed albuterol sulfate 90 mcg/actuation inhalation 04/02/24 04/02/24 aerosol inhaler clotrimazole 10 mg toma mg PO 04/02/24 04/02/24 fluoxetine 20 mg capsule 20 mg PO DAILY 04/02/24 05/04/24 omeprazole 20 mg capsule,delayed 20 mg PO DAILY 04/02/24 05/04/24 release trazodone 50 mg tablet 50 mg PO HS 04/02/24 05/04/24 cyclobenzaprine 5 mg tablet 5 mg PO TID PRN 05/04/24 05/04/24 gabapentin 100 mg capsule 100 mg PO HS 05/04/24 05/04/24 methylprednisolone 4 mg tablets in mg 05/04/24 a dose pack Previous Rx's ?Medication ?Instructions ?Recorded cyclobenzaprine 10 mg tablet 10 mg PO TID #15 tabs 05/04/24 ketorolac 10 mg tablet 10 mg PO Q8H 5 days #15 tabs 05/04/24 tramadol 50 mg tablet 50 mg PO Q6H PRN pain #15 tabs 05/04/24 Allergies Allergy/AdvReac Type Severity Reaction Status Date / Time codeine AdvReac Intermediate Gastrointestinal Verified 05/04/24 09:26 Upset adhesive tape AdvReac Mild Rash Verified 05/04/24 09:26 Review of Systems Status of ROS: Reports: 10 or more systems reviewed and unremarkable except as noted in History and below Narrative: Constitutional: No fevers, no weight gain or loss. Eyes: No discharge. No vision changes. HENT: No congestion, no sore throat, no ear pain. Cardiovascular: No chest pain, no palpitations. Respiratory: No shortness of breath, no wheezes, no cough. Gastrointestinal: No abdominal pain, no vomiting, no diarrhea. Genitourinary: No dysuria, no hematuria. Musculoskeletal: Normal range of motion. Skin: No rashes, no pruritis. Neurological: No dizziness, weakness, speech change. Pain and tingling sensation down the left leg. Endo/Heme/Allergies: No bruising or bleeding. No polydipsia. Pysch: no suicidality, no anxiety, no insomnia. All other systems reviewed and are negative. PFSH PFS Social History Smoking Status: Unknown if ever smoked How often do you have a drink containing alcohol: never AUDIT-C Alcohol total score: 0 Non-prescribed substance use: denies use Exam Const: Vital Signs, click to edit/add: Vital Signs - 24 hr 05/04/24 09:20 Temperature 97.8 F Pulse Rate [Pulse Oximeter] 93 Respiratory Rate 18 Blood Pressure [Ri ght Upper Arm] 119/77 Pulse Oximetry 96 Oxygen Delivery Me thod Room Air Course Vital Signs Vital signs: Initial Vital Signs Temperature 97.8 F 05/04/24 09:20 Temperature Source Temporal Artery Scan 05/04/24 09:20 Pulse Rate 93 05/04/24 09:20 Respiratory Rate 18 05/04/24 09:20 Blood Pressure 119/77 05/04/24 09:20 Blood Pressure Mean 91 05/04/24 09:20 Blood Pressure Position Sitting 05/04/24 09:20 Pulse Oximetry 96 05/04/24 09:20 Oxygen Delivery Method Room Air 05/04/24 09:20 Vital Signs Temperature 97.8 F 05/04/24 09:20 Pulse Rate 93 05/04/24 09:20 Respiratory Rate 18 05/04/24 09:20 Blood Pressure 119/77 05/04/24 09:20 Pulse Oximetry 96 05/04/24 09:20 Oxygen Delivery Method Room Air 05/04/24 09:20 Temperature 97.8 F 05/04/24 09:20 Pulse Rate 93 05/04/24 09:20 Respiratory Rate 18 05/04/24 09:20 Blood Pressure 119/77 05/04/24 09:20 Pulse Oximetry 96 05/04/24 09:20 Oxygen Delivery Method Room Air 05/04/24 09:20 Medications Administered Medications: Discontinued Medications Generic Name Dose Route Start Last Admin Trade Name Andreia PRN Reason Stop Dose Admin Ketorolac Tromethamine 15 mg 05/04/24 10:56 05/04/24 11:00 Ketorolac 30 Mg/Ml Inj IM 05/04/24 10:57 15 mg ONCE ONE Administration Medical Decision Making MDM Narrative Medical decision making narrative: This patient comes in with symptoms typical of a lumbar radiculopathy. There was a slot available for MRI study which does show evidence of nerve impingement. The patient did receive an intramuscular injection of Toradol 15 mg. An MRI is obtained of her lumbar spine and does show evidence of lumbar radiculopathy with nerve impingement at L2-L3. Patient states that she is feeling relief from the injection of Toradol. She does have a Medrol Dosepak that she has not yet started. I did provide prescriptions for Flexeril, Toradol, and a few tablets of tramadol. She does have a follow-up appointment with [facility] in May. I did mention that we have a spine clinic here that would also be an option for her if desired. Imaging Data MR - Other: Radiologist's impression: Multilevel degenerative changes of the lumbar spine as described above worst at the L2-L3 level with a left foraminal and lateral disc extrusion with effacement of the exiting nerve root. Correlate with history of clinical symptoms. Other degenerative disc disease changes are as described above worst at the L4-L5 level. Discharge Plan Discharge Clinical Impression: Acute lumbar radiculopathy Patient Disposition: Home, Self-Care Condition: Stable Additional Instructions: Take medications as prescribed and needed. Follow up with clinic as scheduled or consider our spine clinic here. An appointment can be made by dialing [phone]. Return if worsening. Prescriptions: New cyclobenzaprine 10 mg tablet 10 mg PO TID Qty: 15 0RF tramadol 50 mg tablet 50 mg PO Q6H PRN (Reason: pain) Qty: 15 0RF ketorolac 10 mg tablet 10 mg PO Q8H 5 Days Qty: 15 0RF No Action clotrimazole 10 mg toma PO fluoxetine 20 mg capsule 20 mg PO DAILY albuterol sulfate 90 mcg/actuation HFA aerosol inhaler inhalation Patient Comments: [NO ORIGINAL SIG] trazodone 50 mg tablet 50 mg PO HS Patient Comments: [NO ORIGINAL SIG] omeprazole 20 mg capsule,delayed release(DR/EC) 20 mg PO DAILY gabapentin 100 mg capsule 100 mg PO HS cyclobenzaprine 5 mg tablet 5 mg PO TID PRN methylprednisolone 4 mg tablets,dose pack Patient Comments: [NO ORIGINAL SIG] Follow Up/Referrals: Provider,Not a Local [Primary Care Provider] - Stand Alone Forms: [employer] Info Instructions
[2024-05-04 13:21] VITALS: BP 125/70; PULSE 69; RESP 19; TEMP 36.7; O2SAT 95
== END 2024-05-04 13:24 | disposition home or self-care (01) ==
PROVIDERS: Emergency Provider Emergency Medicine Emergency Medical Services
DX: M54.16 Radiculopathy, lumbar region (principal)
CPT/HCPCS: 72148; 96372; 96374; 99284; 99285; J1885